=== PATIENT | female | born 1945 | race Two or more races ===

== ENCOUNTER 2021-04-11 19:50 | Emergency (ER) | payer MEDICARE, MEDICAID, SELFPAY ==
[2021-04-11 20:18] VITALS: BP 125/55; PULSE 58; RESP 18; TEMP 36.6; O2SAT 99; BMI 29.5
--- NOTE | 2021-04-11 21:06 | ED.EXTPRO ---
HPI - Extremity Problem General Chief complaint: Extremity Problem Stated complaint: Knee pain Time Seen by Provider: 04/11/21 21:02 Source: patient and family Limitations: language barrier ( family interpreted) History of Present Illness HPI Narrative: patient is a 75-year-old female with a past medical history of right knee replacement presenting with left knee pain. Patient's family states her knee pain started a little while ago but got worse last week after she was kneeling on her bed for an extended period of time. They state it is worse when she is standing and much worse when she is walking. Patient said she has been taking naproxen without relief. She uses a cane or home but this is not enough to help her ambulate safely. She has been trying to see her primary care doctor but her primary care doctor is out on a long-term leave. Her family states she has a appointment with Orthopedics on April 26 but a referral is required prior to her going. Related Data Home Medications Medication Instructions Recorded Confirmed lorazepam 0.5 mg tablet 0.5 mg PO BEDTIME PRN 09/26/20 paroxetine HCl 10 mg tablet 10 mg PO DAILY 09/26/20 Previous Rx's Medication Instructions Recorded pregabalin 150 mg capsule 150 mg PO BID 90 Days #180 cap 12/18/20 naproxen sodium 550 mg tablet 550 mg PO Q12H 90 Days #180 tab 03/21/21 Allergies Allergy/AdvReac Type Severity Reaction Status Date / Time No Known Allergies Allergy Verified 09/26/20 14:09 [No Known Allergies*] Review of Systems Review of Systems: Yes all other systems are reviewed and are negative [facility] Past Medical History Surgical History History of cataract surgery History of section History of knee replacement procedure of right knee History of shoulder surgery History of toe surgery Family History Family History Father Alzheimers disease Mother Vaginal cancer Brother Stomach cancer Social History Social History Advance Directives: No Physical Exam Vital Signs: Vital Signs: Last Vital Signs Temp 97.9 F 04/11/21 20:18 Pulse 58 04/11/21 20:18 Resp 18 04/11/21 20:18 BP 125/55 L 04/11/21 20:18 Pulse Ox 99 04/11/21 20:18 Body Mass Index 29.5 Const: General: cooperative, healthy appearing, comfortable and no acute distress Nutritional Appearance: obese Orientation/consciousness: patient oriented x3 Limitations: language barrier ( Bengali-speaking) HENMT: Head: Yes normal to inspection and Yes normocephalic Eyes: General: appearance normal, both eyes and all related structures Neck: Neck: Yes normal visual inspection and Yes full ROM Resp: Effort & Inspection: normal respiratory effort and able to speak in complete sentences Neuro: General: patient oriented x3 Extrem: Other: Right knee has long vertical scar over kneecap, otherwise unremarkable Left knee normal to inspection, full range of motion, no edema, no tenderness to palpation, no signs of infection noted, no laxity in the joint, neg patellar ballottement. Difficulty ambulating. Course Course Course Narrative: will give Toradol injection for pain control, wrapped knee and give patient a walker so she is safe at home. Will send referral to Orthopedics. Discharge Plan Discharge Clinical Impression: Knee pain, left Qualifiers: Chronicity: acute Qualified Code(s): M25.562 - Pain in left knee Patient Disposition: Home, Self-Care Instructions: Knee Pain (ED) Prescriptions: No Action pregabalin [Lyrica] 150 mg capsule 150 mg PO BID 90 Days Qty: 180 RF: 1 naproxen sodium 550 mg tablet 550 mg PO Q12H 90 Days Qty: 180 RF: 3 lorazepam 0.5 mg tablet 0.5 mg PO BEDTIME PRNRF: 0 paroxetine HCl 10 mg tablet 10 mg PO DAILY RF: 0 Referrals: Khris Guerrero MD [Physician] - 2 days (pt has appt on 04/26, she needs a referral for it but her PCP is out [facility], left knee pain) Print Language: Bengali
[2021-04-11] MEDS: Ketorolac Tromethamine 60 MG/2 ML VIAL IM (21:13)
== END 2021-04-11 21:21 | disposition home or self-care (01) ==
PROVIDERS: Emergency Provider Internal Medicine; PCP Hospitalist
DX: M25.562 Pain in left knee (principal)
CPT/HCPCS: 96372; 99283; 99284; J1885

== ENCOUNTER 2021-04-26 09:29 | Outpatient (REF) | payer MEDICARE, MEDICAID, SELFPAY ==
--- NOTE | ~2021-04-26 | XR_ITS ---
EXAMINATION: BILATERAL KNEES STANDING. LEFT KNEE. CLINICAL INFORMATION: Pain left knee. COMPARISON: None TECHNIQUE: AP bilateral knees standing. Left knee 2 views. FINDINGS: AP bilateral knee: There is a total right knee arthroplasty with prosthetic components in satisfactory alignment. No loosening. There is moderate loss of medial compartment joint space left knee. There is mild loss of patellofemoral compartment joint space with minimal suprapatellar joint effusion. There is mild periarticular spurring in the tricompartments of the left knee. No acute fracture or dislocation. XR/XR knee standing BI IMPRESSION: Mild degenerative changes in the tricompartments of left knee with moderate loss in medial and mild loss of patellofemoral compartment joint space. Minimal suprapatellar joint effusion. Total right knee arthroplasty with prosthetic components in satisfactory alignment.
--- NOTE | ~2021-04-26 | XR_ITS ---
EXAMINATION: BILATERAL KNEES STANDING. LEFT KNEE. CLINICAL INFORMATION: Pain left knee. COMPARISON: None TECHNIQUE: AP bilateral knees standing. Left knee 2 views. FINDINGS: AP bilateral knee: There is a total right knee arthroplasty with prosthetic components in satisfactory alignment. No loosening. There is moderate loss of medial compartment joint space left knee. There is mild loss of patellofemoral compartment joint space with minimal suprapatellar joint effusion. There is mild periarticular spurring in the tricompartments of the left knee. No acute fracture or dislocation. XR/XR knee LT 2V IMPRESSION: Mild degenerative changes in the tricompartments of left knee with moderate loss in medial and mild loss of patellofemoral compartment joint space. Minimal suprapatellar joint effusion. Total right knee arthroplasty with prosthetic components in satisfactory alignment.
== END 2021-04-26 09:30 | disposition home or self-care (01) ==
LOC: HO.HOSX 09:29
PROVIDERS: Visit Provider Orthopaedic Surgery
DX: M17.12 Unilateral primary osteoarthritis, left knee (principal); M54.16 Radiculopathy, lumbar region; Z96.651 Presence of right artificial knee joint
CPT/HCPCS: 20610; 73560; 73565; 99212; J1100

== ENCOUNTER → 2021-07-29 10:15 | Outpatient (BNVA) | payer MEDICARE, MEDICAID, SELFPAY | PROVIDERS: Visit Provider Orthopaedic Surgery | DX: M17.12 Unilateral primary osteoarthritis, left knee (principal) | CPT/HCPCS: 20610; 99212; J1100 ==

== ENCOUNTER → 2021-10-28 10:07 | Outpatient (BNVA) | payer MEDICARE, MEDICAID, SELFPAY | PROVIDERS: PCP Hospitalist; Visit Provider Orthopaedic Surgery | DX: M17.12 Unilateral primary osteoarthritis, left knee (principal); M75.52 Bursitis of left shoulder; Z96.651 Presence of right artificial knee joint | CPT/HCPCS: 99212 ==

== ENCOUNTER 2023-10-28 12:47 | Emergency (ER) | payer MEDICARE, MEDICAID, SELFPAY ==
--- NOTE | ~2023-10-28 | CT_ITS ---
EXAMINATION: CT ANGIOGRAM OF THE CHEST WITH AND WITHOUT CONTRAST (CT PULMONARY ANGIOGRAM FOR PE) CLINICAL INFORMATION: History of Covid 19 infection; shortness of breath; question pulmonary embolus. COMPARISON: Chest radiographs dated 10/28/2013. TECHNIQUE: Prior to contrast administration, noncontrast localization images were obtained. Subsequently, multidetector volumetric imaging was performed from the thoracic inlet to below the diaphragms following the administration of 65 mL Omnipaque 350 intravenous contrast. No contrast reaction reported Sagittal, coronal, and MIP oblique sagittal reformatted images were obtained on the CT workstation, uploaded to PACS, and reviewed. This CT examination was performed using dose optimization techniques as appropriate, variously including the following: *Automated exposure control *Adjustment of mA and/or kV according to patient size (this includes techniques or standardized protocols for targeted exams where dose is matched to indication/reason for exam; i.e. extremities or head) *Use of iterative reconstruction technique Total exam dose-length product 200 mGy-cm FINDINGS: QUALITY OF STUDY/CONTRAST BOLUS: Satisfactory. PULMONARY ARTERIES: No pulmonary emboli. THORACIC AORTA: No aneurysm or dissection. LUNG: There is patchy groundglass attenuation, most pronounced within the posterior segment of the right upper lobe. There is bibasilar dependent hypoaeration. No nodule or mass is seen. There is generalized small airway thickening. The central airways appear patent. PLEURA: No pleural effusion or pneumothorax. MEDIASTINUM: There is mild cardiomegaly. No pericardial effusion. No hilar or mediastinal lymphadenopathy. No evidence of septal bowing or right heart strain. CORONARY ARTERY CALCIFICATION: None visualized on this study. CHEST WALL/AXILLA: No axillary or internal mammary lymphadenopathy. OSSEOUS STRUCTURES: There is multi-level marked mid to lower thoracic degenerative disc disease and spondylosis. No acute or aggressive osseous finding is noted. UPPER ABDOMEN: Unremarkable. No reflux of contrast into the hepatic veins to suggest elevated right heart pressures. CT/CT angio chest PE protocol IMPRESSION: 1. There are patchy foci of groundglass attenuation, most pronounced within the posterior segment of the right upper lobe. These are likely infectious or inflammatory in etiology. Recommend clinical correlation and short-term follow-up CT imaging 1-3 months to ensure regression/resolution. 2. There is generalized small airway thickening, also likely infectious or inflammatory etiology. 3. No pulmonary embolus is seen. There is no thoracic aortic aneurysm or dissection noted. 4. There is cardiomegaly. 5. There are multi-level markedly degenerative changes of the mid to lower thoracic spine. VTE: negative
--- NOTE | ~2023-10-28 | XR_ITS ---
EXAMINATION: XR CHEST CLINICAL INFORMATION: Shortness of breath. COMPARISON: Chest radiograph dated 11/16/2017. TECHNIQUE: 2 views of the chest were obtained. FINDINGS: No airspace consolidation. No pleural effusion or pneumothorax. Stable cardiac mediastinal silhouette. Exaggerated thoracic kyphosis. XR/XR chest 2V IMPRESSION: No acute cardiopulmonary findings.
[2023-10-28 12:57] VITALS: BP 148/82; PULSE 58; RESP 18; TEMP 36.6; O2SAT 99; BMI 30.9
--- NOTE | 2023-10-28 12:59 | ED_ITS ---
HPI - General Adult General Chief complaint: Weakness Stated complaint: Diff Breathing Post COVID Time Seen by Provider: 10/28/23 17:51 Source: patient History of Present Illness HPI narrative: Patient history of asthma at [facility] last month since then been feeling weak short of breath since then never got better saturating 99% at room air feel short of breath when she ambulates and has to stop no chest pain or palpitation patient has been using inhaler without much response Related Data Home Medications Medication Instructions Recorded Confirmed lorazepam 0.5 mg tablet 0.5 mg PO BEDTIME PRN 09/26/20 07/02/21 paroxetine HCl 10 mg tablet 10 mg PO DAILY 09/26/20 07/02/21 Previous Rx's Medication Instructions Recorded naproxen sodium 550 mg tablet 550 mg PO Q12H 90 days #180 tabs 03/21/21 Lift Chair- [id number]. [id number] #1 ea 05/13/21 pregabalin 150 mg capsule (Lyrica) 150 mg PO BID 3 months #180 caps 07/02/21 fluticasone propionate 50 1 spray intranasal DAILY 30 days 12/30/21 mcg/actuation nasal #16 grams spray,suspension cefuroxime axetil 500 mg tablet 500 mg PO BID 10 days #20 tabs 10/28/23 codeine 10 mg-guaifenesin 100 mg/5 10 ml PO Q6H PRN cough #237 mL 10/28/23 mL oral liquid prednisone 20 mg tablet 40 mg (2 x 20 mg) PO DAILY #10 tabs 10/28/23 Allergies Allergy/AdvReac Type Severity Reaction Status Date / Time No Known Allergies Allergy Verified 10/28/23 13:02 [No Known Allergies*] Review of Systems 2 Review of Systems: Yes all other systems are reviewed and are negative PMFSH Past Medical History Onset Date is defined in the Problem List Problems that require an onset date and time if occurred within 24 hrs of arrival to the ED Aortic Dissection and Rupture; Neurologic impairment; Cardiopulmonary Arrest; Endotracheal Intubation; Insertion or Replacement of Mechanical Circulatory Assist Device Surgical History History of cataract surgery History of shoulder surgery History of toe surgery History of section History of knee replacement procedure of right knee Family History Family History Father Alzheimers disease Mother Vaginal cancer Brother Stomach cancer Son Substance use disorder Sister Substance use disorder Social History Social History Housing: Apartment Patient Tobacco Use Status: Never used Tobacco Smoked in Last 30 Days: No e-Cigarette/Vaping Use: Never Used Second Hand Smoke Exposure: No Use of substances other than those prescribed or required for medical reasons: No Advance Directives: No Advance Directives Information Provided: No service: No Current occupational status: retired Current occupation: rt handed Physical Exam ED Vital Signs: Vital Signs - 24 hr 10/28/23 12:57 10/28/23 17:49 10/28/23 18:37 Temperature 97.8 F Pulse Rate 58 61 53 Respiratory Rate 18 18 16 Blood Pressure 148/82 H 138/67 Pulse Oximetry 99 98 Oxygen Delivery Method Room Air Room Air BMI result Body Mass Index 30.9 Appearance: Alert. Oriented X3. No acute distress. Eyes: PERRLA, No Nystagmus ENT: Pharynx normal. Oral Mucosa moist Neck: Normal inspection. Neck supple. CVS: Normal heart rate and rhythm. Pulses normal. Respiratory: No respiratory distress. Equal air entry bilateral, no wheezing/rales/rhonchi prolonged expiration Abdomen: Soft and nontender. Bowel sounds are present, no mass palpable, no CVA tenderness Skin: Skin warm and dry. Normal skin color. Normal skin turgor. Extremities: No lower extremity edema. No calf tenderness Neuro: Oriented X 3. No motor deficit. Course Course Course Narrative: RME:?77 yo female w/ hx of asthma here w/ SOB, weakness, chest pressure. had covid 1.5 mos ago. Since this time, reports increased SOB, asthma exacerbations and generalized weakness. uses albuterol inhaler at home 1x daily. Denies decreased appetite, chest pain, fevers. daughter at bedside to interpret. lungs cta b/l. exam nonfocal. aox3. plan for basic labs, serology, chest xr Full HPI, ROS and PE to be performed by the primary ED provider. Medications Administered Discontinued Medications Generic Name Dose Route Start Last Admin Trade Name Freq PRN Reason Stop Dose Admin Cefuroxime Axetil 500 mg 10/28/23 22:35 10/28/23 22:54 Cefuroxime Axetil 500 Mg Tablet PO 10/28/23 22:36 500 mg ONCE ONE Administration Albuterol Sulfate 2.5 mg/ 0 mg 10/28/23 18:24 10/28/23 18:34 Albuterol/Ipratropium 3 ml INHALE 10/28/23 18:25 1 dose ONCE ONE Administration Iohexol 65 ml 10/28/23 20:32 10/28/23 20:32 Iohexol 350 Mg/Ml 100 Ml Infus..Btl IV 10/28/23 20:33 65 ml ONCE ONE Administration Methylprednisolone Sodium Succinate 125 mg 10/28/23 22:35 10/28/23 22:54 Methylprednisolone Sod Succ 125 Mg/2 Ml Vial IVPUSH 10/28/23 22:36 125 mg ONCE ONE Administration Medical Decision Making Medical Decision Making [facility] Narrative: Patient history of asthma with recent COVID comes here for increased shortness of breath on exertion workup negative for PE or significant pneumonia showed inflammatory changes in the lung post COVID likely. No signs of CHF. Patient will discharge on Ceftin prednisone and advised to continue inhaler Differential Diagnosis Differential Diagnoses: The differential diagnosis associated with the presentation includes Pneumonia/atypical pneumonia/PE/CHF Admission/Observation Consideration of admission/observation: Escalation of care including admission/observation considered Lab Data [facility] Lab Attestation statement: I reviewed the patient's lab results. 10/28/23 13:21 10/28/23 13:21 Labs: Lab Results 10/28/23 Range/Units 13:21 WBC 4.2 L (4.8-10.8) X10*3/uL RBC 4.81 (4.20-5.50) X10*6/uL Hgb 14.2 (12.0-16.0) g/dl Hct 43.3 (37.0-47.0) % MCV 90.0 (80.0-98.0) fL MCH 29.5 (27.0-33.0) pg MCHC 32.8 (31.0-35.0) g/dl RDW 16.0 (11.0-16.0) % Plt Count 217 (160-400) X10*3/uL MPV 11.6 (9.4-12.3) fL Immature Gran % (Auto) 0.0 (0.0-0.4) % Neut % (Auto) 42.8 L (45-73) % Lymph % (Auto) 29.2 (20-40) % Pope % (Auto) 8.5 (2-11) % Eos % (Auto) 18.6 H (0-4) % Baso % (Auto) 0.9 (0-2) % Lymph # (Auto) 1.2 (1.2-4.9) X10*3/uL Pope # (Auto) 0.4 (0.1-1.2) X10*3/uL Eos # (Auto) 0.8 H (0.0-0.4) X10*3/uL Baso # (Auto) 0.0 (0.0-0.2) X10*3/uL Abs Immat Gran (auto) 0.00 (0.00-0.03) X10*3/uL Absolute Neuts (auto) 1.8 L (2.0-8.3) x10*3/uL Absolute Nucleated RBC 0.000 (0.0-0.012) X10*3/uL Nucleated RBC % (auto) 0.0 (0.0-0.2) /100WBC PT 11.3 (11.1-13.3) SEC INR 0.9 (0.9-1.1) D-Dimer High Sensitivty 285 NG/ML Sodium 141 (135-145) mmol/L Potassium 4.4 (3.3-5.1) mmol/L Chloride 109 H (96-108) mmol/L Carbon Dioxide 28 (22-29) mmol/L Anion Gap 8 L (12-20) BUN 21 H (9-16) mg/dL Creatinine 0.86 (0.5-1.4) mg/dL Estim Creat Clear Calc 56.6 Estimated GFR > 60 Random Glucose 89 (60-115) mg/dL Calcium 9.7 (8.4-10.2) mg/dL Magnesium 2.2 (1.6-2.6) mg/dL Troponin I High Sens < 2.7 (<3.5-17.0) ng/L Lipase 24 (8-78) U/L COVID-19 (TRENT) Negative (Negative) COVID-19 Clin Com See Note Influenza Type A ([facility]ANGELISTA) Negative (Negative) Influenza Type B (EVANGELISTA) Negative (Negative) Influenza A & B Note See Note Independent Interpretation I performed an independent interpretation of an: EKG and CT Scan Interpretation: Normal sinus rhythm heart rate 64 beats per minute occasional PVCs no acute ST T wave changes no acute ischemia Radiology Impression Discussion of test interpretation with radiology: I have reviewed the radiologist's reading. Radiologist Impression: [id number] [place] [address] CT Scan Report Signed Patient: Ford Munguia MR#: [id number] : 1945 Acct:[id number] Age/Sex: 77 / F ADM Date: 10/28/23 Loc: HO.ED Attending Dr: Ordering Physician: Akhil Quiroz MD Date of Service: 10/28/23 Procedure(s): CT angio chest PE protocol Accession Number(s): [id number] cc: [employer] SOFTWARE SYSTEMS ANALYST; Akhil Quiroz MD~ EXAMINATION: CT ANGIOGRAM OF THE CHEST WITH AND WITHOUT CONTRAST (CT PULMONARY ANGIOGRAM FOR PE) CLINICAL INFORMATION: History of Covid 19 infection; shortness of breath; question pulmonary embolus. COMPARISON: Chest radiographs dated 10/28/2013. TECHNIQUE: Prior to contrast administration, noncontrast localization images were obtained. Subsequently, multidetector volumetric imaging was performed from the thoracic inlet to below the diaphragms following the administration of 65 mL Omnipaque 350 intravenous contrast. No contrast reaction reported Sagittal, coronal, and MIP oblique sagittal reformatted images were obtained on the CT workstation, uploaded to PACS, and reviewed. This CT examination was performed using dose optimization techniques as appropriate, variously including the following: *Automated exposure control *Adjustment of mA and/or kV according to patient size (this includes techniques or standardized protocols for targeted exams where dose is matched to indication/reason for exam; i.e. extremities or head) *Use of iterative reconstruction technique Total exam dose-length product 200 mGy-cm FINDINGS: QUALITY OF STUDY/CONTRAST BOLUS: Satisfactory. PULMONARY ARTERIES: No pulmonary emboli. THORACIC AORTA: No aneurysm or dissection. LUNG: There is patchy groundglass attenuation, most pronounced within the posterior segment of the right upper lobe. There is bibasilar dependent hypoaeration. No nodule or mass is seen. There is generalized small airway thickening. The central airways appear patent. PLEURA: No pleural effusion or pneumothorax. MEDIASTINUM: There is mild cardiomegaly. No pericardial effusion. No hilar or mediastinal lymphadenopathy. No evidence of septal bowing or right heart strain. CORONARY ARTERY CALCIFICATION: None visualized on this study. CHEST WALL/AXILLA: No axillary or internal mammary lymphadenopathy. OSSEOUS STRUCTURES: There is multi-level marked mid to lower thoracic degenerative disc disease and spondylosis. No acute or aggressive osseous finding is noted. UPPER ABDOMEN: Unremarkable. No reflux of contrast into the hepatic veins to suggest elevated right heart pressures. CT/CT angio chest PE protocol IMPRESSION: 1. There are patchy foci of groundglass attenuation, most pronounced within the posterior segment of the right upper lobe. These are likely infectious or inflammatory in etiology. Recommend clinical correlation and short-term follow-up CT imaging 1-3 months to ensure regression/resolution. 2. There is generalized small airway thickening, also likely infectious or inflammatory etiology. 3. No pulmonary embolus is seen. There is no thoracic aortic aneurysm or dissection noted. 4. There is cardiomegaly. 5. There are multi-level markedly degenerative changes of the mid to lower thoracic spine. VTE: negative Discharge Plan Discharge Clinical Impression: Bronchitis Patient Disposition: Home, Self-Care Instructions: Acute Bronchitis (ED) Additional Instructions: Continue to use your inhaler treatment Prednisone as prescribed Antibiotic as prescribed Take cough drops as prescribed Follow with PCP if not better Contin?e usando aden tratamiento con inhalador. Prednisona seg?n lo prescrito Antibi?sadie seg?n prescripci?n [place] pastillas para la tos seg?n lo prescrito Seguir con PCP si no es mejor Prescriptions: New prednisone 20 mg tablet 40 mg PO DAILY Qty: 10 0RF codeine-guaifenesin 10-100 mg/5 mL liquid 10 ml PO Q6H PRN (Reason: cough) Qty: 237 0RF cefuroxime axetil 500 mg tablet 500 mg PO BID 10 Days Qty: 20 0RF No Action naproxen sodium 550 mg tablet 550 mg PO Q12H 90 Days Qty: 180 3RF fluticasone propionate 50 mcg/actuation spray,suspension 1 spray intranasal DAILY 30 Days Qty: 16 4RF Rx Instructions: administer into each nostril lorazepam 0.5 mg tablet 0.5 mg PO BEDTIME PRN paroxetine HCl 10 mg tablet 10 mg PO DAILY pregabalin [Lyrica] 150 mg capsule 150 mg PO BID 90 Days Qty: 180 1RF (DME) Lift Chair- [id number]. A9900 See Rx Instructions .Route .MEDSUPPLY Qty: 1 0RF Rx Instructions: As directed Interventions: ED Discharge Assessment Last Done: 10/28/23 23:06 Discharge Date/Time: 10/28/23 23:07 Print Language: Belgian
--- NOTE | 2023-10-28 13:03 | ECG_ITS ---
Test Reason : SOB Blood Pressure : / mmHG Vent. Rate : 064 BPM Atrial Rate : 064 BPM P-R Int : 214 ms QRS Dur : 088 ms QT Int : 390 ms P-R-T Axes : 031 -24 029 degrees QTc Int : 402 ms Sinus rhythm with sinus arrhythmia with 1st degree A-V block with occasional Premature ventricular complexes Abnormal ECG No significant changes when compared with the previous EKG of 08 january 2018 Referred By: Racquel Mckeon Electronically Signed By:JAYLENE FALL
[2023-10-28 13:27] LABS: MANUAL DIFF FLAG NO
[2023-10-28 13:32] LABS: Basophils Percent Auto 0.9 % (0-2); Eosinophils Absolute Auto 0.8 X10*3/uL (0.0-0.4); Eosinophils Percent Auto 18.6 % (0-4); Hematocrit 43.3 % (37.0-47.0); Hemoglobin 14.2 g/dl (12.0-16.0); Lymphocytes Absolute Auto 1.2 X10*3/uL (1.2-4.9); Lymphocytes Percent Auto 29.2 % (20-40); Mean Corpuscular HGB Conc 32.8 g/dl (31.0-35.0); Mean Corpuscular Hemoglobin 29.5 pg (27.0-33.0); Mean Platelet Volume 11.6 fL (9.4-12.3); Monocytes Absolute Auto 0.4 X10*3/uL (0.1-1.2); Monocytes Percent Auto 8.5 % (2-11); Neutrophils Absolute Auto 1.8 x10*3/uL (2.0-8.3); Neutrophils Percent Auto 42.8 % (45-73); Platelet Count 217 X10*3/uL (160-400); Red Blood Count 4.81 X10*6/uL (4.20-5.50); White Blood Count 4.2 X10*3/uL (4.8-10.8)
[2023-10-28 13:41] LABS: Anion Gap 8 (12-20); Blood Urea Nitrogen 21 mg/dL (9-16); Calcium 9.7 mg/dL (8.4-10.2); Carbon Dioxide 28 mmol/L (22-29); Chloride 109 mmol/L (96-108); Creatinine Clr Calc Pharmacy 56.6; Estimated Glomerular Filt Rate > 60; Glucose Random 89 mg/dL (60-115); Lipase 24 U/L (8-78); Magnesium 2.2 mg/dL (1.6-2.6); Potassium 4.4 mmol/L (3.3-5.1); Sodium 141 mmol/L (135-145)
[2023-10-28 13:44] LABS: COVID-19 Test Negative (Negative); IDNOW Serial# 08D9AD1C
[2023-10-28 13:45] LABS: IDNOW Serial# 9DB6401D; Influenza A Negative (Negative); Influenza B2 Negative (Negative)
[2023-10-28 13:50] LABS: Troponin-I High Sensitivity < 2.7 ng/L (<3.5-17.0)
[2023-10-28 14:48] LABS: INTERNATIONAL NORM RATIO 0.9 (0.9-1.1); Prothrombin Time 11.3 SEC (11.1-13.3)
[2023-10-28 17:49] VITALS: BP 138/67; PULSE 61; RESP 18; O2SAT 98
[2023-10-28 18:34] LABS: D Dimer High Sensitivity 285 NG/ML
[2023-10-28] MEDS: Albuterol Sulfate 2.5 MG, Albuterol/Iprat 2.5/0.5MG 3 ML 3 ML INHALE (18:34)
[2023-10-28 18:37] VITALS: PULSE 53; RESP 16; O2SAT 99
[2023-10-28] MEDS: iohexoL 350 MG/ML 100 ML INFUS..BTL 65 ML IV (20:32)
[2023-10-28] MEDS: cefuroxime axetiL 500 MG TABLET PO (22:54)
[2023-10-28] MEDS: methylPREDNISolone Sod Succ 125 MG/2 ML VIAL IVPUSH (22:54)
== END 2023-10-28 23:07 | disposition home or self-care (01) ==
PROVIDERS: Physician Assistant Medical; Emergency Provider Internal Medicine; PCP Nurse Practitioner Acute Care
DX: J40 Bronchitis, not specified as acute or chronic (principal); R06.02 Shortness of breath; Z11.52 Encounter for screening for COVID-19
CPT/HCPCS: 71046; 71275; 80048; 83690; 83735; 84484; 85025; 85379; 85610; 87502; 87635; 93005; 94640; 96374; 99284; 99285; J2930; Q9967

== ENCOUNTER → 2023-10-28 13:03 | Outpatient (BNV) | payer MEDICARE, MEDICAID, SELFPAY | PROVIDERS: PCP Nurse Practitioner Acute Care; Visit Provider Internal Medicine | DX: I44.0 Atrioventricular block, first degree (principal); I49.3 Ventricular premature depolarization | CPT/HCPCS: 93010 ==

== ENCOUNTER 2024-03-18 14:38 | Outpatient (AMB) | payer MEDICARE, MEDICAID, SELFPAY ==
[2024-03-18 14:45] VITALS: BP 104/62; PULSE 71; O2SAT 95; BMI 29.7
--- NOTE | 2024-03-18 14:45 | MHC.OFFVIS ---
Vital Signs 03/18/24 14:45 Height 5 ft 4 in Weight 173 lb 1.006 oz BMI 29.7 BP 104/62 Blood Pressure Location Rt brachial Position Sitting Pulse 71 Pulse Source Doppler Pulse Oximetry (%) 95 Oxygen Delivery Method Room Air Intake Visit Reasons: pulmonary nodule Legal Paraprofessional Required: Yes Legal Paraprofessional Name: Nenita Bajwa Becky Allergies No Known Allergies [No Known Allergies*] Allergy (Verified 03/18/24 14:52) HPI HPI pulmonary nodule: Details: 78-year-old lady, nonsmoker, with underlying history of asthma in childhood that resolved in her 20s and came back after patient moved from [place] to [facility] approximately 7 years prior. Patient also had CT chest that demonstrated pulmonary nodules. She denies prior family history of lung disease. Patient denies exposure to industrial dusts. She is currently using Trelegy and albuterol MDI with good control of her asthma symptoms. Patient also complains of multiple environmental allergies. [facility] Surgical History History of cataract surgery History of shoulder surgery History of toe surgery History of section History of knee replacement procedure of right knee Family History Father Alzheimers disease Mother Vaginal cancer Brother Stomach cancer Son Substance use disorder Sister Substance use disorder Social History Housing: Apartment Patient Tobacco Use Status: Never used Tobacco e-Cigarette/Vaping Use: Never Used Second Hand Smoke Exposure: No service: No Current occupational status: retired Current occupation: rt handed Review of Systems Const Denies daytime sleepiness, Denies excessive sweating, Denies fatigue, Denies fever(s), Denies lethargy, Denies malaise, Denies night sweats, Denies snoring and Denies weight loss Eyes Denies blurry vision and Denies itchy eyes ENT Denies nasal congestion, Denies post nasal drip, Denies sinus pain, Denies sinus pressure and Denies other ( Thrush) Card Denies chest pain, Denies pedal edema, Denies dyspnea, Denies orthopnea and Denies paroxysmal nocturnal dyspnea Resp Denies cough, Denies hemoptysis, Denies excessive phlegm production, Denies dyspnea, Denies snoring and Reports wheezing GI Denies abdominal pain and Denies heartburn Musc Denies myalgias, Denies arthralgias and Denies joint swelling Skin/Breast Denies rash Neuro Denies memory loss and Denies seizure-like activity Psych Denies abnormal sleep pattern, Denies anxiety and Denies memory loss Endo Denies excessive sweating, Denies fatigue and Denies heat intolerance Star/Lymph Denies easy bruising Aller/Immun Denies itchy eyes, Denies seasonal rhinorrhea and Reports wheezing Physical Exam Vital Signs: Last Vital Signs Pulse 71 03/18/24 14:45 BP 104/62 03/18/24 14:45 Pulse Ox 95 03/18/24 14:45 Oxygen Delivery Method Room Air 03/18/24 14:45 BMI result Body Mass Index 29.7 Const General: no acute distress and alert Nutritional Appearance: not obese Orientation/consciousness: Other orientation findings ( oriented) HEENT Head: Yes atraumatic Eyes General: appearance normal, both eyes and all related structures Sclerae: sclerae normal EOM: EOMs intact bilaterally Neck Neck: Yes supple Lymphatic: no lymphadenopathy noted Resp Effort & Inspection: normal respiratory effort and no use of accessory muscles Auscultation: clear to auscultation bilaterally Cardio Rate: regular rate Rhythm: regular rhythm Heart sounds: no gallops, no murmurs and no rubs Skin General skin exam: other ( warm) Extrem General: No clubbing, No cyanosis and No edema Assessment & Plan Assessment & Plan (1) Asthma: Code(s): J45.909 - Unspecified asthma, uncomplicated Category: Medical Plan: At this time appears to be reasonably controlled on Trelegy and albuterol MDI. Continue current regimen. Will obtain full PFT. (2) Pulmonary nodules: Code(s): R91.8 - Other nonspecific abnormal finding of lung field Category: Medical Plan: Underlying pulmonary nodules noted on CT angio chest, will repeat CT chest to evaluate for evolution. (3) Environmental allergies: Code(s): Z91.09 - Other allergy status, other than to drugs and biological substances Category: Medical Plan: Will obtain IgE level, CBC with differential and RAST panel for further evaluation. Orders: Orders CT chest wo IV con Today R91.8 - Other nonspecific abnormal finding of lung field PFT pulmonary function test Today J45.909 - Unspecified asthma, uncomplicated Resp Allergy Profile Region I Today Z91.09 - Other allergy status, other than to drugs and biological substances Complete Blood Count Auto Diff Today Z91.09 - Other allergy status, other than to drugs and biological substances Coding Level of Care Code New Pt Level 4 (35573) Diagnoses Asthma J45.909 Pulmonary nodules R91.8 Environmental allergies Z91.09
== END 2024-03-18 15:10 | disposition home or self-care (01) ==
PROVIDERS: PCP Nurse Practitioner Acute Care; Visit Provider Internal Medicine Pulmonary Disease
DX: J45.909 Unspecified asthma, uncomplicated (principal); R91.8 Other nonspecific abnormal finding of lung field; Z91.09 Other allergy status, other than to drugs and biological substances
CPT/HCPCS: 99204

== ENCOUNTER 2024-03-18 14:38 | Outpatient (REF) | payer MEDICARE, SELFPAY ==
[2024-03-18 15:27] LABS: MANUAL DIFF FLAG NO
[2024-03-18 15:52] LABS: Basophils Percent Auto 0.7 % (0-2); Eosinophils Absolute Auto 0.5 X10*3/uL (0.0-0.4); Eosinophils Percent Auto 9.7 % (0-4); Hematocrit 41.4 % (37.0-47.0); Hemoglobin 13.8 g/dl (12.0-16.0); Imm Gran Abs Auto 0.01 X10*3/uL (0.00-0.03); Imm Gran Pct Auto 0.2 % (0.0-0.4); Lymphocytes Absolute Auto 1.4 X10*3/uL (1.2-4.9); Lymphocytes Percent Auto 25.7 % (20-40); Mean Corpuscular HGB Conc 33.3 g/dl (31.0-35.0); Mean Platelet Volume 11.9 fL (9.4-12.3); Monocytes Absolute Auto 0.5 X10*3/uL (0.1-1.2); Monocytes Percent Auto 8.6 % (2-11); Neutrophils Absolute Auto 2.9 x10*3/uL (2.0-8.3); Neutrophils Percent Auto 55.1 % (45-73); Platelet Count 242 X10*3/uL (160-400); Red Blood Count 4.45 X10*6/uL (4.20-5.50); Red Cell Distribution Width 14.9 % (11.0-16.0); White Blood Count 5.3 X10*3/uL (4.8-10.8)
[2024-03-21 19:18] LABS: Class Alternaria alternata 0; Class Aspergillus fumigatus 0; Class Bermuda Grass 0; Class Birch 0; Class Cat Dander 0; Class Cladosporium herbarum 0; Class Cockroach 0; Class Common Ragweed 0; Class Cottonwood 0; Class Derm. pterony 0; Class Dermatophagoides farinae 0; Class Dog Dander 0; Class Elm 0; Class Maple Box Elder 0; Class Mountain Cedar 0; Class Mouse Urine Protein 0; Class Mugwort 0; Class Oak 0; Class Penicillium crysogenum 0; Class Rough Pigweed 0; Class Sheep Sorrel 0; Class Sycamore 0; Class Timothy Grass 0; Class Walnut Tree 0; Class White Ash 0; Class White Mulberry 0; D001 IgE D pteronyssinus <0.10 kU/L; D002 - IgE D farinae <0.10 kU/L; E001 - IgE Cat Dander <0.10 kU/L; E005 - IgE Dog Dander <0.10 kU/L; E072-IgE Mouse Urine <0.10 kU/L; G002 IgE Bermuda Grass <0.10 kU/L; G006 - IgE Timothy Grass <0.10 kU/L; I006-IgE Cockroach, German <0.10 kU/L; Immunoglobulin E 142 kU/L (<OR=114); M001 IgE Penicillium chrysogen <0.10 kU/L; M002 - IgE Cladosporium herbar <0.10 kU/L; M003 - IgE Aspergillus fumigat <0.10 kU/L; M006 - IgE Alternaria alternat <0.10 kU/L; T001 IgE Maple/Box Elder <0.10 kU/L; T003 IgE Common Silver Birch <0.10 kU/L; T006 - IgE Cedar, Mountain <0.10 kU/L; T007 - IgE Oak, White <0.10 kU/L; T008 IgE Elm, American <0.10 kU/L; T010 - IgE Walnut <0.10 kU/L; T011 - IgE Maple Leaf Sycamore <0.10 kU/L; T014 - IgE Cottonwood <0.10 kU/L; T015 - IgE Ash, White <0.10 kU/L; T070 - IgE White Mulberry <0.10 kU/L; W001 - IgE Ragweed, Short <0.10 kU/L; W006 - IgE Mugwort <0.10 kU/L; W014 IgE Pigweed, Common <0.10 kU/L; W018 IgE Sheep Sorrel <0.10 kU/L
== END 2024-03-18 14:39 | disposition home or self-care (01) ==
LOC: HO.LAB 14:38
PROVIDERS: PCP Nurse Practitioner Acute Care; Visit Provider Internal Medicine Pulmonary Disease
DX: J45.909 Unspecified asthma, uncomplicated (principal); R91.8 Other nonspecific abnormal finding of lung field; Z91.09 Other allergy status, other than to drugs and biological substances
CPT/HCPCS: 36415; 82785; 85025; 86003; 99202

== ENCOUNTER 2024-04-22 13:46 | Outpatient (REF) | payer MEDICARE, MEDICAID, SELFPAY ==
--- NOTE | ~2024-04-22 | CT_ITS ---
EXAMINATION: CT CHEST WITHOUT CONTRAST CLINICAL INFORMATION: Nonspecific lung finding COMPARISON: 10/28/2023 TECHNIQUE: Multidetector volumetric CT imaging of the chest was done. Axial MIP volume rendering provided. Sagittal and coronal reformatted images were obtained. This CT examination was performed using dose optimization techniques as appropriate, variously including the following: *Automated exposure control *Adjustment of mA and/or kV according to patient size (this includes techniques or standardized protocols for targeted exams where dose is matched to indication/reason for exam; i.e. extremities or head) *Use of iterative reconstruction technique DLP: 134 mGy-cm FINDINGS: LUNGS: Right middle lobe 3 mm nodule (5:236), unchanged. No new or enlarging pulmonary nodule. Central airways are patent. Bilateral lower lobe patchy groundglass opacities have resolved when compared to prior study. PLEURA: No pleural effusion. MEDIASTINUM: Heart is unchanged in size. Aorta and pulmonary artery are normal in caliber. No mediastinal adenopathy. Lack of IV contrast with evaluation for hilar adenopathy. CORONARY ARTERY CALCIFICATION: Coronary artery calcification is present. CHEST WALL/AXILLA: No axillary or internal mammary lymphadenopathy. UPPER ABDOMEN: Nonobstructing left renal stone. OSSEOUS STRUCTURES: Degenerative changes of the thoracolumbar spine. CT/CT chest wo IV con IMPRESSION: Right middle lobe 3 mm nodule is unchanged. No new or enlarging pulmonary nodule. According to the UPDATED 2017 Fleischner Society recommendations, the advised followup imaging for solid nodules < 6 mm is: LOW RISK PATIENT: No routine follow up. HIGH RISK PATIENT: Optional CT at 12 months. * Bilateral lower lobe patchy groundglass opacities have resolved when compared to prior study.
== END 2024-04-22 13:47 | disposition home or self-care (01) ==
LOC: HO.CT 13:46
PROVIDERS: Visit Provider Internal Medicine Pulmonary Disease
DX: R91.8 Other nonspecific abnormal finding of lung field (principal)
CPT/HCPCS: 71250

== ENCOUNTER 2024-06-04 10:38 | Outpatient (REF) | payer OTHER, SELFPAY ==
--- NOTE | 2024-06-04 12:33 | PFT_ITS ---
Flows: FEV1: 94 % of predicted at 1.85 L FVC: 112 % of predicted at 2.89 L FEV1/FVC: 64 % Bronchodilator response: Absent Volumes: Total lung capacity: 84 % of predicted at 4.11 L Residual volume: 57 % of predicted at 1.23 L Slow vital capacity: 109 % of predicted at 2.89 L Expiratory reserve volume: 90 % of predicted at 0.59 L Diffusion capacity: Mild decrease, corrects to normal after adjustment for alveolar ventilation. Impression: Mild obstructive ventilatory defect with no bronchodilator response. MTDD
== END 2024-06-04 10:39 | disposition home or self-care (01) ==
LOC: HO.RESP 10:38
PROVIDERS: PCP Nurse Practitioner Acute Care; Visit Provider Internal Medicine Pulmonary Disease
DX: J45.909 Unspecified asthma, uncomplicated (principal)
CPT/HCPCS: 94010; 94640; 94727; 94729

== ENCOUNTER → 2024-06-04 12:33 | Outpatient (BNV) | payer OTHER, SELFPAY | PROVIDERS: PCP Nurse Practitioner Acute Care; Visit Provider Internal Medicine Pulmonary Disease | DX: J45.909 Unspecified asthma, uncomplicated (principal) | CPT/HCPCS: 94060; 94727; 94729 ==

== ENCOUNTER 2024-06-15 13:20 | Outpatient (AMB) | payer MEDICARE, MEDICAID, SELFPAY ==
[2024-06-15 13:22] VITALS: BP 104/62; PULSE 61; O2SAT 97; BMI 29.7
--- NOTE | 2024-06-15 13:22 | A.OFFVIS_ITS ---
Vital Signs 06/15/24 13:22 Height 5 ft 4 in Weight 173 lb 1.006 oz BMI 29.7 BP 104/62 Blood Pressure Location Rt brachial Position Sitting Pulse 61 Pulse Source Doppler Pulse Oximetry (%) 97 Oxygen Delivery Method Room Air Intake Visit Reasons: Pulmonary Nodule Carder Blankets Required: Yes Carder Blankets Name: Nenita Bajwa Becky Allergies No Known Allergies [No Known Allergies*] Allergy (Verified 03/18/24 14:52) HPI HPI Pulmonary Nodule: Details: 78-year-old lady, nonsmoker, with underlying history of asthma in childhood that resolved in her 20s and came back after patient moved from [place] to [facility] approximately 7 years prior. Patient also had CT chest that demonstrated pulmonary nodules. She denies prior family history of lung disease. Patient denies exposure to industrial dusts. She is currently using Trelegy and albu terol MDI with good control of her asthma symptoms. Patient also complains of multiple environmental allergies. After the last office visit patient completed hematologic testing that showed no significant min allergic component. She also has completed her pulmonary function test that showed mild obstruction, but does not explain her dyspnea on exertion. She also completed her CT chest that showed stable pulmonary nodules. Today she has complained of a cough productive of greenish sputum. [facility] Surgical History History of cataract surgery History of shoulder surgery History of toe surgery History of section History of knee replacement procedure of right knee Family History Father Alzheimers disease Mother Vaginal cancer Brother Stomach cancer Son Substance use disorder Sister Substance use disorder Social History Housing: Apartment Patient Tobacco Use Status: Never used Tobacco e-Cigarette/Vaping Use: Never Used Second Hand Smoke Exposure: No service: No Current occupational status: retired Current occupation: rt handed Review of Systems Const Denies daytime sleepiness, Denies excessive sweating, Denies fatigue, Denies fever(s), Denies lethargy, Denies malaise, Denies night sweats, Denies snoring and Denies weight loss Eyes Denies blurry vision and Denies itchy eyes ENT Denies nasal congestion, Denies post nasal drip, Denies sinus pain, Denies sinus pressure and Denies other ( Thrush) Card Denies chest pain, Denies pedal edema, Denies dyspnea, Denies orthopnea and Denies paroxysmal nocturnal dyspnea Resp Reports cough, Denies hemoptysis, Reports excessive phlegm production, Denies dyspnea, Denies snoring and Denies wheezing GI Denies abdominal pain and Denies heartburn Musc Denies myalgias, Denies arthralgias and Denies joint swelling Skin/Breast Denies rash Neuro Denies memory loss and Denies seizure-like activity Psych Denies abnormal sleep pattern, Denies anxiety and Denies memory loss Endo Denies excessive sweating, Denies fatigue and Denies heat intolerance Star/Lymph Denies easy bruising Aller/Immun Denies itchy eyes, Denies seasonal rhinorrhea and Denies wheezing Physical Exam Vital Signs: Last Vital Signs Pulse 61 06/15/24 13:22 BP 104/62 06/15/24 13:22 Pulse Ox 97 06/15/24 13:22 Oxygen Delivery Method Room Air 06/15/24 13:22 BMI result Body Mass Index 29.7 Const General: no acute distress and alert Nutritional Appearance: not obese Orientation/consciousness: Other orientation findings ( oriented) HEENT Head: Yes atraumatic Eyes General: appearance normal, both eyes and all related structures Sclerae: sclerae normal EOM: EOMs intact bilaterally Neck Neck: Yes supple Lymphatic: no lymphadenopathy noted Resp Effort & Inspection: normal respiratory effort and no use of accessory muscles Auscultation: clear to auscultation bilaterally Cardio Rate: regular rate Rhythm: regular rhythm Heart sounds: no gallops, no murmurs and no rubs Skin General skin exam: other ( warm) Extrem General: No clubbing, No cyanosis and No edema Assessment & Plan Assessment & Plan (1) Asthma: Code(s): J45.909 - Unspecified asthma, uncomplicated Category: Medical Plan: Well controlled on current regimen of Trelegy and albuterol MDI. Continue current regimen. Now with bronchitic exacerbation, will treat with a course of Levaquin and codeine syrup. (2) Pulmonary nodules: Code(s): R91.8 - Other nonspecific abnormal finding of lung field Category: Medical Plan: Results of CT chest reviewed, 3 mm nodule not requiring further follow-up. (3) Dyspnea on exertion: Code(s): R06.09 - Other forms of dyspnea Category: Medical Plan: Essentially negative pulmonary workup. Will obtain cardiopulmonary exercise test. Orders: Orders CA cardiopulmonary stress test Today R06.09 - Other forms of dyspnea Medications: New levofloxacin 500 mg PO DAILY 7 tabs 0RF Refilled codeine-guaifenesin 10-100 mg/5 mL 10 mL PO Q6H PRN 237 mL 0RF cough Coding Level of Care Code Est Pt Level 4 (65354) Diagnoses Asthma J45.909 Pulmonary nodules R91.8 Dyspnea on exertion R06.09
== END 2024-06-15 13:50 | disposition home or self-care (01) ==
PROVIDERS: PCP Nurse Practitioner Acute Care; Visit Provider Internal Medicine Pulmonary Disease
DX: J45.909 Unspecified asthma, uncomplicated (principal); R91.8 Other nonspecific abnormal finding of lung field; R06.09 Other forms of dyspnea
CPT/HCPCS: 99214

== ENCOUNTER → 2024-06-15 13:20 | Outpatient (BNVA) | payer MEDICARE, MEDICAID, SELFPAY | PROVIDERS: PCP Nurse Practitioner Acute Care; Visit Provider Internal Medicine Pulmonary Disease | DX: R91.8 Other nonspecific abnormal finding of lung field (principal); J45.909 Unspecified asthma, uncomplicated; R06.09 Other forms of dyspnea | CPT/HCPCS: 99212 ==

== ENCOUNTER 2024-08-15 11:10 | Outpatient (AMB) | payer MEDICARE, MEDICAID, SELFPAY ==
--- NOTE | 2024-08-15 11:11 | A.OFFVIS_ITS ---
Vital Signs 08/15/24 11:12 Height 5 ft 4 in Weight 174 lb BMI 29.9 BP 107/62 Blood Pressure Location Lt brachial Position Sitting Pulse 69 Pulse Source Doppler Pulse Oximetry (%) 98 Oxygen Delivery Method Room Air Intake Visit Reasons: Pulmonary Nodule Spaghetti Machine Operator Required: Yes Spaghetti Machine Operator Name: Nenita PerezDedeShashank Allergies No Known Allergies [No Known Allergies*] Allergy (Verified 08/15/24 11:18) HPI HPI Pulmonary Nodule: Details: 78-year-old lady, nonsmoker, with underlying history of asthma in childhood that resolved in her 20s and came back after patient moved from [place] to [facility] approximately 7 years prior. Patient also had CT chest that demonstrated pulmonary nodules that been stable on follow-up CT scan. She denies prior family history of lung disease. Patient denies exposure to industrial dusts. She continues to use Trelegy and albuterol MDI with good control of her asthma symptoms. Patient also complains of multiple environmental allergies. Patient has completed immunologic testing that showed no significant min allergic component. She also has completed her pulmonary function test that showed mild obstruction, but does not explain her dyspnea on exertion. Patient was scheduled to undergo cardiopulmonary exercise testing, however she was not able to get this test done yet. [facility] Surgical History History of cataract surgery History of shoulder surgery History of toe surgery History of section History of knee replacement procedure of right knee Family History Father Alzheimers disease Mother Vaginal cancer Brother Stomach cancer Son Substance use disorder Sister Substance use disorder Social History Housing: Apartment Patient Tobacco Use Status: Never used Tobacco e-Cigarette/Vaping Use: Never Used Second Hand Smoke Exposure: No service: No Current occupational status: retired Current occupation: rt handed Review of Systems Const Denies daytime sleepiness, Denies excessive sweating, Denies fatigue, Denies fever(s), Denies lethargy, Denies malaise, Denies night sweats, Denies snoring and Denies weight loss Eyes Denies blurry vision and Denies itchy eyes ENT Denies nasal congestion, Denies post nasal drip, Denies sinus pain, Denies sinus pressure and Denies other ( Thrush) Card Denies chest pain, Denies pedal edema, Denies dyspnea, Reports dyspnea on exertion, Denies orthopnea and Denies paroxysmal nocturnal dyspnea Resp Denies cough, Denies hemoptysis, Denies excessive phlegm production, Denies dyspnea, Reports dyspnea on exertion, Denies snoring and Denies wheezing GI Denies abdominal pain and Denies heartburn Musc Denies myalgias, Denies arthralgias and Denies joint swelling Skin/Breast Denies rash Neuro Denies memory loss and Denies seizure-like activity Psych Denies abnormal sleep pattern, Denies anxiety and Denies memory loss Endo Denies excessive sweating, Denies fatigue and Denies heat intolerance Star/Lymph Denies easy bruising Aller/Immun Denies itchy eyes, Denies seasonal rhinorrhea and Denies wheezing Physical Exam Vital Signs: Last Vital Signs Pulse 69 08/15/24 11:12 BP 107/62 08/15/24 11:12 Pulse Ox 98 08/15/24 11:12 Oxygen Delivery Method Room Air 08/15/24 11:12 BMI result Body Mass Index 29.9 Const General: no acute distress and alert Nutritional Appearance: not obese Orientation/consciousness: Other orientation findings ( oriented) HEENT Head: Yes atraumatic Eyes General: appearance normal, both eyes and all related structures Sclerae: sclerae normal EOM: EOMs intact bilaterally Neck Neck: Yes supple Lymphatic: no lymphadenopathy noted Resp Effort & Inspection: normal respiratory effort and no use of accessory muscles Auscultation: clear to auscultation bilaterally Cardio Rate: regular rate Rhythm: regular rhythm Heart sounds: no gallops, no murmurs and no rubs Skin General skin exam: other ( warm) Extrem General: No clubbing, No cyanosis and No edema Assessment & Plan Assessment & Plan (1) Asthma: Code(s): J45.909 - Unspecified asthma, uncomplicated Category: Medical Plan: Controlled on Trelegy and albuterol MDI. Continue current regimen. (2) Environmental allergies: Code(s): Z91.09 - Other allergy status, other than to drugs and biological substances Category: Medical Plan: Unclear etiology. Patient's insurance does not contract with [facility] for cardiopulmonary exercise testing. Pending insurance approval either of testing at [facility] or at another site. Coding Level of Care Code Est Pt Level 4 (19589) Diagnoses Asthma J45.909 Environmental allergies Z91.09
[2024-08-15 11:12] VITALS: BP 107/62; PULSE 69; O2SAT 98; BMI 29.9
== END 2024-08-15 11:30 | disposition home or self-care (01) ==
LOC: HO.HPS 11:11
PROVIDERS: PCP Nurse Practitioner Acute Care; Visit Provider Internal Medicine Pulmonary Disease
DX: J45.909 Unspecified asthma, uncomplicated (principal); Z91.09 Other allergy status, other than to drugs and biological substances
CPT/HCPCS: 99214

== ENCOUNTER → 2024-08-15 11:10 | Outpatient (BNVA) | payer MEDICARE, MEDICAID, SELFPAY | PROVIDERS: PCP Nurse Practitioner Acute Care; Visit Provider Internal Medicine Pulmonary Disease | DX: J45.909 Unspecified asthma, uncomplicated (principal); Z91.09 Other allergy status, other than to drugs and biological substances | CPT/HCPCS: 99212 ==

== ENCOUNTER 2024-09-26 11:24 | Outpatient (AMB) | payer MEDICARE, MEDICAID, SELFPAY ==
[2024-09-26 11:30] VITALS: BP 116/62; PULSE 73; O2SAT 97; BMI 29.0
--- NOTE | 2024-09-26 11:30 | MHC.OFFVIS ---
Vital Signs 09/26/24 11:30 Height 5 ft 4 in Weight 169 lb BMI 29.0 BP 116/62 Blood Pressure Location Rt brachial Position Sitting Pulse 73 Pulse Source Doppler Pulse Oximetry (%) 97 Oxygen Delivery Method Room Air Intake Visit Reasons: Pulmonary Nodule Latin Teacher Required: Yes Latin Teacher Name: Nenita Bajwa SunitaShashank Allergies No Known Allergies [No Known Allergies*] Allergy (Verified 09/26/24 11:34) HPI HPI Pulmonary Nodule: Details: 78-year-old lady, nonsmoker, with underlying history of asthma in childhood that resolved in her 20s and came back after patient moved from [place] to [facility] approximately 7 years prior. Patient also had CT chest that demonstrated pulmonary nodules that been stable on follow-up CT scan. She denies prior family history of lung disease. Patient denies exposure to industrial dusts. She continues to use Trelegy and albuterol MDI with good control of her asthma symptoms. Patient also complains of multiple environmental allergies. Patient has completed immunologic testing that showed no significant min allergic component. She also has completed her pulmonary function test that showed mild obstruction, but does not explain her dyspnea on exertion. Patient was scheduled to undergo cardiopulmonary exercise testing, however she was not able to get this test done yet. Today she does complain of cough productive of greenish sputum. [facility] Surgical History History of cataract surgery History of shoulder surgery History of toe surgery History of section History of knee replacement procedure of right knee Family History Father Alzheimers disease Mother Vaginal cancer Brother Stomach cancer Son Substance use disorder Sister Substance use disorder Social History Housing: Apartment Patient Tobacco Use Status: Never used Tobacco e-Cigarette/Vaping Use: Never Used Second Hand Smoke Exposure: No service: No Current occupational status: retired Current occupation: rt handed Review of Systems Const Denies daytime sleepiness, Denies excessive sweating, Denies fatigue, Denies fever(s), Denies lethargy, Denies malaise, Denies night sweats, Denies snoring and Denies weight loss Eyes Denies blurry vision and Denies itchy eyes ENT Denies nasal congestion, Denies post nasal drip, Denies sinus pain, Denies sinus pressure and Denies other ( Thrush) Card Denies chest pain, Denies pedal edema, Denies dyspnea, Reports dyspnea on exertion, Denies orthopnea and Denies paroxysmal nocturnal dyspnea Resp Reports cough, Denies hemoptysis, Reports excessive phlegm production, Denies dyspnea, Reports dyspnea on exertion, Denies snoring and Denies wheezing GI Denies abdominal pain and Denies heartburn Musc Denies myalgias, Denies arthralgias and Denies joint swelling Skin/Breast Denies rash Neuro Denies memory loss and Denies seizure-like activity Psych Denies abnormal sleep pattern, Denies anxiety and Denies memory loss Endo Denies excessive sweating, Denies fatigue and Denies heat intolerance Star/Lymph Denies easy bruising Aller/Immun Denies itchy eyes, Denies seasonal rhinorrhea and Denies wheezing Physical Exam Vital Signs: Last Vital Signs Pulse 73 09/26/24 11:30 BP 116/62 09/26/24 11:30 Pulse Ox 97 09/26/24 11:30 Oxygen Delivery Method Room Air 09/26/24 11:30 BMI result Body Mass Index 29.0 Const General: no acute distress and alert Nutritional Appearance: not obese Orientation/consciousness: Other orientation findings ( oriented) HEENT Head: Yes atraumatic Eyes General: appearance normal, both eyes and all related structures Sclerae: sclerae normal EOM: EOMs intact bilaterally Neck Neck: Yes supple Lymphatic: no lymphadenopathy noted Resp Effort & Inspection: normal respiratory effort and no use of accessory muscles Auscultation: clear to auscultation bilaterally Cardio Rate: regular rate Rhythm: regular rhythm Heart sounds: no gallops, no murmurs and no rubs Skin General skin exam: other ( warm) Extrem General: No clubbing, No cyanosis and No edema Assessment & Plan Assessment & Plan (1) Asthma: Code(s): J45.909 - Unspecified asthma, uncomplicated Category: Medical Plan: Well controlled on current regimen of Trelegy and albuterol MDI. Continue current regimen. Will treat bronchitic exacerbation with a course of azithromycin (2) Dyspnea on exertion: Code(s): R06.09 - Other forms of dyspnea Category: Medical Plan: Patient was unable to obtain cardiopulmonary stress test through [facility] system. will attempt to order at [facility]. Medications: New azithromycin For 250 mg dose pack: take 500 mg today (day 1), then 250 mg for 4 days (days 2-5) PO 6 tabs 0RF Discontinued levofloxacin Discontinued Reason: Doctor's Order 500 mg PO DAILY 7 tabs 0RF Coding Level of Care Code Est Pt Level 4 (29826) Complex EM visit Add On G2211 Diagnoses Asthma J45.909 Dyspnea on exertion R06.09
== END 2024-09-26 11:44 | disposition home or self-care (01) ==
PROVIDERS: PCP Nurse Practitioner Acute Care; Visit Provider Internal Medicine Pulmonary Disease
DX: J45.909 Unspecified asthma, uncomplicated (principal); R06.09 Other forms of dyspnea
CPT/HCPCS: 99214; G2211

== ENCOUNTER → 2024-09-26 11:24 | Outpatient (BNVA) | payer MEDICARE, MEDICAID, SELFPAY | PROVIDERS: PCP Nurse Practitioner Acute Care; Visit Provider Internal Medicine Pulmonary Disease | DX: J45.909 Unspecified asthma, uncomplicated (principal); R06.09 Other forms of dyspnea | CPT/HCPCS: 99212 ==

== ENCOUNTER 2025-01-03 14:30 | Outpatient (AMB) | payer OTHER, SELFPAY ==
--- NOTE | 2025-01-03 14:35 | MHC.OFFVIS ---
Intake Visit Reasons: [employer] Reestablish, Leg pain hx of vein procedures Intake Note: Patient presents for leg pain. Previous patient. She gets swelling, her legs fall asleep and she gets cramping as well. Accompanied by: Spouse Allergies No Known Allergies [No Known Allergies*] Allergy (Verified 01/03/25 14:37) HPI HPI [employer] Reestablish, Leg pain hx of vein procedures: Details: 79-year-old female patient presents for painful varicose veins. Complaints include pain over varicosities, swelling of lower extremities, cramping, fatigue, and heaviness of the lower extremities. It has been affecting there daily activities including walking. It is noted more so in right leg. Of note she had actually seen us back in 2019 and at that time was positive for reflux subsequently transferred her care to Dr. Brewster Patient left great saphenous vein ablation 01/25/2021 Patient denies any history of DVT/ PE. Patient denies any history of phlebitis. Trial of compression includes - [id number] They now present for vascular evaluation regarding their varicose veins. [facility] Surgical History History of cataract surgery History of shoulder surgery History of toe surgery History of section History of knee replacement procedure of right knee Family History Father Alzheimers disease Mother Vaginal cancer Brother Stomach cancer Son Substance use disorder Sister Substance use disorder Social History Housing: Apartment Patient Tobacco Use Status: Never used Tobacco e-Cigarette/Vaping Use: Never Used Second Hand Smoke Exposure: No service: No Current occupational status: retired Current occupation: rt handed Review of Systems Const Reports as per HPI ENT Reports no additional complaints Card Denies chest pain, Denies chest pain at rest and Denies chest pain with activity Resp Denies chest congestion and Denies cough GI Reports no additional complaints Musc Details: pain over varicosities, aching of lower extremities, swelling, cramping, heaviness and tiredness, itching Denies abnormal gait Skin/Breast Reports pruritus and Denies wounds Neuro Reports no additional complaints and Denies abnormal gait Psych Denies no additional complaints Physical Exam Const General: cooperative, healthy appearing and comfortable Orientation/consciousness: oriented to person, oriented to place and oriented to time Neck Carotids: no bruits Chest Chest palpation & inspection: normal inspection of the chest and normal palpation of entire chest wall Resp Effort & Inspection: normal respiratory effort and able to speak in complete sentences Cardio Rate: regular rate Heart sounds: S1 normal heart sound present and S2 normal heart sound present Peripheral pulses: Peripheral pulses 2+ throughout GI Inspection: Yes normal to inspection Skin Other: +2 edema, large rope-like varicosities greater than 4 mm CEAP Classification C4 - skin color changes Ep - Etiology Primary As - superficial veins P - reflux General skin exam: dry skin Neuro General: oriented to person, oriented to place and oriented to time Extrem Right lower extremity: full ROM, normal capillary refill and edema Left lower extremity: full ROM, normal capillary refill and edema Psych Mental Status: mental status grossly normal Assessment & Plan Assessment & Plan (1) Varicose veins of right lower extremity with inflammation: Code(s): I83.11 - Varicose veins of right lower extremity with inflammation Category: Medical Plan: In short, the patient has evidence of venous insufficiency. I have discussed the pathophysiology with the patient. In addition I have provided informational material regarding venous disease to the patient. We have discussed conservative measures including compression, elevation, and exercise. I have also provided a handout regarding appropriate use of compression stockings and where to purchase good compression stockings as well. I have taken the liberty of ordering venous insufficiency testing with the patient. They will follow up with me after testing. The patient had an opportunity to ask questions regarding the treatment plan. All questions were answered. Imaging studies, laboratory studies and physical exam results were discussed and reviewed in detail. No major barriers to understanding were identified. The patient expressed understanding and agreement with the above treatment plan. The patient is aware they should contact our office by phone for worsening of the current condition or the appearance of new symptoms. Thank you for allowing me to participate in the vascular care of this patient. If you have any questions or concerns regarding the treatment for the above condition please do not hesitate to contact me. The office telephone contact is [phone]. This note is constructed using voice recognition software. While every effort has been made to ensure accuracy, slot machine repairer errors may have been included. Thank you for allowing me to participate in the care of your patient. Yours sincerely, Nirav Ramirez MD, FACS, R.P.V.I. (2) Varicose veins of left lower extremity with inflammation: Comment: 01/25/2021-left great saphenous vein EVLT by Dr. Brewster Code(s): I83.12 - Varicose veins of left lower extremity with inflammation Category: Medical Plan: See above Orders: Orders US venous duplex LE BI 1 Week I83.11 - Varicose veins of right lower extremity with inflammation Coding Level of Care Code New Pt Level 4 (51459) Complex EM visit Add On G2211 Diagnoses Varicose veins of right lower extremity with inflammation I83.11 Varicose veins of left lower extremity with inflammation I83.12
--- OUTSIDE RECORDS SUMMARY | 2025-01-03 18:10 | XMS_ITS ---
Author Organization [facility] Address [address] [place] [address] Care Team Providers Care Eyelet Machine Operator Name Role Phone NEO ODOM Unavailable [phone] REASON FOR VISIT referral number Encounters Encounter Location Date Provider Diagnosis [id number] [address] 12/29/2024 [facility] PLAN OF TREATMENT No Information Progress Notes * Michael BEAROB: 1945 (79 yo F)Acc No.[id number]:12/29/2024 Patient:??Ford BEAR :1945?Age:79 Y?Sex:Fe male Address:[address] [place] [address] * * Date:??
--- OUTSIDE RECORDS SUMMARY | 2025-01-03 18:10 | XMS_ITS | Patient Health Record ---
Author Organization [facility] [employer] [facility] Address [address] [place] [address] Care Team Providers Care 3D Specialist Name Role Phone Jeana MOSES, Jt Primary Care Provider Thanh Patiño Unavailable [phone] Allergies No Known Allergies Reason For Referral No Information Medications Medication SIG (Take, Route, Frequency, Duration) Notes Start Date End Date Status LORazepam Active Lyrica 150 MG 1 capsule Orally Onc e a day Active Naproxen Active Orthopedic Extra Depth Shoes With Custom Heat Molded Multidensity Innersoles as directed Wear Daily for as needed 08/21/2022 Active PARoxetine HCl Activ e Social History Tobacco Use: Social History Observation Description Date Details (start date - stop date) Never Smoker NA - NA Tobacco Use/Smoking Question Answer Notes Are you a: nonsmoker Additional Findings: Tobacco Non-User Current no n-smoker Alcohol Screen Question Answer Notes Did you have a drink containing alcohol in the p ast year? No Points 0 Interpretation Negative Tobacco use other than smoking: Question Answer Notes Are you an other tobacco user? Yes Problems Problem Type SNOMED Code ICD Code Onset Dates Problem Status W/U Status Risk Notes Problem [id number] Fibromyalgia (M79.7) Active confirmed Problem Localized, primary osteoarthritis of the ankle and/or foot (601475149) Primary osteoarthritis, left ankle and foot (M19.072) Active confirmed Problem Localized, primary osteoarthritis of the ankle and/or foot (944818337) Primary osteoarthritis, right ankle and foot (M19.071) Active confirmed Problem Atherosclerosis of [place] arteries of the extremities (867694995062156) Atherosclerosis of [place] artery of both lower extremities, with unspecified presence of clinical manifestation (I70.203) Active confirmed Plan Of Treatment Pending Test Test Name Order Date X ray : Foot, left 3V 08/21/2022 X ray : Foot, right 3V 08/21/2022 Insurance Providers Payer Name Payer Address Payer Phone Subscriber Number Group Number Insured Name Patient Relationship to Insured Coverage Start Date Coverage End Date [facility] [address] [place] [phone] [id number] Ford Martínez Self - patient is the insured Medical (General) History Medical History History ICD Code Anxiety Arthritis Back,Hip,and Knee pain Broken bones Cataracts Depression Fibromyalgia Gall bladder problems Headaches/Migraines Osteoporosis Warts Mumps Joint implants/screws Bone implants/screws Surgical History Surgery Date(Month/Year) knee surgery, right foot surgery shoulder surgery section
--- OUTSIDE RECORDS SUMMARY | 2025-01-03 18:10 | XMS_ITS | Patient Health Record ---
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 Name Role Phone NEO ODOM Unavailable [phone] ALLERGIES No Known Allergies RESULTS Component Value Reference Range Notes CT Chest WO Reviewed date:01/14/2024 03:25:20 PM Interpretation: Performing Lab: Notes/Report: Original Ordering Provider: NEO ODOM NP [facility] CBC WITH AUTO DIFFERENTIAL Reviewed date:12/26/2024 03:02:41 PM Interpretation: Performing Lab: Notes/Report: WBC 4.9 4.8-10.8 K/mcL RBC 4.10 3.80-4.80 M/mcL Hemoglobin 13.3 11.5-16.0 g/dL Hematocrit 40.4 35.0-47.0 % MCV 97.6 79.0-98.0 FL MCH 32.1 27.0-32.0 pcg MCHC 32.9 32.0-37.0 g/dL RDW 13.9 11.0-15.0 % Platelets 202 130-400 K/mcL MPV 12.8 7.0-11.0 FL NRBC 0.0 <1.0 % NRBC Absolute 0.00 <0.10 K/mcL Neutrophils Relative 36.1 Lymphocytes Relative 39.1 Monocytes Relative 12.3 Eosinophils Relative 11.7 Basophils Relative 0.6 Immature Granulocytes Relative 0.2 Neutrophils Absolute 1.77 1.50-7.00 K/mcL Lymphocytes Absolute 1.91 1.00-5.00 K/mcL Monocytes Absolute 0.60 0.20-1.00 K/mcL Eosinophils Absolute 0.57 0.00-0.50 K/mcL Basophils Absolute 0.03 0.00-0.20 K/mcL Immature Granulocytes Absolute 0.01 0.00-0.03 K/mcL LIPID PANEL WITH REFLEX TO D IRECT LDL Reviewed date:12/26/2024 03:02:41 PM Interpretation: Performing Lab: Notes/Report: Cholesterol 181 0-200 mg/dL Triglycerides 109 0-150 mg/dL HDL 69 >=40 mg/dL LDL Calculated 90 0-100 mg/dL VLDL Cholesterol [place] 21.8 Non HDL Chol. (LDL+VLDL) 112 <145 mg/dL Chol/HDL Ratio 2.6 0.0-4.4 VITAMIN D 25 HYDROXY Reviewed date:12/26/2024 03:02:41 PM Interpretation: Performing Lab: Notes/Report: Vit D, 25-Hydroxy 39.7 30.0-80.0 ng/mL THYROID STIMULATING HORMONE Reviewed date:12/26/2024 03:02:41 PM Interpretation: Performing Lab: Notes/Report: TSH 1.91 0.40-4.00 mcIU/mL COMPREHENSIVE METABOLIC PANE L Reviewed date:12/26/2024 03:02:41 PM Interpretation: Performing Lab: Notes/Report: Sodium 141 133-145 mmol/L Potassium 4.2 3.5-5.5 mmol/L Chloride 109 96-110 mmol/L CO2 24 21-32 mmol/L Anion Gap 8 3-11 Glucose 82 70-100 mg/dL BUN 23 5-25 mg/dL Creatinine 0.87 0.50-1.10 mg/dL eGFR 68 >=60 mL/min/1.73m2 Calculati on based on the Chronic Kidney Disease Epidemiology Collaboration (CKD-EPI) equation refit without adjustment for race. BUN/Creatinine Ratio 26.4 Calcium 9.3 8.5-10.5 mg/dL AST (SGOT) 22 10-42 unit/L ALT (SGPT) 27 10-60 unit/L Alkaline Phosphatase 128 42-121 unit/L Total Protein 6.5 6.0-8.0 g/dL Albumin 3.8 3.2-5.0 g/dL Total Bilirubin 0.5 0.0-1.4 mg/dL HEMOGLOBIN A1C Reviewed date:12/26/2024 03:02:41 PM Interpretation: Performing Lab: Notes/Report: Hemoglobin A1C 5.4 <6.5 % Mean Bld Glu Estim. 108 VITAMIN B12 Reviewed date:12/26/2024 03:02:41 PM Interpretation: Performing Lab: Notes/Report: Vitamin B-12 704 250-900 pcg/mL REASON FOR REFERRAL Reason Pulmonary nodule Diagnosis 1 Lung nodule (R91.1) Referral Organization [facility] 119 Referring Provider First Name NEO Referring Provider Last Name [facility] Referring Provider Speciality Internal edicine Referred Provider Specialty Pulmonology General Notes fax number [phone], , [address] [place] [address] [place] [address] Clinical Notes Kalpana Hampton 02:12:18 PM >, Pt mom called stating that and no longer a pulmonary provider. [facility] pulmonology has availability, will send over referral to them as Pt is struggling currently with her breathing., Anupama Ma 02/12/2024 01:20:36 PM >, called for an update and they did receive the referral and will be reaching out to schedule, Pierre Alcaraz 03/10/2024 09:02:57 AM > Scheduled for March 17 at 2:45 pm. Referral Priority Urgent Diagnosis 1 Other chronic pain ( G89.29) Referral Organization [place] [address] Referring Provider First Name [facility] Referring Provider Last Name BORT Referring Provider Speciality Internal edicine Referred Provider Specialty Chiropractor General Notes faxed over referral with attachments to [facility] at fax - [phone], phone Clinical Notes Anupama Ma 03/25 12:27:17 PM >, faxed, Pierre Alcaraz 04/05/2024 02:31:01 PM > The patient was last seen on March 30, 2024 Referral Priority Routine Reason Pt needing a referra l for rheumatology for fibromyalgia Diagnosis 1 Fibromyalgia (M79.7) Referral Organization [place] [address] Referring Provider First Name [facility] Referring Provider Last Name [facility] Referring Provider Speciality Internal edicine Referred Provider Ana Taylor Referred Provider Specialty Rheumatology General Notes re-faxed to Dr. Prabhjot larose, [facility], phone- , [phone] Clinical Notes Anupama Ma 05/17 03:35:14 PM >, dr hart does not take pts with fibromyalgia , pt is romansh speaking only please call daughter at for translation. ( added to billing alert), Anil Anupama 05/31/2024 08:59:11 AM >, received the denial in faxes re-faxed to [facility], phone- [phone] , Ana Sofia MD, Pierre Alcaraz 06/15/2024 11:31:46 AM > I called the patient and informed her that she needed to register at the office first before they could set up an appointment for her. I provided the office's phone number, Anil Anupama 06/23/2024 02:08:44 PM >, pt called stating they never received the referral and asked us to fax referral to [phone], Anil Anupama 07/04/2024 01:59:55 PM >, called to f/u on referral that was sent it looks like they have her under [facility] and they registered her. , they only have one provider that does fibromyalgia so referral pending, Pierre Alcaraz 07/21/2024 11:31:02 AM > Scheduled for 01/04/2025 at 1 pm. Pt aware Referral Priority Routine Reason [facility] Diagnosis 1 Asymptomatic varicos e veins (I83.90) Referral Organization [place] [address] Referring Provider First Name NEO Referring Provider Last Name ILENE Referring Provider Speciality Internal M edicine Referred Provider Specialty Vascular Maegan john General Notes Jody Mackey 025 03:18:18 PM > Referral faxed to [facility] P. [phone] F. [phone] Referral Priority Routine MEDICATIONS Medication SIG (Take, Route, Frequency, Duration) Notes Start Date End Date Status Alendronate Sodium 70 MG TAKE 1 TABLET 3 0 MINUTES BEFORE THE FIRST FOOD, BEVERAGE OR MEDICINE OF THE DAY WITH PLAIN WATER ORALLY ONCE A WEEK for 28 Active PARoxetine HCl 10 MG 1 tablet in the mor breann Orally Once a day for 90 days 09/07/2023 Active Calcium 600 MG 1 tablet with meals Orally Twice a day Active LORazepam 0.5 MG 1 tablet at bedtime as needed Orally Once a day Active Nebulizer - as directed DISPENSE WITH supplies for 30 days 02/12/2024 Active Trelegy Ellipta 200-62.5-25 MCG/ACT INHALE 1 PUFF BY MOUTH EVERY DAY DIRECTED for 30 Active Ipratropium-Albuterol 0.5-2.5 (3) MG/3ML 3 mL as needed Inhalation every 6 hrs for 30 days 02/12/2024 Active Zinc 50 MG 1 tablet Orally Once a day Active Naproxen Sodium 550 MG TAKE 1 TABLET BY MOUTH EVERY 12 HOURS NEEDED WITH FOOD OR MILK 30 for 30 Active Vitamin D 25 MCG (1000 UT) 1 tablet Oral ly Once a day Active Lyrica 150 MG 1 capsule Orally Twi ce a day for 90 days 07/04/2024 Active IMMUNIZATIONS Vaccine Route Administration Date Status Comme nts Flu vaccine no Preserv 3 and > Unknown 09/26/2020 Administered Influenza, high dose seasonal Unknown 08/19/2019 Administered Influenza, high dose seasonal IM Intramuscular 09/07/2023 Administered Influenza, seasonal, injectable, 6-35 months Unknown 09/12/2021 Administered Moderna Covid-19 Vaccine Unknown 04/26/2021 Administere d Moderna Covid-19 Vaccine Unknown 05/24/2021 Administere d Moderna Covid-19 Vaccine Unknown 11/05/2021 Administere d Pneumococcal polysaccharide PPV23 Unknown 08/19/2019 Administered Tetanus toxoid, absorbed Unknown 08/19/2019 Administere d SOCIAL HISTORY Tobacco Use: Social History Observation Description Date Details (start date - stop date) Never Smoker NA - NA Sex Assigned At : Social History Observation Description Sex Assigned At Unknown Tobacco Use/Smoking Question Answer Notes Are you a nonsmoker Alcohol Screen (Audit-C) Question Answer Notes Did you have a drink containing alcohol in the p ast year? No Points 0 Interpretation Negative PROBLEMS Problem Type ICD Code Onset Dates Problem Status W/U Status Risk SNOMED Code Notes Problem Hyperlipidemia, unspecified (E78.5) Active confirmed Hyperlipidemia (70369287) Problem Other chronic pain (G89.29) Active confirmed 37950441 Problem Fibromyalgia (M79.7) Active confirmed Fibromyalgia (469007652) Problem Encounter for general adult medical examination without abnormal findings (Z00.00) Active confirmed 370830448 Problem Encounter for screening for diabetes mellitus (Z13.1) Active confirmed 347622148 Problem Encounter for screening for other suspected endocrine disorder (Z13.29) Active confirmed 647344042 Problem Neuropathy (G62.9) Active confirmed 675056598 Problem Lung nodule (R91.1) Active confirmed 797287907 Problem Anxiety (F41.9) Active confirmed 181320 02 Problem Vitamin D deficiency (E55.9) Active confirmed Vitamin D deficiency (02282701) Problem Diabetes mellitus screening (Z13.1) Active confirmed Diabetes mellit us screening (555071415) Problem Osteoporosis without current pathological fracture, unspecified osteoporosis type (M81.0) Active confirmed 94496199 Problem Mild episode of recurrent major depressive disorder (F33.0) Active confirmed 586478152 Problem Anemia due to vitamin B12 deficiency, unspecified B12 deficiency type (D51.9) Active confirmed Vitamin B>12< deficiency anaemia (13457959) Problem Encounter for screening for endocrine disorder (Z13.29) Active confirmed Endocrine/metab ol ic screening (932774980) Problem Lipid screening (Z13.220) Active confirmed Lipid screening (971057961) Problem Asymptomatic varicose veins (I83.90) Active confirmed Venous varices (172777737) Problem Asthmatic bronchitis , chronic (J44.89) Active confirmed 439565089 VITAL SIGNS Heart Rate 89 /min 12/21/2024 Oximetry 99 % 12/21/2024 Blood pressure diastolic 84 mm Hg 12/21/2024 Height 61 in 12/21/2024 Blood pressure systolic 132 mm Hg 12/21/2024 Weight 175 lbs 12/21/2024 BMI 33.06 kg/m2 12/21/2024 Encounters Encounter Location Date Provider Diagnosis [place] [address] [address] 03/10/2024 NEO BORHOT Fibromyalgia M79.7 ; Vitamin D deficiency E55.9 ; Hyperlipidemia, unspecified E78.5 ; Vitamin B 12 deficiency E53.8 ; Osteoporosis without current pathological fracture, unspecified osteoporosis type M81.0 and Anxiety F41.9 [place] [address] [address] 05/11/2024 NEO BORHOT Fibromyalgia M79.7 ; Hyperlipidemia, unspecified E78.5 ; Vitamin B 12 deficiency E53.8 ; Osteoporosis without current pathological fracture, unspecified osteoporosis type M81.[address] [place], [place] 07/04/2024 NEOMAURICE BARILLASGt Fibromyalgia M79.[address] [place], [place] 12/21/2024 NEO ODOM Encounter for annual health examination Z00.00 ; Encounter for screening for other disorder Z13.89 ; Encounter for screening for depression Z13.31 ; Advanced directives, counseling/discussion Z71.89 ; Fibromyalgia M79.7 ; Hyperlipidemia, unspecified E78.5 ; Osteoporosis without current pathological fracture, unspecified osteoporosis type M81.0 ; Anxiety F41.9 and Superficial varicosities I83.90 [address] [place], [place] 12/29/2024 NEO ODOM [address] [facility] [address] 01/04/2024 NEO ODOM Lung nodule R91.1 [address] [facility] [address] 02/10/2024 NEO ODOM Fibromyalgia M79.[address] [place] [address] 02/12/[address] [facility] [address] 02/15/2024 NEO [facility] [address] [place] [address] 03/10/2024 NEO [facility] [address] [place] [address] 03/16/[address] [place] [address] 03/25/2024 NEO BORH[place] [facility] [address] [place], [place] 03/28/[address] [place] [address] 05/17/2024 NEO BORHOT [facility] [address] [facility] [address] 05/18/[address] [place] [address] 05/24/2024 NEO BORHOT Fibromyalgia M79.[address] [place] [address] 05/30/[address] [place] [address] 05/31/2024 NEO BORHOT [address] [place] [address] 07/06/[address] [place] [address] 07/06/[address] [place] [address] 07/29/2024 NEO BORHOT Fibromyalgia M79.7 [address] [place] [address] 11/15/[address] [place] [address] 11/18/2024 NEO BORHOT [address] [place] [address] 12/23/2024 NEO BORHOT [address] [place] [address] 12/23/2024 NEOMAURICE BARILLAST ASSESSMENTS Encounter Date Diagnosis Assessment Notes Treatment Notes Treatment Clinical Notes Section Notes 01/04/2024 Lung nodule (ICD-10 - R91.1) 02/10/2024 Fibromyalgia (ICD-10 - M79.7) 03/10/2024 Fibromyalgia (ICD-10 - M79.7) Of note, some information is being carried forward from prior records for informational purposes only and is being cited so that efficiency, safety and quality of the patient's care is not compromised This note was prepared using voice recognition software and direct typing Please excuse inadvertent shoe laster or typing errors, or uncorrected word substitutions Although every attempt has been made by the provider to proofread this document, occasional misspellings and typographical errors may still be present Due to the previous pandemic, and the use of personal protective equipment (PPE) This may decrease voice recognition accuracy Inadvertent shoe laster errors may occur 03/10/2024 Vitamin D deficiency (ICD-10 - E55.9) Of note, some information is being carried forward from prior records for informational purposes only and is being cited so that efficiency, safety and quality of the patient's care is not compromised This note was prepared using voice recognition software and direct typing Please excuse inadvertent shoe laster or typing errors, or uncorrected word substitutions Although every attempt has been made by the provider to proofread this document, occasional misspellings and typographical errors may still be present Due to the previous pandemic, and the use of personal protective equipment (PPE) This may decrease voice recognition accuracy Inadvertent shoe laster errors may occur 05/11/2024 Hyperlipidemia, unspecified (ICD-10 - E78.5) Acute Concerns/Problem List: 05/11/2024 Chronic conditions are stable Letter of support provided Will see her back upon return from [place] for Medicare wellness visit and labs Of note, some information is being carried forward from prior records for informational purposes only and is being cited so that efficiency, safety and quality of the patient's care is not compromised This note was prepared using voice recognition software and direct typing Please excuse inadvertent shoe laster or typing errors, or uncorrected word substitutions Although every attempt has been made by the provider to proofread this document, occasional misspellings and typographical errors may still be present Due to the previous pandemic, and the use of personal protective equipment (PPE) This may decrease voice recognition accuracy Inadvertent shoe laster errors may occur 05/11/2024 Fibromyalgia (ICD-10 - M79.7) Acute Concerns/Problem List: 05/11/2024 Chronic conditions are stable Letter of support provided Will see her back upon return from [place] for Medicare wellness visit and labs Of note, some information is being carried forward from prior records for informational purposes only and is being cited so that efficiency, safety and quality of the patient's care is not compromised This note was prepared using voice recognition software and direct typing Please excuse inadvertent shoe laster or typing errors, or uncorrected word substitutions Although every attempt has been made by the provider to proofread this document, occasional misspellings and typographical errors may still be present Due to the previous pandemic, and the use of personal protective equipment (PPE) This may decrease voice recognition accuracy Inadvertent shoe laster errors may occur 05/24/2024 Fibromyalgia (ICD-10 - M79.7) 07/04/2024 Fibromyalgia (ICD-10 - M79.7) Refill Lyrica and naproxen Follow-up on rheumatology referral Of note, some information is being carried forward from prior records for informational purposes only and is being cited so that efficiency, safety and quality of the patient's care is not compromised This note was prepared using voice recognition software and direct typing Please excuse inadvertent shoe laster or typing errors, or uncorrected word substitutions Although every attempt has been made by the provider to proofread this document, occasional misspellings and typographical errors may still be present Due to the previous pandemic, and the use of personal protective equipment (PPE) This may decrease voice recognition accuracy Inadvertent shoe laster errors may occur 07/29/2024 Fibromyalgia (ICD-10 - M79.7) 12/21/2024 Encounter for screening for other disorder (ICD-10 - Z13.89) Acute Concerns/Problem List: 12/21/2024 To return healthcare proxy and MOLST forms Vascular consult/ varicose veins with [facility] _update labs Of note, some information is being carried forward from prior records for informational purposes only and is being cited so that efficiency, safety and quality of the patient's care is not compromised This note was prepared using voice recognition software and direct typing Please excuse inadvertent shoe laster or typing errors, or uncorrected word substitutions Although every attempt has been made by the provider to proofread this document, occasional misspellings and typographical errors may still be present Due to the previous pandemic, and the use of personal protective equipment (PPE) This may decrease voice recognition accuracy Inadvertent shoe laster errors may occur 12/21/2024 Encounter for annual health examination (ICD-10 - Z00.00) Acute Concerns/Problem List: 12/21/2024 To return healthcare proxy and MOLST forms Vascular consult/ varicose veins with [facility] _update labs Of note, some information is being carried forward from prior records for informational purposes only and is being cited so that efficiency, safety and quality of the patient's care is not compromised This note was prepared using voice recognition software and direct typing Please excuse inadvertent shoe laster or typing errors, or uncorrected word substitutions Although every attempt has been made by the provider to proofread this document, occasional misspellings and typographical errors may still be present Due to the previous pandemic, and the use of personal protective equipment (PPE) This may decrease voice recognition accuracy Inadvertent shoe laster errors may occur 12/21/2024 Encounter for screening for depression (ICD-10 - Z13.31) Acute Concerns/Problem List: 12/21/2024 To return healthcare proxy and MOLST forms Vascular consult/ varicose veins with [facility] _update labs Of note, some information is being carried forward from prior records for informational purposes only and is being cited so that efficiency, safety and quality of the patient's care is not compromised This note was prepared using voice recognition software and direct typing Please excuse inadvertent shoe laster or typing errors, or uncorrected word substitutions Although every attempt has been made by the provider to proofread this document, occasional misspellings and typographical errors may still be present Due to the previous pandemic, and the use of personal protective equipment (PPE) This may decrease voice recognition accuracy Inadvertent shoe laster errors may occur 05/11/2024 Vitamin B 12 deficiency (ICD-10 - E53.8) Acute Concerns/Problem List: 05/11/2024 Chronic conditions are stable Letter of support provided Will see her back upon return from [place] for Medicare wellness visit and labs Of note, some information is being carried forward from prior records for informational purposes only and is being cited so that efficiency, safety and quality of the patient's care is not compromised This note was prepared using voice recognition software and direct typing Please excuse inadvertent shoe laster or typing errors, or uncorrected word substitutions Although every attempt has been made by the provider to proofread this document, occasional misspellings and typographical errors may still be present Due to the previous pandemic, and the use of personal protective equipment (PPE) This may decrease voice recognition accuracy Inadvertent shoe laster errors may occur 03/10/2024 Hyperlipidemia, unspecified (ICD-10 - E78.5) Of note, some information is being carried forward from prior records for informational purposes only and is being cited so that efficiency, safety and quality of the patient's care is not compromised This note was prepared using voice recognition software and direct typing Please excuse inadvertent shoe laster or typing errors, or uncorrected word substitutions Although every attempt has been made by the provider to proofread this document, occasional misspellings and typographical errors may still be present Due to the previous pandemic, and the use of personal protective equipment (PPE) This may decrease voice recognition accuracy Inadvertent shoe laster errors may occur 03/10/2024 Vitamin B 12 deficiency (ICD-10 - E53.8) Of note, some information is being carried forward from prior records for informational purposes only and is being cited so that efficiency, safety and quality of the patient's care is not compromised This note was prepared using voice recognition software and direct typing Please excuse inadvertent shoe laster or typing errors, or uncorrected word substitutions Although every attempt has been made by the provider to proofread this document, occasional misspellings and typographical errors may still be present Due to the previous pandemic, and the use of personal protective equipment (PPE) This may decrease voice recognition accuracy Inadvertent shoe laster errors may occur 05/11/2024 Osteoporosis without current pathological fracture, unspecified osteoporosis type (ICD-10 - M81.0) Acute Concerns/Problem List: 05/11/2024 Chronic conditions are stable Letter of support provided Will see her back upon return from [place] for Medicare wellness visit and labs Of note, some information is being carried forward from prior records for informational purposes only and is being cited so that efficiency, safety and quality of the patient's care is not compromised This note was prepared using voice recognition software and direct typing Please excuse inadvertent shoe laster or typing errors, or uncorrected word substitutions Although every attempt has been made by the provider to proofread this document, occasional misspellings and typographical errors may still be present Due to the previous pandemic, and the use of personal protective equipment (PPE) This may decrease voice recognition accuracy Inadvertent shoe laster errors may occur 12/21/2024 Advanced directives, counseling/discu ssion (ICD-10 - Z71.89) Acute Concerns/Problem List: 12/21/2024 To return healthcare proxy and MOLST forms Vascular consult/ varicose veins with [facility] _update labs Of note, some information is being carried forward from prior records for informational purposes only and is being cited so that efficiency, safety and quality of the patient's care is not compromised This note was prepared using voice recognition software and direct typing Please excuse inadvertent shoe laster or typing errors, or uncorrected word substitutions Although every attempt has been made by the provider to proofread this document, occasional misspellings and typographical errors may still be present Due to the previous pandemic, and the use of personal protective equipment (PPE) This may decrease voice recognition accuracy Inadvertent shoe laster errors may occur 12/21/2024 Fibromyalgia (ICD-10 - M79.7) Acute Concerns/Problem List: 12/21/2024 To return healthcare proxy and MOLST forms Vascular consult/ varicose veins with [facility] _update labs Of note, some information is being carried forward from prior records for informational purposes only and is being cited so that efficiency, safety and quality of the patient's care is not compromised This note was prepared using voice recognition software and direct typing Please excuse inadvertent shoe laster or typing errors, or uncorrected word substitutions Although every attempt has been made by the provider to proofread this document, occasional misspellings and typographical errors may still be present Due to the previous pandemic, and the use of personal protective equipment (PPE) This may decrease voice recognition accuracy Inadvertent shoe laster errors may occur 03/10/2024 Osteoporosis without current pathological fracture, unspecified osteoporosis type (ICD-10 - M81.0) Of note, some information is being carried forward from prior records for informational purposes only and is being cited so that efficiency, safety and quality of the patient's care is not compromised This note was prepared using voice recognition software and direct typing Please excuse inadvertent shoe laster or typing errors, or uncorrected word substitutions Although every attempt has been made by the provider to proofread this document, occasional misspellings and typographical errors may still be present Due to the previous pandemic, and the use of personal protective equipment (PPE) This may decrease voice recognition accuracy Inadvertent shoe laster errors may occur 05/11/2024 Anxiety (ICD-10 - F41.9) Acute Concerns/Problem List: 05/11/2024 Chronic conditions are stable Letter of support provided Will see her back upon return from [place] for Medicare wellness visit and labs Of note, some information is being carried forward from prior records for informational purposes only and is being cited so that efficiency, safety and quality of the patient's care is not compromised This note was prepared using voice recognition software and direct typing Please excuse inadvertent shoe laster or typing errors, or uncorrected word substitutions Although every attempt has been made by the provider to proofread this document, occasional misspellings and typographical errors may still be present Due to the previous pandemic, and the use of personal protective equipment (PPE) This may decrease voice recognition accuracy Inadvertent shoe laster errors may occur 03/10/2024 Anxiety (ICD-10 - F41.9) Of note, some information is being carried forward from prior records for informational purposes only and is being cited so that efficiency, safety and quality of the patient's care is not compromised This note was prepared using voice recognition software and direct typing Please excuse inadvertent shoe laster or typing errors, or uncorrected word substitutions Although every attempt has been made by the provider to proofread this document, occasional misspellings and typographical errors may still be present Due to the previous pandemic, and the use of personal protective equipment (PPE) This may decrease voice recognition accuracy Inadvertent shoe laster errors may occur 12/21/2024 Hyperlipidemia, unspecified (ICD-10 - E78.5) Acute Concerns/Problem List: 12/21/2024 To return healthcare proxy and MOLST forms Vascular consult/ varicose veins with [facility] _update labs Of note, some information is being carried forward from prior records for informational purposes only and is being cited so that efficiency, safety and quality of the patient's care is not compromised This note was prepared using voice recognition software and direct typing Please excuse inadvertent shoe laster or typing errors, or uncorrected word substitutions Although every attempt has been made by the provider to proofread this document, occasional misspellings and typographical errors may still be present Due to the previous pandemic, and the use of personal protective equipment (PPE) This may decrease voice recognition accuracy Inadvertent shoe laster errors may occur 12/21/2024 Osteoporosis without current pathological fracture, unspecified osteoporosis type (ICD-10 - M81.0) Acute Concerns/Problem List: 12/21/2024 To return healthcare proxy and MOLST forms Vascular consult/ varicose veins with [facility] _update labs Of note, some information is being carried forward from prior records for informational purposes only and is being cited so that efficiency, safety and quality of the patient's care is not compromised This note was prepared using voice recognition software and direct typing Please excuse inadvertent shoe laster or typing errors, or uncorrected word substitutions Although every attempt has been made by the provider to proofread this document, occasional misspellings and typographical errors may still be present Due to the previous pandemic, and the use of personal protective equipment (PPE) This may decrease voice recognition accuracy Inadvertent shoe laster errors may occur 12/21/2024 Anxiety (ICD-10 - F41.9) Acute Concerns/Problem List: 12/21/2024 To return healthcare proxy and MOLST forms Vascular consult/ varicose veins with [facility] _update labs Of note, some information is being carried forward from prior records for informational purposes only and is being cited so that efficiency, safety and quality of the patient's care is not compromised This note was prepared using voice recognition software and direct typing Please excuse inadvertent shoe laster or typing errors, or uncorrected word substitutions Although every attempt has been made by the provider to proofread this document, occasional misspellings and typographical errors may still be present Due to the previous pandemic, and the use of personal protective equipment (PPE) This may decrease voice recognition accuracy Inadvertent shoe laster errors may occur 12/21/2024 Superficial varicosities (ICD-10 - I83.90) Acute Concerns/Problem List: 12/21/2024 To return healthcare proxy and MOLST forms Vascular consult/ varicose veins with [facility] _update labs Of note, some information is being carried forward from prior records for informational purposes only and is being cited so that efficiency, safety and quality of the patient's care is not compromised This note was prepared using voice recognition software and direct typing Please excuse inadvertent shoe laster or typing errors, or uncorrected word substitutions Although every attempt has been made by the provider to proofread this document, occasional misspellings and typographical errors may still be present Due to the previous pandemic, and the use of personal protective equipment (PPE) This may decrease voice recognition accuracy Inadvertent shoe laster errors may occur PLAN OF TREATMENT Pending Test Test Name Order Date TSH 12/21/2024 Lipid Panel 12/21/2024 Exercise Stress Nuclear Test 05/06/2023 COMPREHENSIVE METABOLIC PANEL 12/21/2024 HEMOGLOBIN A1C 12/21/2024 URINALYSIS W/REFLEX CULTURE 12/21/2024 Chest 2 Views Frontal and Lat 12/03/2023 Chest 2 Views Frontal and Lat 12/29/2023 CBC with Differential 12/21/2024 CT Chest w/o Contrast 01/04/2024 VITAMIN B12 12/21/2024 LIPID PANEL, STANDARD 05/11/2024 COMPREHENSIVE METABOLIC PANEL 05/11/2024 CBC (INCLUDES DIFF/PLT) 05/11/2024 URINALYSIS, COMPLETE 05/11/2024 HEMOGLOBIN A1c 05/11/2024 TSH 05/11/2024 VITAMIN D,25-OH,TOTAL,IA 05/11/2024 VITAMIN D,25-OH,TOTAL,IA 12/21/2024 Future Test Test Name Order Date 25OH VITAMIN D 01/09/2022 CBC (COMPLETE BLOOD COUNT) 01/09/2022 COMPREHENSIVE METABOLIC PANEL 01/09/2022 HEMOGLOBIN A1C 01/09/2022 LIPID PANEL 01/09/2022 TSH WITH REFLEX TO FT4 01/09/2022 COMPLETE URINALYSIS 01/09/2022 VITAMIN B12 06/23/2022 25OH VITAMIN D 05/01/2023 CBC (COMPLETE BLOOD COUNT) WITH DIFF COMPREHENSIVE METABOLIC PANEL 05/01/2023 HEMOGLOBIN A1C 05/01/2023 LIPID PANEL 05/01/2023 TSH WITH REFLEX TO FT4 05/01/2023 URINALYSIS W/REFLEX CULTURE 05/01/2023 VITAMIN B12 05/01/2023 Insurance Providers Payer Name Payer Address Payer Phone Subscriber Number Group Number Insured Name Patient Relationship to Insured Coverage Start Date Coverage End Date [facility] [address] [address] [place] [address] [id number] Rae Siddiqui Self - patient is the insured MEDICAL (GENERAL) HISTORY Medical History History ICD Code Arthritis headache anxiety depression fibromyalgia Surgical History Surgery Date(Month/Year) rotator cuff tear repair right Dr. Jose montoya 07/25/2017 right knee replacement 01/10/2016 phlebectomy 2020 index toe, right tubal ligation section x2 Colonoscopy in 2013
--- OUTSIDE RECORDS SUMMARY | 2025-01-03 18:10 | XMS_ITS ---
Author Organization [facility] Address [address] [place] [address] Care Team Providers Care Pastoral Worker Name Role Phone NEO ODOM Unavailable [phone] REASON FOR VISIT podiatry Encounters Encounter Location Date Provider Diagnosis [address] [address] 12/23/2024 NEO ODOM PLAN OF TREATMENT No Information Progress Notes * Michael BEAROB: 1945 (79 yo F)Acc No.[id number]:12/23/2024 Patient:??Ford BEAR :1945?Age:79 Y?Sex:Fe male Address:[address] [place] [address] * true * Date:??
--- OUTSIDE RECORDS SUMMARY | 2025-01-03 18:10 | XMS_ITS ---
Author Organization [facility] Address [address] [place] [address] Care Team Providers Care Pickling Grader Name Role Phone NEO ODOM Unavailable [phone] REASON FOR VISIT iNSURANCE REFERRAL Encounters Encounter Location Date Provider Diagnosis [address] [address] 12/23/2024 NEO ODOM PLAN OF TREATMENT No Information Progress Notes * Michael BEAROB: 1945 (79 yo F)Acc No.[id number]:12/23/2024 Patient:??Ford BEAR :1945?Age:79 Y?Sex:Fe male Address:[address] [place] [address] * true * Date:??
== END 2025-01-03 14:50 | disposition home or self-care (01) ==
LOC: HO.HVS 14:31
PROVIDERS: PCP Nurse Practitioner Acute Care; Visit Provider Surgery Vascular Surgery
DX: I83.11 Varicose veins of right lower extremity with inflammation (principal); I83.12 Varicose veins of left lower extremity with inflammation
CPT/HCPCS: 99204; G2211

== ENCOUNTER → 2025-01-03 14:30 | Outpatient (BNVA) | payer OTHER, SELFPAY | PROVIDERS: PCP Nurse Practitioner Acute Care; Visit Provider Surgery Vascular Surgery | DX: I83.11 Varicose veins of right lower extremity with inflammation (principal); I83.12 Varicose veins of left lower extremity with inflammation | CPT/HCPCS: 99202 ==

== ENCOUNTER 2025-01-26 09:48 | Outpatient (REF) | payer OTHER, SELFPAY ==
--- NOTE | ~2025-01-26 | US_ITS ---
EXAMINATION: US LOWER EXTREMITY VENOUS (REFLUX EXAM), BILATERAL CLINICAL INFORMATION: Varices. Status post left great saphenous vein ablation, January 25, 2021. COMPARISON: June 07, 2019. TECHNIQUE: Color flow triplex imaging and compression Doppler was performed to evaluate both the deep and the superficial systems bilaterally. To evaluate the superficial system, the examination was performed in the upright position. Color-flow Doppler ultrasound and compression ultrasound were utilized. In addition, maneuvers were utilized to demonstrate reflux. FINDINGS: 1. DEEP VENOUS ULTRASOUND OF THE RIGHT LOWER EXTREMITY: Common Femoral Vein: Compressible, normal respiratory variation and augmented flow. Femoral Vein: Compressible, normal color flow and augmentation. Popliteal Vein: Compressible, normal augmentation. Deep Reflux: There is no evidence of reflux in the deep system in either the common femoral vein, superficial femoral or the popliteal vein. There is no evidence of a Elliott's cyst. 2. SUPERFICIAL ULTRASOUND WITH DOPPLER OF RIGHT LOWER EXTREMITY: GREAT SAPHENOUS VEIN: Saphenofemoral Junction: 0.8 cm; Reflux: 0 ms Proximal Thigh: 0.2 cm; Reflux: 0 ms Mid Thigh: Not seen. Distal Thigh: Not seen. At Knee: Not seen. Proximal Calf: Not seen. Mid Calf: Not seen. Distal Calf: 0.3 cm; Reflux: more than 2372 ms DUPLICATED MEDIAL GREAT SAPHENOUS VEIN: Diameter: None imaged Reflux: NA DUPLICATED LATERAL GREAT SAPHENOUS VEIN: Diameter: None imaged Reflux: NA SMALL SAPHENOUS VEIN: Saphenopopliteal Junction: 0.2 cm; Reflux: 0 ms Proximal: 0.1 cm; Reflux: 0 ms Distal: 0.1 cm; Reflux: 0 ms VEIN OF GIACOMINI: Size: NA Reflux: NA PERFORATORS: Location: Small saphenous vein proximal and mid segment and great saphenous vein in the proximal thigh and through the catheter. Size: 0.2-0.4 cm. Reflux: NA VARICOSITIES: Location: Great saphenous vein, proximal calf and thigh. Small saphenous vein mid segment. Popliteal vein. Size: 0.3-0.5 cm. Reflux: more than 3020 ms. 3. DEEP VENOUS ULTRASOUND OF THE LEFT LOWER EXTREMITY: Common Femoral Vein: Compressible, normal respiratory variation and augmented flow. Femoral Vein: Compressible, normal color flow and augmentation. Popliteal Vein: Compressible, normal augmentation. Deep Reflux: There is no evidence of reflux in the deep system in either the common femoral vein, superficial femoral or the popliteal vein. Previously described popliteal cyst is not depicted on this exam. 4. SUPERFICIAL ULTRASOUND WITH DOPPLER OF LEFT LOWER EXTREMITY: GREAT SAPHENOUS VEIN: Saphenofemoral Junction: 0.7 cm; Reflux: 0 ms Proximal Thigh: 0.3 cm; Reflux: 0 ms Mid Thigh: 0.2 cm; Reflux: 0 ms Distal Thigh: Not seen. At Knee: Not seen. Proximal Calf: Not seen. Mid Calf: 0.2 cm; Reflux: 0 ms Distal Calf: 0.2 cm; Reflux: 0 ms DUPLICATED MEDIAL GREAT SAPHENOUS VEIN: Diameter: None imaged Reflux: NA DUPLICATED LATERAL GREAT SAPHENOUS VEIN: Diameter: None imaged. Reflux: NA SMALL SAPHENOUS VEIN: Saphenopopliteal Junction: 0.2 cm; Reflux: 0 ms Proximal: 0.3 cm; Reflux: 0 ms Distal: 0.2 cm; Reflux: 0 ms VEIN OF GIACOMINI: Size: NA Reflux: NA PERFORATORS: Location: Small saphenous vein proximal to mid segments. Great saphenous vein mid to distal calf. Size: 0.1-0.5 cm. Reflux: NA VARICOSITIES: Location: Small saphenous vein junctions segment Size: 0.4 cm. Reflux: NA US/US venous duplex LE BI IMPRESSION: Right: Venous insufficiency, great saphenous vein at the ankle. Varices in the great saphenous vein proximal calf with reflux. Multiple perforators without reflux. Left: No venous insufficiency. Varices in the small saphenous vein junction without reflux. Multiple perforators without reflux. Electronically signed by: Chaparro Peterson MD 01/26/2025 01:01 PM EDT
--- OUTSIDE RECORDS SUMMARY | 2025-01-26 11:20 | XMS_ITS | Clinical Summary ---
Author Organization [address] Address [address] [place] [address] Phone Care Team Providers Care Bell Spinner Name Role Phone Bertrand Briceno MD Primary Care Provider [phone] Allergies No known active allergies Medications clotrimazole-be tamethasone (LOTRISONE) 1-0.05 % cream Apply to area sparingly twice a day for up to two weeks 3 Active pregabalin (LYRICA) 150 mg capsule Take 1 Cap by mouth 2 times daily. 9 Active PARoxetine (PAXIL) 10 mg tablet Take 1 Tab by mouth daily. 9 Active naproxen sodium (ANAPROX) 550 mg tablet Take 1 Tab by mouth 2 times daily as needed for Pain. 9 Active ketotifen fumarate (ZADITOR) 0.035 % ophthalmic solution Instill 1 drop into the affected eye(s) twice daily every 8 to 12 hours 9 Active calcium citrate-vitamin D3 200 mg-6.25 mcg (250 unit) tablet Take 2 Tabs by mouth daily. Active folic acid (FOLVITE) 1 mg tablet Take 1 Tab by mouth daily. Active LORazepam (ATIVAN) 0.5 mg tablet Take 1 Tab by mouth at bedtime as needed for Insomnia. Active glycerin/min oil/polycarboph il (REPLENS VAGL) Place vaginally twice a week. Active senna-docusate (PERICOLACE) 8.6-50 mg per tablet Take 2 tablets by mouth at bedtime. Active loratadine (CLARITIN) 10 mg tablet Take 10 mg by mouth daily. Active polyethylene glycol (PEG) 17 gram/dose oral powder Take 17 g by mouth daily. Active Active Problems Problem Noted Date Diagnosed Date Postmenopausal bleeding 03/14/2022 Overview (10/07/2024): Last Assessment & Plan: I recommended US to evaluate endometrium. If normal no further testing unless she has another episode and she agrees to let me know. She will return for routine examine when available. No further Paps necessary as neg, neg HPV in 2019 and never had HPV testing with ASCUS Paps in [place]. Assessment & Plan (01/20/2025 10:04 AM EDT): I counseled the patient that PMB can be secondary to precancer or cancer. This can be evaluated by US and/or endometrial biopsy. I attempted EMB today, but could not grasp with tenaculum and had to use Rupinder. Could not get into stenotic os. I recommended repeat US. Since last US showed 1 mm ES, if still very thin, no need to proceed with hysteroscopy unless bleeding continues. But if thickened, will need hysteroscopy. Abnormal Pap smear of cervix 12/15/2018 Overview (10/07/2024): 06/25/18 ASCUS, 11/04/2012 ASCUS, normal 2018 neg, neg HPV Allergic rhinitis 10/27/2018 Anxiety 10/27/2018 Cataract 10/27/2018 Overview (10/07/2024): bilateral Depression 10/27/2018 Fibromyalgia 10/27/2018 Migraines 10/27/2018 Osteoarthritis 10/27/2018 Overview (10/07/2024): Shoulders, Left Knee Osteoporosis 10/27/2018 Varicose veins of lower extremity 10/27/2018 Overview (10/07/2024): Bilateral with pain Encounters Date Type Department Care Team Description 01/20/2025 9:00 AM EDT Office Visit Obstetrics and Gynecology [address] [address] Vania Pathak MD Postmenopausal bleeding (Primary Dx) from Last 3 Months Surgical History Surgery Date Site/Laterality Comments TOTAL KNEE ARTHROPLASTY 01/10/2016 Right PROCEDURE: HISTORICAL TOTAL KNEE REPLACE; COMMENT: in [place] SECTION PROCEDURE: HISTORICAL ; COMMENT: x2 ROTATOR CUFF REPAIR 07/15/2017 Left PROCEDURE: HISTORICAL ROTATOR CUFF REPAIR COLONOSCOPY 05/05/2012 PROCEDURE: HISTORICAL COLONOSCOPY; COMMENT: Performed in [place]. 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/27/2018 DX :Total knee replacement status; COMMENT: 2016 Right, in [place] Osteoarthritis 10/27/2018 DX:Osteoarthriti s; COMMENT: Shoulders, Left Knee Allergic rhinitis 10/27/2018 DX:Allergic rh initis Anxiety 10/27/2018 DX:Anxiety Cataract 10/27/2018 DX:Cataract; COM MENT: bilateral Migraines 10/27/2018 DX:Migraines Abnormal Pap smear of cervix 12/15/2018 DX: Abnormal Pap smear of cervix; COMMENT: 06/25/18 ASCUS, 11/04/2012 ASCUS Family History Medical History Relation Name Comments Drug abuse Daughter Other cancer Mother cervical cancer Breast cancer Other cousin Drug abuse Son Colon cancer Neg Hx Ovarian cancer Neg Hx Pancreatic cancer Neg Hx Prostate cancer Neg Hx Uterine cancer Neg Hx Relation Name Status Comments Daughter Father Mother Other cousin Alive Son Social History Tobacco Use Types Packs/Day Years Used Date Smoking Tobacco: Never Smokeless Tobacco: Never Alcohol Use Standard Drinks/Week Comments No 0 (1 standard drink = 0.6 oz pur e alcohol) Comments No Sex and Gender Information Value Date Recorded Sex Assigned at Not on file Legal Sex Female 11:13 PM EST Gender Identity Not on file Sexual Orientation Not on file Obstetrics History Para Term AB IAB SAB Ectopic Multiple Livin g Live Births 2 Date Outcome GA Total Labor Labor/2nd/3rd Weight Sex Type Anes PTL Melinda A1 A5 Name Clin Last Filed Vital Signs Vital Sign Reading Time Taken Comments Blood Pressure 115/74 01/20/2025 9:04 AM EDT Pulse 72 01/20/2025 9:04 AM EDT Temperature - - Respiratory Rate 16 01/20/2025 9:04 AM EDT Oxygen Saturation - - Inhaled Oxygen Concentration - - Weight 79.8 kg (176 lb) 01/20/2025 9:04 AM EDT Height 160 cm (5' 3 ) 01/20/2025 9:04 AM EDT Body Mass Index 31.18 01/20/2025 9:04 AM EDT Plan of Treatment Upcoming Encounters Date Type Department Care Team (Late st Contact Info) Description 01/31/2025 2:45 PM EDT Appointment Radiology Department - [address] [address] Health Maintenance Due Date Last Done Comments Zoster Vaccines (1 of 2) 1995 Cervical Cancer Screening: Pap Smear 08/09/2020 08/09/2019, 08/09/2019, 08/09/2019 Pneumococcal Vaccine: 50+ Years (2 of 2 - PCV) 08/19/2020 08/19/2019 RSV Immunization Adult Patients (1 - 1-dose 75+ series) 2020 Depression Screening 09/14/2022 Falls Risk Assessment 09/14/2022 Hepatitis C Screening 09/14/2022 Medicare Annual Wellness Visit 09/14/2022 Osteoporosis Screening (Bone Density Screening) 09/14/2022 Social Influencers of Health Screening 09/14/2022 COVID-19 Vaccine ( season) 2024 09/15/2022, 11/05/2021, 05/24/2021, Additional history exists Influenza Vaccine (Season Ended) 2025 09/07/2023, 09/12/2021, 09/26/2020, Additional history exists DTaP,Tdap,and Td Vaccines (2 - Td or Tdap) 08/19/2029 08/19/2019 Cholesterol Screening (Lipid Panel) 12/26/2029 12/26/2024, 01/11/2019 HIB Vaccines Aged Out No longer eligi ble based on patient's age to complete this topic HPV Vaccines Aged Out No longer eligi ble based on patient's age to complete this topic Hepatitis A Vaccines Aged Out No long er eligible based on patient's age to complete this topic Hepatitis B Vaccines Aged Out No long er eligible based on patient's age to complete this topic IPV Vaccines Aged Out No longer eligi ble based on patient's age to complete this topic MMR Vaccines Aged Out No longer eligi ble based on patient's age to complete this topic Meningococcal ACWY Vaccine Aged Out N o longer eligible based on patient's age to complete this topic Meningococcal B Vaccine Aged Out No l onger eligible based on patient's age to complete this topic RSV Immunization Patients Under 20 months Aged Out No longer eligible based on patient's age to complete this topic Varicella Vaccines Aged Out No longer eligible based on patient's age to complete this topic Procedures Procedure Name Priority Date/Time Associated Diagnosis Comments CBC WITH AUTO DIFFERENTIAL Routine 12/26/2024 9:28 AM EDT Vitamin B12 deficiency anemia Screening for diabetes mellitus Routine general medical examination at a health care facility Avitaminosis D Screening for thyroid disorder Screening for lipoid disorders THYROID STIMULATING HORMONE Routine 12/26/2024 9:28 AM EDT Vitamin B12 deficiency anemia Screening for diabetes mellitus Routine general medical examination at a health care facility Avitaminosis D Screening for thyroid disorder Screening for lipoid disorders Abnormal blood chemistry Hypolipidemia Other general symptoms and signs LIPID PANEL WITH REFLEX TO DIRECT LDL Routine 12/26/2024 9:28 AM EDT Vitamin B12 deficiency anemia Screening for diabetes mellitus Routine general medical examination at a health care facility Avitaminosis D Screening for thyroid disorder Screening for lipoid disorders Abnormal blood chemistry Hypolipidemia VITAMIN D 25 HYDROXY Routine 12/26/2024 9:28 AM EDT Vitamin B12 deficiency anemia Screening for diabetes mellitus Routine general medical examination at a health care facility Avitaminosis D Screening for thyroid disorder Screening for lipoid disorders CBC AND DIFFERENTIAL Routine 12/26/2024 9:28 AM EDT Vitamin B12 deficiency anemia Screening for diabetes mellitus Routine general medical examination at a health care facility Avitaminosis D Screening for thyroid disorder Screening for lipoid disorders COMPREHENSIVE METABOLIC PANEL Routine 12/26/2024 9:28 AM EDT Vitamin B12 deficiency anemia Screening for diabetes mellitus Routine general medical examination at a health care facility Avitaminosis D Screening for thyroid disorder Screening for lipoid disorders HEMOGLOBIN A1C Routine 12/26/2024 9:28 AM EDT Vitamin B12 deficiency anemia Screening for diabetes mellitus Routine general medical examination at a health care facility Avitaminosis D Screening for thyroid disorder Screening for lipoid disorders VITAMIN B12 Routine 12/26/2024 9:28 AM EDT Vitamin B12 deficiency anemia Screening for diabetes mellitus Routine general medical examination at a [facility] care facility Avitaminosis D Screening for thyroid disorder Screening for lipoid disorders PAP SMEAR Routine 08/09/2019 from Last 3 Months or Most Recently Relevant to Health Maintenance Results * Lipid panel with reflex to direct LDL (12/26/2024 9:28 AM EDT) Cholesterol 181 0 - 200 mg/dL LAB CHEMISTRY METHOD 12/26/2024 1:15 PM EDT [facility] Triglycerides 109 0 - 150 mg/dL LAB CHEMISTRY METHOD 12/26/2024 1:15 PM EDT [facility] HDL 69 >=40 mg/dL LAB CHEMISTRY METHOD 12/26/2024 1:15 PM EDT [facility] LDL Calculated 90 0 - 100 mg/dL LAB CHEMISTRY METHOD 12/26/2024 1:15 PM EDT [facility] VLDL Cholesterol [place] 21.8 mg/dL LAB CHEMISTRY METHOD 12/26/2024 1:15 PM EDT [facility] Non HDL Chol. (LDL+VLDL) 112 <145 mg/dL LAB CHEMISTRY METHOD 12/26/2024 1:15 PM EDT [facility] Chol/HDL Ratio 2.6 0.0 - 4.4 LAB CHEMISTRY METHOD 12/26/2024 1:15 PM EDT [facility] Blood Venous blood specimen / Unknown Venipuncture / Unknown 12/26/2024 9:28 AM EDT 12/26/2024 11:12 AM EDT us Jt Hills NP LAB BLOOD ORDERABLES Final Re sult [facility] [address] [place] [address], * (ABNORMAL) CBC auto differential (12/26/2024 9:28 AM EDT) [facility] Signature WBC 4.9 4.8 - 10.8 K/mcL LAB HEMETOLOGY METHOD 12/26/2024 11:46 AM EDT [facility] RBC 4.10 3.80 - 4.80 M/mcL LAB HEMETOLOGY METHOD 12/26/2024 11:46 AM EDT [facility] Hemoglobin 13.3 11.5 - 16.0 g/dL LAB HEMETOLOGY METHOD 12/26/2024 11:46 AM EDT [facility] Hematocrit 40.4 35.0 - 47.0 % LAB HEMETOLOGY METHOD 12/26/2024 11:46 AM EDT [facility] MCV 97.6 79.0 - 98.0 FL LAB HEMETOLOGY METHOD 12/26/2024 11:46 AM EDT [facility] MCH 32.1(H) 27.0 - 32.0 pcg LAB HEMETOLOGY METHOD [facility] MCHC 32.9 32.0 - 37.0 g/dL LAB HEMETOLOGY METHOD 12/26/2024 11:46 AM EDT [facility] RDW 13.9 11.0 - 15.0 % LAB HEMETOLOGY METHOD 12/26/2024 11:46 AM EDT [facility] Platelets 202 130 - 400 K/mcL LAB HEMETOLOGY METHOD 12/26/2024 11:46 AM EDT [facility] MPV 12.8(H) 7.0 - 11.0 FL LAB HEMETOLOGY METHOD 12/26/2024 11:46 AM EDT [facility] NRBC 0.0 <1.0 % LAB HEMETOLOGY METHOD 12/26/2024 11:46 AM [facility] NRBC Absolute 0.00 <0.10 K/mcL LAB HEMETOLOGY METHOD 12/26/2024 11:46 AM [facility] Neutrophils Relative 36.1 % LAB HEMETOLOGY METHOD 12/26/2024 11:46 AM [facility] Lymphocytes Relative 39.1 % LAB HEMETOLOGY METHOD 12/26/2024 11:46 AM [facility] Monocytes Relative 12.3 % LAB HEMETOLOGY METHOD 12/26/2024 11:46 AM [facility] Eosinophils Relative 11.7 % LAB HEMETOLOGY METHOD 12/26/2024 11:46 AM [facility] Basophils Relative 0.6 % LAB HEMETOLOGY METHOD 12/26/2024 11:46 AM [facility] Immature Granulocytes Relative 0.2 % LAB HEMETOLOGY METHOD 12/26/2024 11:46 AM [facility] Neutrophils Absolute 1.77 1.50 - 7.00 K/mcL LAB HEMETOLOGY METHOD 12/26/2024 11:46 AM [facility] Lymphocytes Absolute 1.91 1.00 - 5.00 K/mcL LAB HEMETOLOGY METHOD 12/26/2024 11:46 AM [facility] Monocytes Absolute 0.60 0.20 - 1.00 K/mcL LAB HEMETOLOGY METHOD 12/26/2024 11:46 AM [facility] Eosinophils Absolute 0.57(H) 0.00 - 0.50 K/mcL LAB HEMETOLOGY METHOD 12/26/2024 11:46 AM [facility] Basophils Absolute 0.03 0.00 - 0.20 K/mcL LAB HEMETOLOGY METHOD 12/26/2024 11:46 AM EDT [facility] Immature Granulocytes Absolute 0.01 0.00 - 0.03 K/mcL LAB HEMETOLOGY METHOD 12/26/2024 11:46 AM EDT [facility] Blood Venous blood specimen / Unknown Venipuncture / Unknown 12/26/2024 9:28 AM EDT 12/26/2024 11:16 AM EDT Jt Hills COST ENGINEER LAB BLOOD ORDERABLES Final Re sult Performing Organization Address [facility] [place]/ZIP Co de Phone Number [facility] [address] [place] [address], [place] [phone] * Vitamin D 25 hydroxy (12/26/2024 9:28 AM EDT) Vit D, 25-Hydroxy 39.7 30.0 - 80.0 ng/mL LAB CHEMISTRY METHOD 12/26/2024 12:03 PM EDT [facility] Blood Venous blood specimen / Unknown Venipuncture / Unknown 12/26/2024 9:28 AM EDT 12/26/2024 11:12 AM EDT Jt Hills COST ENGINEER LAB BLOOD ORDERABLES Final Re sult Performing Organization Address City/[facility] [place]/ZIP Co de Phone Number [facility] [address] [place] [address], [place] [phone] * Thyroid stimulating hormone (12/26/2024 9:28 AM EDT) TSH 1.91 0.40 - 4.00 mcIU/mL LAB CHEMISTRY METHOD 12/26/2024 12:03 PM EDT [facility] Blood Venous blood specimen / Unknown Venipuncture / Unknown 12/26/2024 9:28 AM EDT 12/26/2024 11:12 AM EDT Jt Hills COST ENGINEER LAB BLOOD ORDERABLES Final Re sult [facility] [address] [place] [address], [place] [phone] * Hemoglobin A1c (12/26/2024 9:28 AM EDT) [facility] Hemoglobin A1C 5.4 <6.5 % LAB CHEMISTRY METHOD 12/26/2024 2:12 PM EDT [facility] Mean Bld Glu Estim. 108 mg/dL LAB CHEMISTRY METHOD 12/26/2024 2:12 PM EDT [facility] Blood Venous blood specimen / Unknown Venipuncture / Unknown 12/26/2024 9:28 AM EDT 12/26/2024 11:16 AM EDT Jt Hills COST ENGINEER LAB BLOOD ORDERABLES Final Re sult Performing Organization Address [facility] [place]/ZIP Co de Phone Number [facility] [address] [place] [address], [place] [phone] * Vitamin B12 (12/26/2024 9:28 AM EDT) [facility] Vitamin B-12 704 250 - 900 pcg/mL LAB CHEMISTRY METHOD 12/26/2024 1:15 PM EDT [facility] Blood Venous blood specimen / Unknown Venipuncture / Unknown 12/26/2024 9:28 AM EDT 12/26/2024 11:12 AM EDT us Jt Hills COST ENGINEER LAB BLOOD ORDERABLES Final Re sult Performing Organization Address City/[facility] [place]/ZIP Co de Phone Number [facility] [address] [place] [address], [place] [phone] * (ABNORMAL) Comprehensive metabolic panel (12/26/2024 9:28 AM EDT) Sodium 141 133 - 145 mmol/L LAB CHEMISTRY METHOD 12/26/2024 1:15 PM [facility] Potassium 4.2 3.5 - 5.5 mmol/L LAB CHEMISTRY METHOD 12/26/2024 1:15 PM [facility] Chloride 109 96 - 110 mmol/L LAB CHEMISTRY METHOD 12/26/2024 1:15 PM [facility] CO2 24 21 - 32 mmol/L LAB CHEMISTRY METHOD 12/26/2024 1:15 PM [facility] Anion Gap 8 3 - 11 LAB CHEMISTRY METHOD 12/26/2024 1:15 PM [facility] Glucose 82 70 - 100 mg/dL LAB CHEMISTRY METHOD 12/26/2024 1:15 PM [facility] BUN 23 5 - 25 mg/dL LAB CHEMISTRY METHOD 12/26/2024 1:15 PM [facility] Creatinine 0.87 0.50 - 1.10 mg/dL LAB CHEMISTRY METHOD 12/26/2024 1:15 PM [facility] eGFR 68 >=60 mL/min/1. 73m2 LAB CHEMISTRY METHOD 12/26/2024 1:15 PM [facility] Comment:Calculation based on the??Chronic Kidney Disease Epidemiology Collaboration (CKD-EPI) equation refit??without adjustment for race. BUN/Creatinine Ratio 26.4 LAB CHEMISTRY METHOD 12/26/2024 1:15 PM [facility] Calcium 9.3 8.5 - 10.5 mg/dL LAB CHEMISTRY METHOD 12/26/2024 1:15 PM [facility] AST (SGOT) 22 10 - 42 unit/L LAB CHEMISTRY METHOD 12/26/2024 1:15 PM [facility] ALT (SGPT) 27 10 - 60 unit/L LAB CHEMISTRY METHOD 12/26/2024 1:15 PM [facility] Alkaline Phosphatase 128(H) 42 - 121 unit/L LAB CHEMISTRY METHOD 12/26/2024 1:15 PM EDT [facility] Total Protein 6.5 6.0 - 8.0 g/dL LAB CHEMISTRY METHOD 12/26/2024 1:15 PM EDT [facility] Albumin 3.8 3.2 - 5.0 g/dL LAB CHEMISTRY METHOD 12/26/2024 1:15 PM EDT [facility] Total Bilirubin 0.5 0.0 - 1.4 mg/dL LAB CHEMISTRY METHOD 12/26/2024 1:15 PM EDT [facility] Blood Venous blood specimen / Unknown Venipuncture / Unknown 12/26/2024 9:28 AM EDT 12/26/2024 11:12 AM EDT us Jt Hills COST ENGINEER LAB BLOOD ORDERABLES Final Re sult [facility] [address] [place] [address], [place] [phone] * Pap smear (08/09/2019) 08/09/2019 Narrative HISTORICAL TESTING LAB RESULTING AGENCY - 08/12/2019 2:16 PM EDT [id number] THINPREP PAP, IMAGED: NEGATIVE FOR SQUAMOUS INTRAEPITHELIAL LESION AND MALIGNANCY . ATROPHY WITH INFLAMMATION IS PRESENT. LAVERNE DURANT(ASCP) (CASE ELECTRONICALLY SIGNED 08 12 2019) RESULT OF APTIMA HIGH RISK HPV ASSAY: HIGH RISK HPV: ??NEGATIVE (SEROTYPES 16,18,31,33,35,39,45,51,52,56,58,59,66,68) COMPLETED ON 2019-08-11 ADEQUACY: SATISFACTORY ENDOCERVICAL/TRANSFORMATION ZONE COMPONENT PRESENT. SOURCE: THINPREP PAP HPV ANY DX: ??REFLEX 16 AND 18, CERVICAL, IMAGED CLINICAL INFORMATION: HPV ANY DIAGNOSIS. POS ASCUS 2012 AND 2018, UNKNOWN HPV, DONE IN [place], Z12.4 us Vania Pathak MD LAB CYTOLOGY ORDERABLES Fin al Result HISTORICAL TESTING LAB RESULTING AGENCY from Last 3 Months or Most Recently Relevant to Health Maintenance Insurance [employer] Care Teams Bell Spinner Relationship Specialty Start Date End Date Bertrand Briceno MD [address] [place] [address] [phone] PCP - General Internal Medicine 01/09/25
--- OUTSIDE RECORDS SUMMARY | 2025-01-26 11:21 | XMS_ITS ---
Author Organization [facility] Address [address] [place] [address] Care Team Providers Care Strategic Partnership Manager Name Role Phone NEO ODOM Unavailable [phone] REASON FOR VISIT Ins referral - gyne Encounters Encounter Location Date Provider Diagnosis [address] [address] 01/09/2025 NEO ODOM PLAN OF TREATMENT No Information Progress Notes * Michael BEAROB: 1945 (79 yo F)Acc No.[id number]:01/09/2025 Patient:??Ford BEAR :1945?Age:79 Y?Sex:Fe male Address:[address] [place] [address] * true * Date:??
--- OUTSIDE RECORDS SUMMARY | 2025-01-26 11:21 | XMS_ITS | Continuity of Care Document ---
Author Organization [facility] Address [address] [place] [address] Phone Care Team Providers Care Intake Clinician Name Role Phone Rubi VALIENTE, Matt Unavailable Unavailable Advance Directives Directive Yes / No Effective Date File Name No Information Encounters Encounter Description Practice Location Reason(s) For Visit Diagnoses Date Provider Providers Copied on Encounter [facility], [address], [place], [id number], [place] tel:[phone] [place] [facility] No Information Rubi Gutierrez. [address], [address], [place], [address], [place]. tel:[phone] Referring Provider: Jt Hills NP, [address] [facility], [place], [address]. tel:[phone] Family History Family Member Type Diagnosis Age At Onset No Information Payers Payer name Insurance type Covered alliance party ID Authoriza tion(s) No Information Social History Type Description Quantity Date Captured Comments Sex Female Smoking Status No Information Chief Complaint And Reason For Visit No Information Reason For Referral Reason For Referral No Information History Of Present Illness Encounter Date Complaint History Of Prese nt Illness No Information Functional Status Date Functional Assessmen t No Information Instructions Date Instruction Additional Infor mation No Information Assessments Type Assessment Date No Information Patient Care Teams Name Effective Dates (start - stop) Status Members No Information
--- OUTSIDE RECORDS SUMMARY | 2025-01-26 11:21 | XMS_ITS ---
Author Organization [facility] Address [address] [place] [address] Care Team Providers Care Ground Crewman Name Role Phone NEO ODOM Unavailable [phone] REASON FOR VISIT Refill - Lyrica MEDICATIONS Medication SIG (Take, Route, Frequency, Duration) Notes Start Date End Date Status Lyrica 150 MG 1 capsule Orally Twi ce a day for 90 days 01/19/2025 Active Encounters Encounter Location Date Provider Diagnosis [facility] [address] [place] [phone] 01/19/2025 NEO ILENE Fibromyalgia M79.7 ASSESSMENTS Encounter Date Diagnosis Assessment Notes Treatment Notes Treatment Clinical Notes Section Notes 01/19/2025 Fibromyalgia (ICD-10 - M79.7) PLAN OF TREATMENT Medication Medication Name Sig Start Date Stop Date Notes Lyrica 150 MG 1 capsule Orally Twice a day for 90 days 07/2025 Progress Notes * Michael BEAROB: 1945 (79 yo F)Acc No.[id number]:01/19/2025 Patient:??Ford BEAR :1945?Age:79 Y?Sex:Fe male Address:[address] [place] [address] * Refills?? Refill Lyrica Capsule, 150 MG, Orally, 180 Capsule, 1 capsule, Twice a day, 90 days, Refills=3 * true * Date:??
== END 2025-01-26 09:49 | disposition home or self-care (01) ==
LOC: HO.US 09:48
PROVIDERS: PCP Nurse Practitioner Acute Care; Visit Provider Surgery Vascular Surgery
DX: I83.11 Varicose veins of right lower extremity with inflammation (principal)
CPT/HCPCS: 93970

== ENCOUNTER → 2025-01-26 09:51 | Outpatient (BNV) | payer OTHER, SELFPAY | PROVIDERS: PCP Nurse Practitioner Acute Care; Visit Provider Radiology Diagnostic Radiology | DX: I83.012 Varicose veins of right lower extremity with ulcer of calf (principal); I83.013 Varicose veins of right lower extremity with ulcer of ankle | CPT/HCPCS: 93970 ==

== ENCOUNTER 2025-02-14 13:35 | Outpatient (AMB) | payer OTHER, SELFPAY ==
--- NOTE | 2025-02-14 13:38 | MHC.OFFVIS ---
Intake Visit Reasons: Follow Up US Intake Note: Patient presents for follow up US. States she has pain in both legs along with swelling and numbness. Accompanied by: Spouse Allergies No Known Allergies [No Known Allergies*] Allergy (Verified 02/14/25 13:41) [facility] HPI Follow Up US: Details: The patient is a 79-year-old female presenting with a follow-up for venous insufficiency. She has a history of venous insufficiency for which she underwent procedures in [address] Brewster. A recent ultrasound of both legs was performed, and the findings revealed normal results. This indicates that the treatment performed in 2019 was effective, and there is no evidence of ongoing venous insufficiency or complications. The condition appears to have resolved favorably, and no additional interventions are necessary at this point. [facility] Surgical History History of cataract surgery History of shoulder surgery History of toe surgery History of section History of knee replacement procedure of right knee Family History Father Alzheimers disease Mother Vaginal cancer Brother Stomach cancer Son Substance use disorder Sister Substance use disorder Social History Housing: Apartment Patient Tobacco Use Status: Never used Tobacco e-Cigarette/Vaping Use: Never Used Second Hand Smoke Exposure: No service: No Current occupational status: retired Current occupation: rt handed Review of Systems Const All systems reviewed & are unremarkable except as noted in HPI and below Reports no additional complaints ENT Reports Normal hearing present Card Denies chest pain, Denies chest pain at rest, Denies chest pain with activity and Denies pedal edema Resp Denies cough GI Denies abdominal pain Musc Denies abnormal gait, Denies muscle cramps and Denies radiating pain into limb Skin/Breast Denies skin ulcer and Denies wounds Neuro Reports Normal hearing present and Denies abnormal gait Psych Reports no additional complaints Physical Exam Const General: cooperative, healthy appearing and comfortable Orientation/consciousness: oriented to person, oriented to place and oriented to time HEENT Head: Yes normal to inspection Neck Neck: Yes normal visual inspection Carotids: no bruits Chest Chest palpation & inspection: normal inspection of the chest Resp Effort & Inspection: normal respiratory effort and able to speak in complete sentences Auscultation: clear to auscultation bilaterally, no crackles, no rales, no rhonchi and no wheezes Cardio Rate: regular rate Rhythm: regular rhythm Heart sounds: S1 normal heart sound present and S2 normal heart sound present Bruits: no carotid bruits Peripheral pulses: Peripheral pulses 2+ throughout GI Inspection: Yes normal to inspection Skin Wounds: no wounds Hair: normal Neuro General: oriented to person, oriented to place and oriented to time Cranial nerves: Yes CN's II-XII intact bilaterally and Yes Normal hearing present Cognition (Neuro): normal cognition Motor exam (neuro): 5/5 motor strength present throughout Extrem Other: venous exam: No significant superficial varicosities or spider telangiectasias, minimal edema General: No clubbing, No cyanosis and No edema Psych Appearance: grossly normal Mental Status: mental status grossly normal Speech and movement: Normal speech and movement present Results Reviewed Results Reviewed: Brief summary of venous insufficiency testing is as follows: right great saphenous vein: negative right small saphenous vein: negative right accessory vein: none present left great saphenous vein: negative left small saphenous vein: negative left accessory vein: none present Please note there is no evidence of any venous aneurysms or significant tortuosity Assessment & Plan Assessment & Plan (1) Varicose veins of left lower extremity with inflammation: Comment: 01/25/2021-left great saphenous vein EVLT by Dr. Brewster Code(s): I83.12 - Varicose veins of left lower extremity with inflammation Category: Medical Plan: In short patient is negative for any significant venous insufficiency. We did discuss routine conservative measures including compression elevation and exercise. She will follow up with us on an as-needed basis. Thank you for allowing us to assist in her care. Coding Level of Care Code Est Pt Level 4 (74554) Diagnoses Varicose veins of left lower extremity with inflammation I83.12
--- OUTSIDE RECORDS SUMMARY | 2025-02-14 14:55 | XMS_ITS | Encounter Summary ---
Author Organization [facility] Address [address] [place] [address] Care Team Providers Care Scallop Shucker Name Role Phone Bertrand Briceno Primary Care Provider Reason for Visit * Reason Onset Date Comments PAC Patient Request Call Back 12/09/2024 Encounter Details Date Type Department Care Team (Late st Contact Info) Description 12/09/2024 Telephone [facility] Patient Access Center [address] [place] [id number] Telephone Intake, Staff PAC Patient Request Call Back Social History Tobacco Use Types Packs/Day Years Used Date Smoking Tobacco: Never Assessed Comments Unknown Sex and Gender Information Value Date Recorded Sex Assigned at Female 11/04/2024 12:03 PM EST Legal Sex Female 12:29 PM EST Gender Identity Female 11/04/2024 12:03 PM EST Sexual Orientation Not on file documented as of this encounter Miscellaneous Notes * Telephone Encounter - Brenda Crews - 12/16/2024 11:37 AM EST Torri calling to follow up on this request She can be rebethjedolores @ [phone] Thank you PAC * Telephone Encounter - Rosa Caldera - 12/09/2024 1:35 PM EST Pt's granddaughter Torri calling in to return a call to clinic Please call [phone] Thank you, PAC * Telephone Encounter - Shanelle Smith - 12/09/2024 1:16 PM EST Patient's daughter Torri calling to reschedule patient's test that was cancelled today. Please reschedule the exercise room procedure for 120 minutes which was scheduled for 12/09/24. Patient of Dr. Montoya's. Thank you - PAC documented in this encounter Plan of Treatment Not on file documented as of this encounter Visit Diagnoses Not on filedocumented in this encounter Care Teams Scallop Shucker Relationship Specialty Start Date End Date Bertrand Briceno [address] [place] [address] PCP - General Internal Medicine 11/23/24 documented as of this encounter
--- OUTSIDE RECORDS SUMMARY | 2025-02-14 14:55 | XMS_ITS | Referral Summary ---
Author Organization [facility] Address [address] [place] [address] Care Team Providers Care Veterinary Virologist Name Role Phone Bertrand Briceno Primary Care Provider [phone] Encounters Date Type Department Care Team Description 02/08/2025 12:23 PM EDT - 02/08/2025 11:59 PM EDT Hospital Encounter [facility] Pulmonary Function Lab [address] [phone] Dominique Montoya MD Other forms of dyspnea Discharge Disposition: Home or Self Care () 12/12/2024 Telephone [facility] [address] [phone] Sales Contracts Analyst: Ras Mojica Telephone Intake, Staff PAC Patient Request Call Back 12/09/2024 Telephone [facility] Patient Access Center [address] [place] [address] Telephone Intake, Staff PAC Patient Request Call Back from Last 3 Months Social History Tobacco Use Types Packs/Day Years Used Date Smoking Tobacco: Never Assessed Comments Unknown Sex and Gender Information Value Date Recorded Sex Assigned at Female 11/04/2024 12:03 PM EST Legal Sex Female 12:29 PM EST Gender Identity Female 11/04/2024 12:03 PM EST Sexual Orientation Not on file Plan of Treatment Not on file Insurance [facility] Care Teams Veterinary Virologist Relationship Specialty Start Date End Date Bertrand Briceno [address] [place] [id number] PCP - General Internal Medicine 11/23/24
--- OUTSIDE RECORDS SUMMARY | 2025-02-14 14:55 | XMS_ITS | Encounter Summary ---
Author Organization [facility] Address [address] [place] [address] Care Team Providers Care Director Data Analytics Name Role Phone Bertradn Briceno Primary Care Provider [phone] Reason for Visit * Insurance Referral (Routine) - Authorized Specialty Diagnoses / Procedures Referred By Contac t Referred To Contact Pulmonary Disease / Pulmonary Function Test Diagnoses Other forms of dyspnea [email or web address]./TRACEY ROWLEY/VITO/ASHLEY; Booked w/Patient's , Hakeem. Procedures STRESS TEST, PULMONARY PULM PROCEDURE 120 MIN Lucas Berry MD [address] [place] [address] Phone: tel: Dominique Montoya MD [address] [place] [address] Phone: tel: fax: Referral ID Status Reason Start Date Expiration Date V isits Requested Visits Authorized [id number] Authorized 12/09/2024 12/09/2025 6 6 Encounter Details Date Type Department Care Team (Latest Contact Info) Description 02/08/2025 12:23 PM EDT - 02/08/2025 11:59 PM EDT Hospital Encounter [facility] Pulmonary Function Lab [address] [place] [address] Dominique Montoya MD [address] [place] [address] Other forms of dyspnea Discharge Disposition: Home or Self Care (01) Social History Tobacco Use Types Packs/Day Years Used Date Smoking Tobacco: Never Assessed Comments Unknown Sex and Gender Information Value Date Recorded Sex Assigned at Female 11/04/2024 12:03 PM EST Legal Sex Female 12:29 PM EST Gender Identity Female 11/04/2024 12:03 PM EST Sexual Orientation Not on file documented as of this encounter Plan of Treatment Pending Results Name Type Priority Associated Diagnoses Date /Time Pulmonary Stress test PFT Routine Other forms of dyspnea 02/08/2025 3:55 PM EDT Scheduled Orders Name Type Priority Associated Diagnoses Orde r Schedule Pulmonary Stress test PFT Routine Other forms of dyspnea Once for 1 Occurrences starting 02/08/2025 until 02/08/2025 documented as of this encounter Visit Diagnoses Diagnosis Other forms of dyspnea documented in this encounter Care Teams Director Data Analytics Relationship Specialty Start Date End Date BricenoLane vanabebe [address] [place] [phone] PCP - General Internal Medicine 11/23/24 documented as of this encounter
--- OUTSIDE RECORDS SUMMARY | 2025-02-14 14:55 | XMS_ITS | Encounter Summary ---
Author Organization [facility] Address [address] [place] [address] Care Team Providers Care Tool Checker Name Role Phone Princess Esquivel MD Primary Care Provider Un available Bertrand Briceno MD Primary Care Provider [facility] e Evelyn Rodrigues MD Primary Care Prov ider Nenita Sifuentes PA-C Primary Care Provider [phone] Jt Hills NP Primary Care Provider Wilian murray Encounter Details Date Type Department Care Team Description 01/13/2019 [facility] Medical Records [address] [place] [id number] Abstract, Provider Social History Tobacco Use Types Packs/Day Years Used Date Smoking Tobacco: Never Smokeless Tobacco: Never Alcohol Use Standard Drinks/Week Comments No 0 (1 standard drink = 0.6 oz pur e alcohol) Sex Assigned at Date Recorded Not on file Job Start Date Occupation Industry Not on file Not on file Not on file documented as of this encounter Plan of Treatment Not on file documented as of this encounter Visit Diagnoses Not on filedocumented in this encounter Care Teams Tool Checker Relationship Specialty Start Date End Date Princess Esquivel MD PCP - General Internal Medicine 10/01/18 2 Bertrand Briceno MD PCP - General Internal Medicine 02/12/22 03/16/22 Evelyn Rodrigues MD [address] [place] [phone] PCP - General Internal Medicine 05/12/22 05/24/24 Nenita Sifuentes PA-C [address] [place] [id number] PCP - General Internal Medicine 03/26/22 05/11/22 Jt Hills NP [address] [place] [address] PCP - General Family Practice 05/25/24 documented as of this encounter
--- OUTSIDE RECORDS SUMMARY | 2025-02-14 14:55 | XMS_ITS | Clinical Summary ---
Author Organization [facility] Address [address] [place] [address] Care Team Providers Care Jailer/Training Officer Name Role Phone Bertrand Briceno Primary Care Provider [phone] Encounters Date Type Department Care Team Description 02/08/2025 12:23 PM EDT - 02/08/2025 11:59 PM EDT Hospital Encounter [facility] Pulmonary Function Lab [address] [place] [address] Dominiuqe Montoya MD Other forms of dyspnea Discharge Disposition: Home or Self Care () 12/12/2024 Telephone [facility] [address] [phone] Claims Adjudicator: Ras Mojica Telephone Intake, Staff PAC Patient Request Call Back 12/09/2024 Telephone [facility] Patient Access Center [address] [place], [place] [phone] Telephone Intake, Staff PAC Patient Request Call Back from Last 3 Months Social History Tobacco Use Types Packs/Day Years Used Date Smoking Tobacco: Never Assessed Comments Unknown Sex and Gender Information Value Date Recorded Sex Assigned at Female 11/04/2024 12:03 PM EST Legal Sex Female 12:29 PM EST Gender Identity Female 11/04/2024 12:03 PM EST Sexual Orientation Not on file Plan of Treatment Health Maintenance Due Date Last Done Comments Osteoporosis Screening 1995 Zoster Vaccines (1 of 2) 1995 DTaP,Tdap,and Td Vaccines (1 - Tdap) 08/20/2019 08/19/2019 Pneumococcal Vaccine: 50+ Years (2 of 2 - PCV) 08/19/2020 08/19/2019 RSV Vaccine (60+ years old and patients) (1 - 1-dose 75+ series) 2020 COVID-19 Vaccine ( - season) 2024 09/15/2022, 11/05/2021, 05/24/2021, Additional history exists Alcohol/Substance Use Screening 10/12/2024 Health Care Proxy Review 10/12/2024 Influenza Vaccine (Season Ended) 2025 09/07/2023, 09/12/2021, 09/26/2020, Additional history exists Hepatitis B Vaccines Aged Out No long er eligible based on patient's age to complete this topic Insurance Care Teams Jailer/Training Officer Relationship Specialty Start Date End Date Bertrand Briceno [address] [place] [id number] PCP - General Internal Medicine 11/23/24
--- OUTSIDE RECORDS SUMMARY | 2025-02-14 14:55 | XMS_ITS | Clinical Summary ---
Author Organization [address] Address [address] [place] [address] Phone Care Team Providers Care Ink Grinder Name Role Phone Bertrand Briceno MD Primary Care Provider [phone] Allergies No known active allergies Medications clotrimazole-be [...] Active Problems Problem Noted Date Diagnosed Date Fluid in endometrial cavity 02/07/2025 Postmenopausal bleeding 03/14/2022 Overview (10/07/2024): Last Assessment & Plan: I recommended US to evaluate endometrium. If normal no further testing unless she has another episode and she agrees to let me know. She will return for routine examine when available. No further Paps necessary as neg, neg HPV in 2019 and never had HPV testing with [facility] Paps in [place]. Assessment & Plan (01/20/2025 10:04 AM EDT): [...] Encounters Date Type Department Care Team Description 02/09/2025 Telephone Obstetrics and Gynecology - [address] [phone] Vania Pathak MD 02/07/2025 Telephone Obstetrics and Gynecology - [address] [place] [phone] Vania Pathak MD 01/31/2025 2:31 PM EDT - 01/31/2025 11:59 PM EDT Hospital Encounter Radiology Department - [address] [phone] Postmenopausal bleeding Discharge Disposition: Home or Self Care 01/20/2025 9:00 AM EDT Office Visit Obstetrics and Gynecology - [address] [phone] Vania Pathak MD Postmenopausal bleeding (Primary Dx) from Last 3 Months Surgical History Surgery Date Site/Laterality Comments TOTAL KNEE ARTHROPLASTY 01/10/2016 Right PROCEDURE: HISTORICAL TOTAL KNEE REPLACE; COMMENT: in [place] SECTION PROCEDURE: HISTORICAL ; COMMENT: x2 ROTATOR CUFF REPAIR 07/15/2017 Left PROCEDURE: HISTORICAL ROTATOR CUFF REPAIR COLONOSCOPY 05/05/2012 PROCEDURE: HISTORICAL COLONOSCOPY; COMMENT: Performed in [place]. 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/27/2018 DX :Total knee replacement status; COMMENT: 2015 Right, in [place] Osteoarthritis 10/27/2018 DX:Osteoarthriti s; COMMENT: Shoulders, Left [...] Upcoming Encounters Date Type Department Care Team (Latest Contact Info) Description 03/01/2025 1:00 PM EDT Hospital Encounter [facility] [place] [address] [place] [phone] Vania Pathak MD [address] [place], [place] 03/01/2025 1:00 PM EDT - 03/01/2025 2:[address] [facility] [place] [address] [place] [phone] Vania Pathak MD [address] [place] [address] HYSTEROSCOPY WITH dilation and curttage [[id number] (CPT??)] Scheduled Procedures Name Priority Associated Diagnoses Date/Ti me HYSTEROSCOPY WITH ENDOMETRIAL RESECTION Postmenopausal bleeding Fluid in endometrial cavity 03/01/2025 1:00 PM EDT Health Maintenance Due Date Last Done Comments [...] Procedure Name Priority Date/Time Associated Diagnosis Comments US PELVIS NON OB COMPLETE W TRANSVAGINAL Routine 01/31/2025 3:26 PM EDT Postmenopausal bleeding CBC WITH AUTO DIFFERENTIAL Routine 12/26/2024 9:28 AM EDT Vitamin B12 deficiency anemia Screening for diabetes mellitus Routine general medical examination at a [facility] Screening for thyroid disorder Screening for lipoid disorders THYROID STIMULATING HORMONE Routine 12/26/2024 9:28 AM EDT Vitamin B12 deficiency anemia Screening for diabetes mellitus Routine general medical examination at a [facility] facility Aviminosis D Screening for thyroid disorder Screening for lipoid disorders Abnormal blood chemistry Hypolipidemia Other general symptoms and signs LIPID PANEL WITH REFLEX TO DIRECT LDL Routine 12/26/2024 9:28 AM EDT Vitamin B12 deficiency anemia Screening for diabetes mellitus Routine general medical examination at a [facility] facility Avitaminosis D Screening for thyroid disorder Screening for lipoid disorders Abnormal blood chemistry Hypolipidemia VITAMIN D 25 HYDROXY Routine 12/26/2024 9:28 AM EDT Vitamin B12 deficiency anemia Screening for diabetes mellitus Routine general medical examination at a [facility] Avitaminosis D Screening for thyroid disorder Screening for lipoid disorders CBC AND DIFFERENTIAL Routine 12/26/2024 9:28 AM EDT Vitamin B12 deficiency anemia Screening for diabetes mellitus Routine general medical examination at [facility] Avitaminosis D Screening for [...] Recently Relevant to Health Maintenance Results * US Pelvis Non OB Complete w Transvaginal (01/31/2025 3:26 PM EDT) Anatomical Region Laterality Modality Body, Pelvis Ultrasound 01/31/2025 5:19 PM EDT Narrative 01/31/2025 5:21 PM EDT Pelvic ultrasound. HISTORY: Postmenopausal bleeding. Comparison is prior study from 03/19/2022. Examination was performed transabdominally and transvaginally. Uterus was visualized measuring 5.3 x 2 x 3.8 cm. There is a small amount of fluid within the endometrial cavity. Endometrium measures 4 mm in thickness. There is no free fluid in the cul-de-sac. Ovaries were not visualized. No focal abnormalities were identified in the adnexal areas. CONCLUSIONS: Fluid within the endometrial cavity. Otherwise unremarkable examination. -------- FINAL REPORT -------- Dictated By: Dominique Smith Dictated Date: 01/31/2025 17:19 ET Assigned Physician: Dominique Smith Reviewed and Electronically Signed By: Dominique Smith Signed Date: 01/31/2025 17:21 ET Workstation ID: [id number] Transcribed By: Self Edit Transcribed Date: 01/31/2025 17:19 ET Procedure Note Dominique Smith MD - 01/31/2025 Pelvic ultrasound. HISTORY: Postmenopausal bleeding. Comparison is prior study from 03/19/2022. Examination was performed transabdominally and transvaginally. Uterus was visualized measuring 5.3 x 2 x 3.8 cm. There is a small amountof fluid within the endometrial cavity. Endometrium measures 4 mm inthickness. There is no free fluid in the cul-de-sac. Ovaries were notvisualized. No focal abnormalities were identified in the adnexal areas. CONCLUSIONS: Fluid within the endometrial cavity. Otherwise unremarkableexamination. -------- FINAL REPORT -------- Dictated By: Dominique Smith Dictated Date: 01/31/2025 17:19 ET Assigned Physician: Dominique Smith Reviewed and Electronically Signed By: Dominique Smith Signed Date: 01/31/2025 17:21 ET Workstation ID: [id number] Transcribed By: Self Edit Transcribed Date: 01/31/2025 17:19 ET us Vania Pathak MD IMG US PROCEDURES Final Res ult * Lipid panel with reflex to direct LDL (12/26/2024 9:28 AM EDT) Cholesterol 181 0 - 200 mg/dL LAB CHEMISTRY METHOD 12/26/2024 1:15 PM EDT [facility] Triglycerides 109 0 - 150 mg/dL LAB CHEMISTRY METHOD 12/26/2024 1:15 PM EDT [facility] HDL 69 >=40 mg/dL LAB CHEMISTRY METHOD 12/26/2024 1:15 PM EDT [facility] LDL Calculated 90 0 - 100 mg/dL LAB CHEMISTRY METHOD 12/26/2024 1:15 PM EDT [facility] VLDL Cholesterol [place] 21.8 mg/dL LAB CHEMISTRY METHOD 12/26/2024 1:15 PM EDT [facility] Non HDL Chol. (LDL+VLDL) 112 <145 mg/dL LAB CHEMISTRY METHOD 12/26/2024 1:15 PM EDT [facility] Chol/HDL Ratio 2.6 0.0 - 4.4 LAB CHEMISTRY METHOD 12/26/2024 1:15 PM EDT [facility] Blood Venous blood specimen / Unknown Venipuncture / Unknown 12/26/2024 9:28 AM EDT 12/26/2024 11:12 AM EDT us Jt Hills LABOR COMMISSIONER LAB BLOOD ORDERABLES Final Re sult [facility] [address] [place] [address], [place] [phone] * (ABNORMAL) CBC auto differential (12/26/2024 9:28 AM EDT) [facility] WBC 4.9 4.8 - 10.8 K/mcL LAB HEMETOLOGY METHOD 12/26/2024 11:46 AM [facility] RBC 4.10 3.80 - 4.80 M/mcL LAB HEMETOLOGY METHOD 12/26/2024 11:46 AM [facility] Hemoglobin 13.3 11.5 - 16.0 g/dL LAB HEMETOLOGY METHOD 12/26/2024 11:46 AM [facility] Hematocrit 40.4 35.0 - 47.0 % LAB HEMETOLOGY METHOD 12/26/2024 11:46 AM [facility] MCV 97.6 79.0 - 98.0 FL LAB HEMETOLOGY METHOD 12/26/2024 11:46 AM [facility] MCH 32.1(H) 27.0 - 32.0 pcg LAB HEMETOLOGY METHOD 12/26/2024 11:46 AM [facility] MCHC 32.9 32.0 - 37.0 g/dL LAB HEMETOLOGY METHOD 12/26/2024 11:46 AM [facility] RDW 13.9 11.0 - 15.0 % LAB HEMETOLOGY METHOD 12/26/2024 11:46 AM [facility] Platelets 202 130 - 400 K/mcL LAB HEMETOLOGY METHOD 12/26/2024 11:46 AM [facility] MPV 12.8(H) 7.0 - 11.0 FL LAB HEMETOLOGY METHOD 12/26/2024 11:46 AM [facility] NRBC 0.0 <1.0 % LAB HEMETOLOGY METHOD 12/26/2024 11:46 AM [facility] NRBC Absolute 0.00 <0.10 K/mcL LAB HEMETOLOGY METHOD 12/26/2024 11:46 AM [facility] Neutrophils Relative 36.1 % LAB HEMETOLOGY METHOD 12/26/2024 11:46 AM [facility] Lymphocytes Relative 39.1 % LAB HEMETOLOGY METHOD 12/26/2024 11:46 AM [facility] Monocytes Relative 12.3 % LAB HEMETOLOGY METHOD 12/26/2024 11:46 AM [facility] Eosinophils Relative 11.7 % LAB HEMETOLOGY METHOD 12/26/2024 11:46 AM [facility] Basophils Relative 0.6 % LAB HEMETOLOGY METHOD 12/26/2024 11:46 AM [facility] Immature Granulocytes Relative 0.2 % LAB HEMETOLOGY METHOD 12/26/2024 11:46 AM [facility] Neutrophils Absolute 1.77 1.50 - 7.00 K/mcL LAB HEMETOLOGY METHOD 12/26/2024 11:46 AM [facility] Lymphocytes Absolute 1.91 1.00 - 5.00 K/mcL LAB HEMETOLOGY METHOD 12/26/2024 11:46 AM [facility] Monocytes Absolute 0.60 0.20 - 1.00 K/mcL LAB HEMETOLOGY METHOD 12/26/2024 11:46 AM [facility] Eosinophils Absolute 0.57(H) 0.00 - 0.50 K/mcL LAB HEMETOLOGY METHOD 12/26/2024 11:46 AM [facility] Basophils Absolute 0.03 0.00 - 0.20 K/mcL LAB HEMETOLOGY METHOD 12/26/2024 11:46 AM [facility] Immature Granulocytes Absolute 0.01 0.00 - 0.03 K/mcL LAB HEMETOLOGY METHOD 12/26/2024 11:46 AM EDT [facility] Blood Venous blood specimen / Unknown Venipuncture / Unknown 12/26/2024 9:28 AM EDT 12/26/2024 11:16 AM EDT Jt Hills LABOR COMMISSIONER LAB BLOOD ORDERABLES Final Re sult Performing Organization Address City/[facility]/ZIP Co de Phone Number [facility] [address] [place] [address], [place] [phone] * Vitamin D 25 hydroxy (12/26/2024 9:28 AM EDT) Vit D, 25-Hydroxy 39.7 30.0 - 80.0 ng/mL LAB CHEMISTRY METHOD 12/26/2024 12:03 PM EDT [facility] Blood Venous blood specimen / Unknown Venipuncture / Unknown 12/26/2024 9:28 AM EDT 12/26/2024 11:12 AM EDT us Jt Hills NP LAB BLOOD ORDERABLES Final Re sult Performing Organization Address [facility] de Phone Number [facility] [address] [place] [address], [place] [phone] * Thyroid stimulating hormone (12/26/2024 9:28 AM EDT) TSH 1.91 0.40 - 4.00 mcIU/mL LAB CHEMISTRY METHOD 12/26/2024 12:03 PM EDT [facility] Blood Venous blood specimen / Unknown Venipuncture / Unknown 12/26/2024 9:28 AM EDT 12/26/2024 11:12 AM EDT Jt Hills LABOR COMMISSIONER LAB BLOOD ORDERABLES Final Re sult Performing Organization Address City/[facility]/ZIP Co de Phone Number [facility] [address] [place] [address], [place] [phone] * Hemoglobin A1c (12/26/2024 9:28 AM EDT) [facility] Hemoglobin A1C 5.4 <6.5 % LAB CHEMISTRY METHOD 12/26/2024 2:12 PM EDT [facility] Mean Bld Glu Estim. 108 mg/dL LAB CHEMISTRY METHOD 12/26/2024 2:12 PM EDT [facility] Blood Venous blood specimen / Unknown Venipuncture / Unknown 12/26/2024 9:28 AM EDT 12/26/2024 11:16 AM EDT Jt Hills LABOR COMMISSIONER LAB BLOOD ORDERABLES Final Re sult Performing Organization Address [facility]/ZIP Co de Phone Number [facility] [address] [place] [address], * Vitamin B12 (12/26/2024 9:28 AM EDT) [facility] Vitamin B-12 704 250 - 900 pcg/mL LAB CHEMISTRY METHOD 12/26/2024 1:15 PM EDT [facility] Blood Venous blood specimen / Unknown Venipuncture / Unknown 12/26/2024 9:28 AM EDT 12/26/2024 11:12 AM EDT Jt Hills LABOR COMMISSIONER LAB BLOOD ORDERABLES Final Re sult [facility] [address] [place] [address], [place] [phone] * (ABNORMAL) Comprehensive metabolic panel (12/26/2024 9:28 AM EDT) [facility] Sodium 141 133 - 145 mmol/L LAB CHEMISTRY METHOD 12/26/2024 1:15 PM EDT [facility] Potassium 4.2 3.5 - 5.5 mmol/L LAB CHEMISTRY METHOD 12/26/2024 1:15 PM [facility] Chloride 109 96 - 110 mmol/L LAB CHEMISTRY METHOD 12/26/2024 1:15 PM [facility] CO2 24 21 - 32 mmol/L LAB CHEMISTRY METHOD 12/26/2024 1:15 PM [facility] Anion Gap 8 3 - 11 LAB CHEMISTRY METHOD 12/26/2024 1:15 PM [facility] Glucose 82 70 - 100 mg/dL LAB CHEMISTRY METHOD 12/26/2024 1:15 PM [facility] BUN 23 5 - 25 mg/dL LAB CHEMISTRY METHOD 12/26/2024 1:15 PM [facility] Creatinine 0.87 0.50 - 1.10 mg/dL LAB CHEMISTRY METHOD 12/26/2024 1:15 PM [facility] eGFR 68 >=60 mL/min/1. 73m2 LAB CHEMISTRY METHOD 12/26/2024 1:15 PM [facility] Comment:Calculation based on the??Chronic Kidney Disease Epidemiology Collaboration (CKD-EPI) equation refit??without adjustment for race. BUN/Creatinine Ratio 26.4 LAB CHEMISTRY METHOD 12/26/2024 1:15 PM [facility] Calcium 9.3 8.5 - 10.5 mg/dL LAB CHEMISTRY METHOD 12/26/2024 1:15 PM [facility] AST (SGOT) 22 10 - 42 unit/L LAB CHEMISTRY METHOD 12/26/2024 1:15 PM [facility] ALT (SGPT) 27 10 - 60 unit/L LAB CHEMISTRY METHOD 12/26/2024 1:15 PM [facility] Alkaline Phosphatase 128(H) 42 - 121 unit/L LAB CHEMISTRY METHOD 12/26/2024 1:15 PM [facility] Total Protein 6.5 6.0 - 8.0 g/dL LAB CHEMISTRY METHOD 12/26/2024 1:15 PM EDT [facility] Albumin 3.8 3.2 - 5.0 g/dL LAB CHEMISTRY METHOD 12/26/2024 1:15 PM EDT [facility] Total Bilirubin 0.5 0.0 - 1.4 mg/dL LAB CHEMISTRY METHOD 12/26/2024 1:15 PM EDT [facility] Blood Venous blood specimen / Unknown Venipuncture / Unknown 12/26/2024 9:28 AM EDT 12/26/2024 11:12 AM EDT us Jt Hills LABOR COMMISSIONER LAB BLOOD ORDERABLES Final Re sult [facility] [address] [place] [address], [place] [phone] * Pap smear (08/09/2019) 08/09/2019 Narrative HISTORICAL TESTING LAB RESULTING AGENCY - 08/12/2019 2:16 PM EDT [id number] THINPREP PAP, IMAGED: NEGATIVE FOR SQUAMOUS INTRAEPITHELIAL [...] CLINICAL INFORMATION: HPV ANY DIAGNOSIS. POS [facility] 2013 AND 2018, UNKNOWN HPV, DONE IN GUAM, Z12.4 us Vania Pathak MD LAB CYTOLOGY ORDERABLES Fin al Result HISTORICAL TESTING LAB RESULTING AGENCY from Last 3 Months or Most Recently Relevant to Health Maintenance Insurance [employer] Care Teams Ink Grinder Relationship Specialty Start Date End Date Bertrand Briceno MD [address] [place] [address] [phone] PCP - General Internal Medicine 01/09/25
--- OUTSIDE RECORDS SUMMARY | 2025-02-14 14:55 | XMS_ITS ---
Author Organization [facility] Address [address] [place] [address] Care Team Providers Care Hydraulic Repairer Name Role Phone NEO ODOM Unavailable [phone] REASON FOR VISIT Refill - Lyrica MEDICATIONS Medication SIG (Take, Route, Frequency, Duration) Notes Start Date End Date Status Lyrica 150 MG 1 capsule Orally Twi ce a day for 90 days 01/19/2025 Active Encounters Encounter Location Date Provider Diagnosis [facility] [address] [place] [phone] 01/19/2025 NEO ILENE Fibromyalgia M79.7 ASSESSMENTS Encounter Date Diagnosis Assessment Notes Treatment Notes Treatment Clinical Notes Section Notes 01/19/2025 Fibromyalgia (ICD-10 - M79.7) PLAN OF TREATMENT Medication Medication Name Sig Start Date Stop Date Notes Lyrica 150 MG 1 capsule Orally Twice a day for 90 days 07/2025 Progress Notes * Michael BEAROB: 1945 (79 yo F)Acc No.[id number]:01/19/2025 Patient:??Ford BEAR :1945?Age:79 Y?Sex:Fe male Address:[address] [place] [address] * Refills?? Refill Lyrica Capsule, 150 MG, Orally, 180 Capsule, 1 capsule, Twice a day, 90 days, Refills=3 * true * Date:??
--- OUTSIDE RECORDS SUMMARY | 2025-02-14 14:56 | XMS_ITS | Patient Health Record ---
Author Organization [facility] Address [address] [facility] [place] [address] Care Team Providers Care Hand Upper And Bottom Lacer Name Role Phone NEO ODOM Unavailable [phone] ALLERGIES No Known Allergies RESULTS Component Value Reference Range Notes CBC WITH AUTO DIFFERENTIAL Reviewed date:12/26/2024 03:02:41 [...] 0.87 0.50-1.10 mg/dL eGFR 68 >=60 mL/min/1.73m2 Calculation based on the Chronic Kidney Disease Epidemiology [...] Lab: Notes/Report: Vitamin B-12 704 250-900 pcg/mL US PELVIS NON OB COMPLETE W TRANSVAGINAL Reviewed date:02/02/2025 11:49:31 AM Interpretation: Performing Lab: Notes/Report: Note See Note [facility], a member of [employer] Patient Name: NAIF DAVIS Date of : 1945 Reason for Exam: PMB, historical thin lining Exam Date: 01/31/2025 [id number] EST Report Status: Final Ordering Provider: RAMON RODRIGUEZ PCP: ANJEL PATTEN Pelvic ultrasound. HISTORY: Post[place]au sergo bleeding. Comparison is prior study from 03/19/2022. Examination was perf ormed transabdominally and transvaginally. Uterus was visualize d measuring 5.3 x 2 x 3.8 cm. There is a small amount of fluid within the endometrial cavity. Endometrium measures 4 mm in thickness. There is no free fluid in the cul-de-sac. Ovaries were not visualized. No focal abnormalities were identified in the adnexal areas. CONCLUSIONS: Fluid w ithin the endometrial cavity. Otherwise unremarkable examination. -------- FINAL REPOR T -------- Dictated By: Dominique Gan Dictated Date: 01/31 17:19 ET Assigned Physician: Dominique Smith Reviewed and Electronically Signed By: Dominique Smith Signed Date: 025 17:21 ET Workstation ID: [id number] Transcribed By: Self Edit Transcribed Date: 01/31/2025 17:19 ET REASON FOR REFERRAL Diagnosis 1 Other chronic pain ( G89.29) Referral Organization [place] [address] Referring Provider First Name NEO Referring Provider Last Name [facility] Referring Provider Speciality Internal edicine Referred Provider Specialty Chiropractor General Notes faxed over referral with attachments to [facility] at fax - [phone], phone Clinical Notes Anupama Ma 03/25 12:27:17 PM >, faxed, Pierre Alcaraz 04/05/2024 02:31:01 PM > The patient was last seen on March 30, 2024 Referral Priority Routine Reason Pt needing a referra l for rheumatology for fibromyalgia Diagnosis 1 Fibromyalgia (M79.7) Referral Organization [place] [address] Referring Provider First Name NEO Referring Provider Last Name BORHOT Referring Provider Speciality Internal edicine Referred Provider Ana Taylor Referred Provider Specialty Rheumatology General Notes re-faxed to Dr. Prabhjot larose, [facility] , phone- , [phone] Clinical Notes Anupama Ma 05/17 03:35:14 PM >, dr hart does not take pts with fibromyalgia , pt [place] speaking only please call daughter at for translation. ( added to billing alert), Anupama Ma 05/31/2024 08:59:11 AM >, received the denial in faxes re-faxed to [facility], phone- [phone] , Ana Sofia MD, KieranPierre 06/15/2024 11:31:46 AM > I called the patient and informed her that she needed to register at the office first before they could set up an appointment for her. I provided the office's phone number, Anupama Ma 06/23/2024 02:08:44 PM >, pt called stating they never received the referral and asked us to fax referral to [phone], Anupama Ma 07/04/2024 01:59:55 PM >, called to f/u on referral that was sent it looks like they have her under naif davis and they registered her. , they only have one provider that does fibromyalgia so referral pending, Pierre Alcaraz 07/21/2024 11:31:02 AM > Scheduled for 01/04/2025 at 1 pm. Pt aware Referral Priority Routine Reason [facility] Diagnosis 1 Asymptomatic varicos e veins (I83.90) Referral Organization [place] [address] Referring Provider First Name NEO Referring Provider Last Name ILENE Referring Provider Speciality Internal edicine Referred Provider Specialty Vascular Maegan john General Notes Jody Mackey 025 03:18:18 PM > Referral faxed to [facility] P. [phone] F. [phone] Referral Priority Routine MEDICATIONS Medication SIG (Take, [...] as needed Orally Once a day Active Lyrica 150 MG 1 capsule Orally Twi ce a day for 90 days 01/19/2025 Active Nebulizer - as directed DISPENSE WITH [...] tablet Oral ly Once a day Active IMMUNIZATIONS Vaccine Route Administration Date Status [...] Problem Hyperlipidemia, unspecified (E78.5) Active confirmed Hyperlipidemia (02557188) Problem Other chronic pain (G89.29) Active confirmed 43454919 Problem Fibromyalgia (M79.7) Active confirmed Fibromyalgia (834838115) Problem Encounter for general adult medical examination without abnormal findings (Z00.00) Active confirmed 901538264 Problem Encounter for screening for diabetes mellitus (Z13.1) Active confirmed 915740375 Problem Encounter for screening for other suspected endocrine disorder (Z13.29) Active confirmed 896835233 Problem Neuropathy (G62.9) Active confirmed 626021185 Problem Lung nodule (R91.1) Active confirmed 637623499 Problem Anxiety (F41.9) Active confirmed 289834 02 Problem Vitamin D deficiency (E55.9) Active confirmed Vitamin D deficiency (98927575) Problem Diabetes mellitus screening (Z13.1) Active confirmed Diabetes mellit us screening (870062111) Problem Osteoporosis without current pathological fracture, unspecified osteoporosis type (M81.0) Active confirmed 15059463 Problem Mild episode of recurrent major depressive disorder (F33.0) Active confirmed 795240051 Problem Anemia due to vitamin B12 deficiency, unspecified B12 deficiency type (D51.9) Active confirmed Vitamin B>12< deficiency anaemia (22516573) Problem Encounter for screening for endocrine disorder (Z13.29) Active confirmed Endocrine/metab ol ic screening (997959883) Problem Lipid screening (Z13.220) Active confirmed Lipid screening (935503020) Problem Asymptomatic varicose veins (I83.90) Active confirmed Venous varices (296971812) Problem Asthmatic bronchitis , chronic (J44.89) Active confirmed 821484700 VITAL SIGNS Heart Rate 89 /min 12/21/2024 Blood pressure diastolic 84 mm Hg 12/21/2024 Oximetry 99 % 12/21/2024 Height 61 in 12/21/2024 Blood pressure systolic 132 mm Hg 12/21/2024 Weight 175 lbs 12/21/2024 BMI 33.06 kg/m2 12/21/2024 Encounters Encounter Location Date Provider Diagnosis [facility] [address] [address] 03/10/2024 NEO BARILLASGt Fibromyalgia M79.7 ; Vitamin D deficiency E55.9 ; Hyperlipidemia, unspecified E78.5 ; Vitamin B 12 deficiency E53.8 ; Osteoporosis without current pathological fracture, unspecified osteoporosis type M81.0 and Anxiety F41.[address] [facility] [address] [address] 05/11/2024 NEO ODOM Fibromyalgia M79.7 ; Hyperlipidemia, unspecified E78.5 ; Vitamin B 12 deficiency E53.8 ; Osteoporosis without current pathological fracture, unspecified osteoporosis type M81.0 and Anxiety F41.9 [facility] [facility] [address] 07/04/2024 NEO ODOM Fibromyalgia M79.7 [facility] [address] 12/21/2024 NEO ODOM Encounter for annual health examination Z00.00 ; Encounter for screening for other disorder Z13.89 ; Encounter for screening for depression Z13.31 ; Advanced directives, counseling/discussion Z71.89 ; Fibromyalgia M79.7 ; Hyperlipidemia, unspecified E78.5 ; Osteoporosis without current pathological fracture, unspecified osteoporosis type M81.0 ; Anxiety F41.9 and Superficial varicosities I83.90 [facility] [address] [address] 02/15/2024 [facility] [address] [place] [address] 03/10/2024 [facility] [address] [place] [address] 03/16/2024 [facility] [address] [address] 03/25/2024 [facility] [address] 03/28/2024 [facility] [address] 05/17/2024 [place] [address] [address] 05/18/2024 NEO [facility] [address] [address] 05/24/2024 NEOMAURICE ODOM Fibromyalgia M79.7 [facility] [address] [address] 05/30/[address] [facility] [address] [place] [address] 05/31/2024 NEO BORHOT [address] [place] [address] 07/06/[address] [facility] [address] [place] [address] 07/06/[address] [facility] [address] [place] [address] 07/29/2024 NEO BORHOT Fibromyalgia M79.7 [address] [place] [address] 11/15/[address] [place] [address] 11/18/2024 NEO BORHOT [address] [place] [address] 12/23/2024 NEO BORHOT [address] [place] [address] 12/23/2024 NEO BORHOT [address] [place] [address] 12/29/2024 NEO BORHOT [address] [place] [address] 01/09/2025 NEO BORHOT [address] [place] [address] 01/19/2025 NEO BORHOT Fibromyalgia M79.7 ASSESSMENTS Encounter Date Diagnosis Assessment Notes Treatment Notes Treatment Clinical Notes Section Notes 05/11/2024 Hyperlipidemia, unspecified (ICD-10 - E78.5) Acute Concerns/Problem List: 05/11/2024 Chronic conditions are stable Letter of support provided Will see her back upon return from [place] for Medicare wellness visit and labs Of note, some information is being carried forward from prior records for informational purposes only and is being cited so that efficiency, safety and quality of the patient's care is not compromised This note was prepared using voice recognition software and direct typing Please excuse inadvertent application support manager or typing errors, or uncorrected word substitutions Although every attempt has been made by the provider to proofread this document, occasional misspellings and typographical errors may still be present Due to the previous pandemic, and the use of personal protective equipment (PPE) This may decrease voice recognition accuracy Inadvertent application support manager errors may occur 05/11/2024 Fibromyalgia (ICD-10 - M79.7) Acute Concerns/Problem List: 05/11/2024 Chronic conditions are stable Letter of support provided Will see her back upon return from [place] for Medicare wellness visit and labs Of note, some information is being carried forward from prior records for informational purposes only and is being cited so that efficiency, safety and quality of the patient's care is not compromised This note was prepared using voice recognition software and direct typing Please excuse inadvertent application support manager or typing errors, or uncorrected word substitutions Although every attempt has been made by the provider to proofread this document, occasional misspellings and typographical errors may still be present Due to the previous pandemic, and the use of personal protective equipment (PPE) This may decrease voice recognition accuracy Inadvertent application support manager errors may occur 05/24/2024 Fibromyalgia (ICD-10 - [...] software and direct typing Please excuse inadvertent application support manager or typing errors, or uncorrected word substitutions Although every attempt has been made by the provider to proofread this document, occasional misspellings and typographical errors may still be present Due to the previous pandemic, and the use of personal protective equipment (PPE) This may decrease voice recognition accuracy Inadvertent application support manager errors may occur 07/29/2024 Fibromyalgia (ICD-10 - [...] software and direct typing Please excuse inadvertent application support manager or typing errors, or uncorrected word substitutions Although every attempt has been made by the provider to proofread this document, occasional misspellings and typographical errors may still be present Due to the previous pandemic, and the use of personal protective equipment (PPE) This may decrease voice recognition accuracy Inadvertent application support manager errors may occur 12/21/2024 Encounter for annual [...] software and direct typing Please excuse inadvertent application support manager or typing errors, or uncorrected word substitutions Although every attempt has been made by the provider to proofread this document, occasional misspellings and typographical errors may still be present Due to the previous pandemic, and the use of personal protective equipment (PPE) This may decrease voice recognition accuracy Inadvertent application support manager errors may occur 01/19/2025 Fibromyalgia (ICD-10 - M79.7) 03/10/2024 Fibromyalgia (ICD-10 - M79.7) Of note, some information is being carried forward from prior records for informational purposes only and is being cited so that efficiency, safety and quality of the patient's care is not compromised This note was prepared using voice recognition software and direct typing Please excuse inadvertent application support manager or typing errors, or uncorrected word substitutions Although every attempt has been made by the provider to proofread this document, occasional misspellings and typographical errors may still be present Due to the previous pandemic, and the use of personal protective equipment (PPE) This may decrease voice recognition accuracy Inadvertent application support manager errors may occur 03/10/2024 Vitamin D deficiency (ICD-10 - E55.9) Of note, some information is being carried forward from prior records for informational purposes only and is being cited so that efficiency, safety and quality of the patient's care is not compromised This note was prepared using voice recognition software and direct typing Please excuse inadvertent application support manager or typing errors, or uncorrected word substitutions Although every attempt has been made by the provider to proofread this document, occasional misspellings and typographical errors may still be present Due to the previous pandemic, and the use of personal protective equipment (PPE) This may decrease voice recognition accuracy Inadvertent application support manager errors may occur 03/10/2024 Hyperlipidemia, unspecified (ICD-10 - E78.5) Of note, some information is being carried forward from prior records for informational purposes only and is being cited so that efficiency, safety and quality of the patient's care is not compromised This note was prepared using voice recognition software and direct typing Please excuse inadvertent application support manager or typing errors, or uncorrected word substitutions Although every attempt has been made by the provider to proofread this document, occasional misspellings and typographical errors may still be present Due to the previous pandemic, and the use of personal protective equipment (PPE) This may decrease voice recognition accuracy Inadvertent application support manager errors may occur 12/21/2024 Encounter for screening [...] software and direct typing Please excuse inadvertent application support manager or typing errors, or uncorrected word substitutions Although every attempt has been made by the provider to proofread this document, occasional misspellings and typographical errors may still be present Due to the previous pandemic, and the use of personal protective equipment (PPE) This may decrease voice recognition accuracy Inadvertent application support manager errors may occur 05/11/2024 Vitamin B 12 deficiency (ICD-10 - E53.8) Acute Concerns/Problem List: 05/11/2024 Chronic conditions are stable Letter of support provided Will see her back upon return from [place] for Medicare wellness visit and labs Of note, some information is being carried forward from prior records for informational purposes only and is being cited so that efficiency, safety and quality of the patient's care is not compromised This note was prepared using voice recognition software and direct typing Please excuse inadvertent application support manager or typing errors, or uncorrected word substitutions Although every attempt has been made by the provider to proofread this document, occasional misspellings and typographical errors may still be present Due to the previous pandemic, and the use of personal protective equipment (PPE) This may decrease voice recognition accuracy Inadvertent application support manager errors may occur 05/11/2024 Osteoporosis without current pathological fracture, unspecified osteoporosis type (ICD-10 - M81.0) Acute Concerns/Problem List: 05/11/2024 Chronic conditions are stable Letter of support provided Will see her back upon return from [place] for Medicare wellness visit and labs Of note, some information is being carried forward from prior records for informational purposes only and is being cited so that efficiency, safety and quality of the patient's care is not compromised This note was prepared using voice recognition software and direct typing Please excuse inadvertent application support manager or typing errors, or uncorrected word substitutions Although every attempt has been made by the provider to proofread this document, occasional misspellings and typographical errors may still be present Due to the previous pandemic, and the use of personal protective equipment (PPE) This may decrease voice recognition accuracy Inadvertent application support manager errors may occur 12/21/2024 Advanced directives, counseling/discu [...] software and direct typing Please excuse inadvertent application support manager or typing errors, or uncorrected word substitutions Although every attempt has been made by the provider to proofread this document, occasional misspellings and typographical errors may still be present Due to the previous pandemic, and the use of personal protective equipment (PPE) This may decrease voice recognition accuracy Inadvertent application support manager errors may occur 03/10/2024 Vitamin B 12 deficiency (ICD-10 - E53.8) Of note, some information is being carried forward from prior records for informational purposes only and is being cited so that efficiency, safety and quality of the patient's care is not compromised This note was prepared using voice recognition software and direct typing Please excuse inadvertent application support manager or typing errors, or uncorrected word substitutions Although every attempt has been made by the provider to proofread this document, occasional misspellings and typographical errors may still be present Due to the previous pandemic, and the use of personal protective equipment (PPE) This may decrease voice recognition accuracy Inadvertent application support manager errors may occur 03/10/2024 Osteoporosis without current pathological fracture, unspecified osteoporosis type (ICD-10 - M81.0) Of note, some information is being carried forward from prior records for informational purposes only and is being cited so that efficiency, safety and quality of the patient's care is not compromised This note was prepared using voice recognition software and direct typing Please excuse inadvertent application support manager or typing errors, or uncorrected word substitutions Although every attempt has been made by the provider to proofread this document, occasional misspellings and typographical errors may still be present Due to the previous pandemic, and the use of personal protective equipment (PPE) This may decrease voice recognition accuracy Inadvertent application support manager errors may occur 12/21/2024 Fibromyalgia (ICD-10 - [...] software and direct typing Please excuse inadvertent application support manager or typing errors, or uncorrected word substitutions Although every attempt has been made by the provider to proofread this document, occasional misspellings and typographical errors may still be present Due to the previous pandemic, and the use of personal protective equipment (PPE) This may decrease voice recognition accuracy Inadvertent application support manager errors may occur 05/11/2024 Anxiety (ICD-10 - F41.9) Acute Concerns/Problem List: 05/11/2024 Chronic conditions are stable Letter of support provided Will see her back upon return from [place] for Medicare wellness visit and labs Of note, some information is being carried forward from prior records for informational purposes only and is being cited so that efficiency, safety and quality of the patient's care is not compromised This note was prepared using voice recognition software and direct typing Please excuse inadvertent application support manager or typing errors, or uncorrected word substitutions Although every attempt has been made by the provider to proofread this document, occasional misspellings and typographical errors may still be present Due to the previous pandemic, and the use of personal protective equipment (PPE) This may decrease voice recognition accuracy Inadvertent application support manager errors may occur 12/21/2024 Hyperlipidemia, unspecified (ICD-10 [...] software and direct typing Please excuse inadvertent application support manager or typing errors, or uncorrected word substitutions Although every attempt has been made by the provider to proofread this document, occasional misspellings and typographical errors may still be present Due to the previous pandemic, and the use of personal protective equipment (PPE) This may decrease voice recognition accuracy Inadvertent application support manager errors may occur 03/10/2024 Anxiety (ICD-10 - F41.9) Of note, some information is being carried forward from prior records for informational purposes only and is being cited so that efficiency, safety and quality of the patient's care is not compromised This note was prepared using voice recognition software and direct typing Please excuse inadvertent application support manager or typing errors, or uncorrected word substitutions Although every attempt has been made by the provider to proofread this document, occasional misspellings and typographical errors may still be present Due to the previous pandemic, and the use of personal protective equipment (PPE) This may decrease voice recognition accuracy Inadvertent application support manager errors may occur 12/21/2024 Osteoporosis without current [...] software and direct typing Please excuse inadvertent application support manager or typing errors, or uncorrected word substitutions Although every attempt has been made by the provider to proofread this document, occasional misspellings and typographical errors may still be present Due to the previous pandemic, and the use of personal protective equipment (PPE) This may decrease voice recognition accuracy Inadvertent application support manager errors may occur 12/21/2024 Anxiety (ICD-10 - [...] software and direct typing Please excuse inadvertent application support manager or typing errors, or uncorrected word substitutions Although every attempt has been made by the provider to proofread this document, occasional misspellings and typographical errors may still be present Due to the previous pandemic, and the use of personal protective equipment (PPE) This may decrease voice recognition accuracy Inadvertent application support manager errors may occur 12/21/2024 Superficial varicosities (ICD-10 [...] software and direct typing Please excuse inadvertent application support manager or typing errors, or uncorrected word substitutions Although every attempt has been made by the provider to proofread this document, occasional misspellings and typographical errors may still be present Due to the previous pandemic, and the use of personal protective equipment (PPE) This may decrease voice recognition accuracy Inadvertent application support manager errors may occur PLAN OF TREATMENT Pending Test Test Name Order Date TSH 12/21/2024 Lipid Panel 12/21/2024 Exercise Stress Nuclear Test 05/06/2023 COMPREHENSIVE METABOLIC PANEL 12/21/2024 HEMOGLOBIN A1C 12/21/2024 URINALYSIS W/REFLEX CULTURE 12/21/2024 Chest 2 Views Frontal and Lat 12/29/2023 Chest 2 Views Frontal and Lat 12/03/2023 CBC with Differential 12/21/2024 CT Chest w/o Contrast 01/04/2024 VITAMIN B12 12/21/2024 LIPID PANEL, STANDARD 05/11/2024 COMPREHENSIVE METABOLIC PANEL 05/11/2024 CBC (INCLUDES DIFF/PLT) 05/11/2024 URINALYSIS, COMPLETE 05/11/2024 HEMOGLOBIN A1c 05/11/2024 TSH 05/11/2024 VITAMIN D,25-OH,TOTAL,IA 12/21/2024 VITAMIN D,25-OH,TOTAL,IA 05/11/2024 Future Test Test Name Order Date 25OH [...] Coverage Start Date Coverage End Date [facility] [address] [address] [place] [address] [id number] Naif Siddiqui Self - patient is the insured MEDICAL (GENERAL) HISTORY Medical History History ICD Code Arthritis headache anxiety depression fibromyalgia Surgical History Surgery Date(Month/Year) rotator cuff tear repair right Dr. Jose montoya 07/25/2017 right knee replacement 01/10/2016 phlebectomy 2020 index toe, right tubal ligation section x2 Colonoscopy in 2013
--- OUTSIDE RECORDS SUMMARY | 2025-02-14 14:56 | XMS_ITS ---
Author Organization [facility] Address [address] [place] [address] Care Team Providers Care Lead Instructor/Flight Attendant Name Role Phone NEO ODOM Unavailable [phone] REASON FOR VISIT Ins referral - gyne Encounters Encounter Location Date Provider Diagnosis [address] [address] 01/09/2025 NEO ODOM PLAN OF TREATMENT No Information Progress Notes * Michael BEAROB: 1945 (79 yo F)Acc No.[id number]:01/09/2025 Patient:??Ford BEAR :1945?Age:79 Y?Sex:Fe male Address:[address] [place] [address] * true * Date:??
--- OUTSIDE RECORDS SUMMARY | 2025-02-14 14:56 | XMS_ITS | Encounter Summary ---
Author Organization [facility] Address [address] [place] [address] Care Team Providers Care Ged Preparation Teacher Name Role Phone Princess Esquivel MD Primary Care Provider Un available Bertrand Briceno MD Primary Care Provider [facility] Evelyn Rodrigues MD Primary Care Prov ider Nenita Sifuentes PA-C Primary Care Provider [phone] Jt Hills NP Primary Care Provider Wilian murray Encounter Details Date Type Department Care Team Description 05/26/2019 Adolescent Counselor Report Medical Records [address] [place] [address] Nirav Ramirez MD Social History Tobacco Use Types Packs/Day Years [...] on filedocumented in this encounter Care Teams Ged Preparation Teacher Relationship Specialty Start Date End Date Princess Esquivel MD PCP - General Internal Medicine 10/01/18 2 Bertrand Briceno MD PCP - General Internal Medicine 02/12/22 03/16/22 Evelyn Rodrigues MD [address] [place] [address] PCP - General Internal Medicine 05/12/22 05/24/24 Nenita Sifuentes PA-C [address] [place] [address], [place] [address] PCP - General Internal Medicine 03/26/22 05/11/22 tJ Hills NP [address] [place] [address] PCP - General Family Practice 05/25/24 documented as of this encounter
--- OUTSIDE RECORDS SUMMARY | 2025-02-14 14:56 | XMS_ITS | Patient Health Record ---
Author Organization [facility] Address [address] [place] [address] Care Team Providers Care Water Registrar Name Role Phone Jeana MOSES, Jt Primary Care Provider Thanh Patiño Unavailable [phone] Allergies No Known Allergies Reason For Referral [...] Problem Status W/U Status Risk Notes Problem [id number] Fibromyalgia (M79.7) Active confirmed Problem Localized, primary osteoarthritis of the ankle and/or foot (511800230) Primary osteoarthritis, left ankle and foot (M19.072) Active confirmed Problem Localized, primary osteoarthritis of the ankle and/or foot (955750721) Primary osteoarthritis, right ankle and foot (M19.071) Active confirmed Problem Atherosclerosis of onondaga arteries of the extremities (191881833605155) Atherosclerosis of onondaga artery of both lower extremities, with unspecified presence of clinical manifestation (I70.203) Active confirmed Plan Of Treatment Pending Test Test Name Order Date X ray : Foot, left 3V 08/21/2022 X ray : Foot, right 3V 08/21/2022 Insurance Providers Payer Name Payer Address Payer Phone Subscriber Number Group Number Insured Name Patient Relationship to Insured Coverage Start Date Coverage End Date [facility] [address] [place] [phone] [id number] Ford Martínez Self - patient is the insured Medical (General) History Medical History History ICD Code Anxiety Arthritis Back,Hip,and Knee pain Broken bones Cataracts Depression Fibromyalgia Gall bladder problems Headaches/Migraines Osteoporosis Warts Mumps Joint implants/screws Bone implants/screws Surgical History Surgery Date(Month/Year) knee surgery, right foot surgery shoulder surgery section
--- OUTSIDE RECORDS SUMMARY | 2025-02-14 14:56 | XMS_ITS | Encounter Summary ---
Author Organization [facility] Address [address] [place] [address] Care Team Providers Care Branch Manager Name Role Phone Princess Esquivel MD Primary Care Provider Un available Bertrand Briceno MD Primary Care Provider [facility] Evelyn Rodrigues MD Primary Care Prov ider Nenita Sifuentes PA-C Primary Care Provider [phone] Jt Hills NP Primary Care Provider Wilian murray Encounter Details Date Type Department Care Team Description 07/21/2018 Electronics Instructor Report Medical Records [address] [place] [address] Suellen Benoit MD Social History Tobacco Use Types Packs/Day Years Used Date Smoking Tobacco: Never Assessed Sex Assigned at Date Recorded Not on file Job Start Date Occupation Industry Not on file Not on file Not on file documented as of this encounter Plan of Treatment Not on file documented as of this encounter Visit Diagnoses Not on filedocumented in this encounter Care Teams Branch Manager Relationship Specialty Start Date End Date Princess Esquivel MD PCP - General Internal Medicine 10/01/18 2 Bertrand Briceno MD PCP - General Internal Medicine 02/12/22 03/16/22 Evelyn Rodrigues MD [address] [place] [address] [phone] PCP - General Internal Medicine 05/12/22 05/24/24 Nenita Sifuentes PA-C [address] [place] [address] [id number] PCP - General Internal Medicine 03/26/22 05/11/22 Jt Hills, JOSUÉ [address] [place] [address] PCP - General Family Practice 05/25/24 documented as of this encounter
--- OUTSIDE RECORDS SUMMARY | 2025-02-14 14:56 | XMS_ITS | Encounter Summary ---
Author Organization [facility] Address [address] [place] [address] Care Team Providers Care Automotive Professional Name Role Phone Princess Esquivel MD Primary Care Provider Un available Bertrand Briceno MD Primary Care Provider [facility] Evelyn Rodrigues MD Primary Care Prov ider Nenita Sifuentes PA-C Primary Care Provider [phone] Jt Hills NP Primary Care Provider Wilian murray Encounter Details Date Type Department Care Team Description 11/16/2017 Hospital Medical Records [address] [place] [id number] [place] [address] Social History Tobacco Use Types Packs/Day Years [...] on filedocumented in this encounter Care Teams Automotive Professional Relationship Specialty Start Date End Date Princess Esquivel MD PCP - General Internal Medicine 10/01/18 2 Bertrand Briceno MD PCP - General Internal Medicine 02/12/22 03/16/22 Evelyn Rodrigues MD [address] [place] [address] [phone] PCP - General Internal Medicine 05/12/22 05/24/24 Nenita Sifuentes PA-C [address] [place], [place] [phone] PCP - General Internal Medicine 03/26/22 05/11/22 Jt Hills NP [address] [place] [address] PCP - General Family Practice 05/25/24 documented as of this encounter
--- OUTSIDE RECORDS SUMMARY | 2025-02-14 14:56 | XMS_ITS ---
Author Organization [facility] Address [address] [place] [address] Care Team Providers Care Neck Fitter Name Role Phone NEO ODOM Unavailable [phone] REASON FOR VISIT referral number Encounters Encounter Location Date Provider Diagnosis [address] [address] 12/29/2024 NEO ODOM PLAN OF TREATMENT No Information Progress Notes * Michael BEAROB: 1945 (79 yo F)Acc No.[id number]:12/29/2024 Patient:??Ford BEAR :1945?Age:79 Y?Sex:Fe male Address:[address] [place] [address] * true * Date:??
--- OUTSIDE RECORDS SUMMARY | 2025-02-14 14:56 | XMS_ITS | Encounter Summary ---
Author Organization [facility] Address [address] [place] [address] Care Team Providers Care Tool Room Lathe Operator Name Role Phone Princess Esquivel MD Primary Care Provider Un available Bertrand Briceno MD [facility] Primary Care Prov ider Nenita Sifuentes PA-C Primary Care Provider [phone] Jt Hills NP Primary Care Provider Wilian murray Reason for Referral * EXTERNAL (Urgent) - Authorized/Booked Specialty Diagnoses / Procedures Referred By Contact Referred To Contact ORTHOPEDICS / Orthopedic Procedures REFERRAL TO ORTHOPEDICS (IN NETWORK) Stacy Portillo NP [address] [place] [address] [facility] [address] [place] [address] Referral ID Status Reason Start Date Expiration Date V isits Requested Visits Authorized SEE NOTE Authorized/B ooked 04/29/2019 07/30/2019 1 1 Encounter Details Date Type Department Care Team Description 04/29/2019 Orders Only Adult Medicine [facility] [address] [place] [address] Stacy Portillo NP Social History Tobacco Use Types Packs/Day Years [...] filedocumented in this encounter Care Teams Tool Room Lathe Operator Relationship Specialty Start Date End Date Princess Esquivel MD PCP - General Internal Medicine 10/01/18 Bertrand Briceno MD PCP - General Internal Medicine 02/12/22 03/16/22 Evelyn Rodrigues MD [address] [place], [place] [phone] PCP - General Internal Medicine 05/12/22 05/24/24 Nenita Sifuentes PA-C [address] [place] [address] PCP - General Internal Medicine 03/26/22 05/11/22 Jt Hills PROFESSIONAL ATHLETES COACH [address] [place] [address] PCP - General Family Practice 05/25/24 documented as of this encounter
--- OUTSIDE RECORDS SUMMARY | 2025-02-14 14:56 | XMS_ITS | Continuity of Care Document ---
Author Organization [facility] Address [address] [place] [address] Phone Care Team Providers Care Cell Manager Name Role Phone Rubi VALIENTE, Matt Unavailable Unavailable Advance Directives Directive Yes / No Effective Date File Name No Information Encounters Encounter Description Practice Location Reason(s) For Visit Diagnoses Date Provider Providers Copied on Encounter [facility], [address], [place], [id number], [place] tel:[phone] [place] [facility] No Information Rubi Gutierrez. [address], [address], [place], [address], [place]. tel:[phone] Referring Provider: Jt Hills NP, [address], [place], [address]. tel:[phone] Family History Family Member Type Diagnosis Age At Onset No Information Payers Payer name Insurance type Covered republican ID Authoriza tion(s) No Information Social History [...]
--- OUTSIDE RECORDS SUMMARY | 2025-02-14 14:56 | XMS_ITS | Encounter Summary ---
Author Organization [facility] Address [address] [place] [address] Care Team Providers Care Children'S Ministries Director Name Role Phone Princess Esquivel MD Primary Care Provider Un available Bertrand Briceno MD Primary Care Provider [facility] Evelyn Rodrigues MD Primary Care Prov ider Nenita Sifuentes PA-C Primary Care Provider [phone] Jt Hills NP Primary Care Provider Wilian murray Encounter Details Date Type Department Care Team Description 12/08/2019 Transfer Records Medical Records [address] [place] [address] Abstract, Provider Social History Tobacco Use Types [...] on filedocumented in this encounter Care Teams Children'S Ministries Director Relationship Specialty Start Date End Date Princess Esquivel MD PCP - General Internal Medicine 10/01/18 2 Bertrand Briceno MD PCP - General Internal Medicine 02/12/22 03/16/22 Evelyn Rodrigues MD [address] [place] [address] PCP - General Internal Medicine 05/12/22 05/24/24 Nenita Sifuentes PA-C [address] [place] [address] PCP - General Internal Medicine 03/26/22 05/11/22 Jt Hills NP [address] [place] [address] PCP - General Family Practice 05/25/24 documented as of this encounter
--- OUTSIDE RECORDS SUMMARY | 2025-02-14 14:56 | XMS_ITS | Encounter Summary ---
Author Organization [facility] Address [address] [place] [address] Care Team Providers Care Crop Farm Workers Name Role Phone Bertrand Briceno MD Primary Care Provider [phone] Encounter Details Date Type Department Care Team (Late st Contact Info) Description 02/09/2025 Telephone Obstetrics and Gynecology - [address] [phone] Vania Pathak MD [address] [place], [place] Social History Tobacco Use Types Packs/Day Years Used Date Smoking Tobacco: Never Smokeless Tobacco: Never Alcohol Use Standard Drinks/Week Comments No 0 (1 standard drink = 0.6 oz pur e alcohol) Comments No Sex and Gender Information Value Date Recorded Sex Assigned at Not on file Legal Sex Female 11:13 PM EST Gender Identity Not on file Sexual Orientation Not on file documented as of this encounter Progress Notes * Torri Mcnulty - 02/09/2025 12:40 PM EDT Spoke with Belinda orozco from [facility] and [place] [address]. This is regarding procedure scheduled on 03/01/[address] Pathak. Ref#-[id number]. * Torri Mcnulty - 02/09/2025 11:34 AM EDT Hysteroscopy, D & C, possible myosure has been scheduled on 03/01/2025 at [facility] with Dr. Pathak. Patient has been notified by phone and a letter has been sent to her. calendar hasbeen updated and schedulers have been notified. documented in this encounter Plan of Treatment Upcoming Encounters Date Type Department Care Team (Latest Contact Info) Description 03/01/2025 1:00 PM EDT Hospital Encounter [facility] [place] [address] [place] [phone] Vania Pathak MD [address] [place] [phone] 03/01/2025 1:00 PM EDT - 03/01/2025 2:15 PM EDT Surgery [facility] OR [address] [place] [phone] Vania Pathak MD [address] [place] [phone] HYSTEROSCOPY WITH dilation and curttage [29647 (CPT??)] Scheduled Procedures Name Priority Associated Diagnoses Date/Ti me HYSTEROSCOPY WITH ENDOMETRIAL RESECTION Postmenopausal bleeding Fluid in endometrial cavity 03/01/2025 1:00 PM EDT documented as of this encounter Visit Diagnoses Not on filedocumented in this encounter Care Teams Crop Farm Workers Relationship Specialty Start Date End Date Bertrand Briceno MD [address] [place] [address] PCP - General Internal Medicine 01/09/25 documented as of this encounter
== END 2025-02-14 13:53 | disposition home or self-care (01) ==
LOC: HO.HVS 13:36
PROVIDERS: PCP Nurse Practitioner Acute Care; Visit Provider Surgery Vascular Surgery
DX: I83.12 Varicose veins of left lower extremity with inflammation (principal)
CPT/HCPCS: 99214

== ENCOUNTER → 2025-02-14 13:35 | Outpatient (BNVA) | payer OTHER, SELFPAY | PROVIDERS: PCP Nurse Practitioner Acute Care; Visit Provider Surgery Vascular Surgery | DX: I83.12 Varicose veins of left lower extremity with inflammation (principal) | CPT/HCPCS: 99212 ==

== ENCOUNTER 2025-07-19 15:06 | Outpatient (AMB) | payer OTHER, MEDICAID, SELFPAY ==
[2025-07-19 15:07] VITALS: BP 119/62; PULSE 66; O2SAT 97
--- NOTE | 2025-07-19 15:07 | MHC.OFFVIS ---
Vital Signs 07/19/25 15:07 Height 5 ft 4 in Weight 175 lb BMI 30.0 BP 119/62 Blood Pressure Location Rt brachial Position Sitting Pulse 66 Pulse Source Pulse Oximeter Pulse Oximetry (%) 97 Oxygen Delivery Method Room Air Intake Visit Reasons: Pulmonary Nodule Show Host/Hostess Required: Yes Show Host/Hostess Name: Nenita Bajwa Becky Allergies No Known Allergies (No Known Allergies*) Allergy (Verified 07/19/25 15:14) HPI HPI Pulmonary Nodule: Details: 79-year-old lady, nonsmoker, with underlying history of asthma in childhood that resolved in her 20s and came back after patient moved from [place] to [facility] approximately 7 years prior. Patient also had CT chest that demonstrated pulmonary nodules that been stable on follow-up CT scan. She denies prior family history of lung disease. Patient denies exposure to industrial dusts. She continues to use Trelegy and albuterol MDI with good control of her asthma symptoms. Patient also complains of multiple environmental allergies. Patient has completed immunologic testing that showed no significant min allergic component. She also has completed her pulmonary function test that showed mild obstruction, but does not explain her dyspnea on exertion. Today patient has complain of worsening orthopnea lower extremity edema associated with further dyspnea on exertion. [facility] Surgical History History of cataract surgery History of shoulder surgery History of toe surgery History of section History of knee replacement procedure of right knee Family History Father Alzheimers disease Mother Vaginal cancer Brother Stomach cancer Son Substance use disorder Sister Substance use disorder Social History Housing: Apartment Patient Tobacco Use Status: Never used Tobacco e-Cigarette/Vaping Use: Never Used Second Hand Smoke Exposure: No service: No Current occupational status: retired Current occupation: rt handed Review of Systems Const Denies daytime sleepiness, Denies excessive sweating, Denies fatigue, Denies fever(s), Denies lethargy, Denies malaise, Denies night sweats, Denies snoring and Denies weight loss Eyes Denies blurry vision and Denies itchy eyes ENT Denies nasal congestion, Denies post nasal drip, Denies sinus pain, Denies sinus pressure and Denies other ( Thrush) Card Denies chest pain, Reports pedal edema, Denies dyspnea, Reports dyspnea on exertion, Reports orthopnea and Denies paroxysmal nocturnal dyspnea Resp Denies cough, Denies hemoptysis, Denies excessive phlegm production, Denies dyspnea, Reports dyspnea on exertion, Denies snoring and Denies wheezing GI Denies abdominal pain and Denies heartburn Musc Denies myalgias, Denies arthralgias and Denies joint swelling Skin/Breast Denies rash Neuro Denies memory loss and Denies seizure-like activity Psych Denies abnormal sleep pattern, Denies anxiety and Denies memory loss Endo Denies excessive sweating, Denies fatigue and Denies heat intolerance Star/Lymph Denies easy bruising Aller/Immun Denies itchy eyes, Denies seasonal rhinorrhea and Denies wheezing Physical Exam Vital Signs: Last Vital Signs Pulse 66 07/19/25 15:07 BP 119/62 07/19/25 15:07 Pulse Ox 97 07/19/25 15:07 Oxygen Delivery Method Room Air 07/19/25 15:07 BMI result Body Mass Index 30.0 Const General: no acute distress and alert Nutritional Appearance: not obese Orientation/consciousness: Other orientation findings ( oriented) HEENT Head: Yes atraumatic Eyes General: appearance normal, both eyes and all related structures Sclerae: sclerae normal EOM: EOMs intact bilaterally Neck Neck: Yes supple Lymphatic: no lymphadenopathy noted Resp Effort & Inspection: normal respiratory effort and no use of accessory muscles Auscultation: clear to auscultation bilaterally Cardio Rate: regular rate Rhythm: regular rhythm Heart sounds: no gallops, no murmurs and no rubs Skin General skin exam: other ( warm) Extrem General: No clubbing, No cyanosis and Yes edema (1+ bilateral) Assessment & Plan Assessment & Plan (1) Asthma: Code(s): J45.909 - Unspecified asthma, uncomplicated Category: Medical Plan: Well controlled current regimen of Trelegy and albuterol MDI. Continue current regimen. (2) Orthopnea: Code(s): R06.01 - Orthopnea Category: Medical Plan: Orthopnea with lower extremity edema, will start on low-dose Lasix. Medications: New furosemide (Lasix) 20 mg PO QAM 30 tabs 6RF Coding Level of Care Code Est Pt Level 4 (41476) Diagnoses Asthma J45.909 Orthopnea R06.01
== END 2025-07-19 15:29 | disposition home or self-care (01) ==
LOC: HO.HPS 15:06
PROVIDERS: PCP Nurse Practitioner Acute Care; Visit Provider Internal Medicine Pulmonary Disease
DX: J45.909 Unspecified asthma, uncomplicated (principal); R06.01 Orthopnea
CPT/HCPCS: 99214

== ENCOUNTER → 2025-07-19 15:06 | Outpatient (BNVA) | payer OTHER, SELFPAY | PROVIDERS: PCP Nurse Practitioner Acute Care; Visit Provider Internal Medicine Pulmonary Disease | DX: R06.01 Orthopnea (principal); J45.909 Unspecified asthma, uncomplicated | CPT/HCPCS: 99212 ==